=== PATIENT | male | born 1965 | race Two or more races ===

== ENCOUNTER → 2017-09-20 06:50 | Outpatient (CLI) | payer MEDICARE, MEDICAID, SELFPAY ==
--- NOTE | 2017-09-20 06:54 | CA_ITS ---
CA echo doppler complete PROCEDURE: INDICATIONS FOR THE TEST: Chest pain COPD Heart Murmur Tobacco Smoking Palpitations Fatigue Syncope Edema HypertensionXDiabetes MellitusX Rheumatic Fever SOB NOLAN Obesity HyperlipidemiaX Family History HD Additional History CAD,CABG PATIENT INFORMATION HEIGHT: 71 WEIGHT:200 GENDER: Male B/P:164/76 2-D/M-MODE INTERPRETATION: 2-D MEASUREMENTS OBSERVED VALUES IN CMS Right Ventricular Dimension (RVDd) 3.2 Interventricular Septum (Thickness)(IVsd) .9 Left Ventricular Internal Dimensions(LVIDd) 6.0 Left Ventricular Posterior Wall (Thickness)(LVPWd) .9 Aortic Root 3.3 Aortic Cusp Separation 1.5 Left Atrial Dimensions (LAD) 3.9 2D 1. Left atrium is mildly enlarged, left ventricle is normal size, there is mild qualitative concentric left ventricular hypertrophy present, visually estimated ejection fraction 55% with no obvious regional wall motion abnormality. 2. The right atrium and right ventricle are mildly enlarged with normal contractility. 3. The aortic valve is minimally thickened and fibrosed. 4. The mitral and tricuspid valvular grossly normal. 5. The pulmonic valve is poorly visualized. 6. No significant pericardial effusion noted. DOPPLER INTERROGATION: Doppler interrogation of the aortic, mitral and tricuspid valvular presence of mild mitral and tricuspid regurgitation, calculated right ventricular systolic pressure is 43 mmHg consistent with moderate pulmonary hypertension, grade 1 diastolic dysfunction seen with tissue Doppler evidence of raised left atrial pressure. CONCLUSION: 1. Mildly enlarged left atrium, normal left ventricular size, mild qualitative concentric left ventricular hypertrophy, visually estimated ejection fraction 55% with no obvious regional wall motion abnormality, grade 1 diastolic dysfunction seen with tissue Doppler evidence of raised left atrial pressure. 2. Mildly enlarged right ventricle with normal contractility. 3. Mild mitral and tricuspid regurgitation, calculated right ventricular systolic pressure is 43 mmHg consistent with moderate pulmonary hypertension. 4. No significant pericardial effusion noted.
--- NOTE | 2017-09-20 06:54 | NM_ITS ---
History and Indications: Coronary artery disease, bypass surgery, hypertension, diabetes hyperlipidemia family history chest pain. Procedure: Patient received a 0.4 mg of Lexiscan, resting heart rate was 77 beats prominent, resting blood pressure 194/99, with Lexiscan maximum heart rate achieved was 94 bpm which is less than 85% of the maximum predicted heart rate and a blood pressure 177/92. Patient describes of chest pain or shortness of breath with Lexiscan. Electrocardiogram: Resting electrocardiogram showed sinus bradycardia inferolateral ST-T wave changes consider strain pattern or ischemia. With Lexiscan there is less than 1.[address] segment depression noted from the baseline EKG. The EKG portion of the Lexiscan Myoview is nondiagnostic. Cardiac stress and resting SPECT images: Cardiac stress and rest SPECT images were obtained using technetium 99 Myoview 31 mCi at stress and the 10.5 mCi at rest. Gated SPECT further analysis of segmental wall motion and calculation of the ejection fraction also done. Cardiac stress and rest images show a fixed defect involving the inferolateral and posterobasal wall consistent with area of prior myocardial scarring, in addition there is reversible ischemia involving the anterolateral wall. Computer derived ejection fraction is 39% with moderate inferolateral wall hypokinesis, right ventricle is normal size and contractility. Conclusion: 1. The EKG portion of the Lexiscan Myoview is nondiagnostic. 2. Scintigraphic evidence of reversible ischemia involving the anterolateral wall, and 80 of prior myocardial scarring inferolateral and posterobasal wall. Computer derived ejection fraction is 39% segmental wall motion abnormality described above, right ventricle is normal size and contractility. 3. Abnormal Lexiscan Myoview study.
--- NOTE | 2017-09-20 07:29 | HMH.ITSHM ---
ZOLOFT METOPROLOL METFORMIN LISINOPRIL CRESTOR GLIMIPRIDE ASA PLAVIX
--- NOTE | 2017-09-20 09:13 | HMH.ITSHM ---
ZOLOFT METOPROLOL METFORMIN LISINOPRIL CRESTOR GLIMIPRIDE ASA PLAVIX
== END ==
PROVIDERS: Visit Provider Internal Medicine Cardiovascular Disease
DX: R06.00 Dyspnea, unspecified (principal)
CPT/HCPCS: 78452; 93017; 93306; A9502; J2785

== ENCOUNTER → 2018-09-11 07:43 | Outpatient (CLI) | payer MEDICARE, SELFPAY ==
--- NOTE | 2018-09-11 07:48 | NM_ITS ---
CARDIOLITE SPECT MYOCARDIAL PERFUSION LEXISCAN, REST AND STRESS: [facility] REVIEW QGS EF AND WALL MOTION EVALUATION: QPS - PERFUSION EVALUATION HISTORY: sob DOSE: 10.65 mCi technetium 99m mibi intravenously at rest followed by 31.6 mCi technetium 99m mibi following the intravenous ministration of 0.4 mg of Lexiscan. Resting blood pressure is 186/103. Stress blood pressure 167/86. FINDINGS: Ejection fraction is calculated to be 39%. Stress images reveal transient left ventricular dilatation with severely reduced activity throughout the inferior wall apex lateral wall and a portion of the anterior wall. Rest images reveal significant improvement in the lateral wall and apex with improved activity in the inferior wall yet still diminished without normal uptake. Gated images calculated ejection fraction of 39% with inferoapical hypokinesis and lateral hypokinesis. This is a high risk abnormal stress test IMPRESSION:
[2018-09-11 08:49] LABS: Basophils % 0.5 % (0.1-2.0); Eosinophils # 0.1 K/mm3 (0.0-0.4); Eosinophils % 1.9 % (0.1-12.0); Hematocrit 39.4 % (42.0-52.0); Hemoglobin 12.8 g/dL (14.1-18.0); Lymphocytes # 1.2 K/mm3 (0.7-4.5); Lymphocytes % 22.9 % (10-50); Mean Corpuscular HGB Conc 32.6 g/dL (31.8-35.4); Mean Corpuscular Hemoglobin 25.4 pg (27.0-31.2); Mean Platelet Volume 7.4 fl (7.4-10.4); Monocytes # 0.3 K/mm3 (0.1-1.0); Monocytes % 5.5 % (1.7-9.3); Neutrophils # 3.7 K/mm3 (1.8-7.8); Neutrophils % 69.2 % (37.0-80.0); Platelet Count 183 K/mm3 (142-424); Red Blood Count 5.05 M/mm3 (4.60-6.20); Red Cell Distribution Width 13.5 % (11.5-17.5); White Blood Count 5.3 K/mm3 (4.8-10.8)
[2018-09-11 09:24] LABS: Alanine Aminotransferase 35 U/L (12-78); Albumin Level 3.2 gm/dL (3.4-5.0); Alkaline Phosphatase 51 U/L (46-116); Anion Gap 11.2 mEq/L (5-15); Aspartate Amino Transferase 21 U/L (15-37); Bilirubin,Total 0.7 mg/dL (0.2-1.0); Blood Urea Nitrogen 26 mg/dL (7-18); Calcium 8.2 mg/dL (8.5-10.1); Carbon Dioxide 29 mmol/L (21.0-32.0); Chloride 105 mmol/L (98-107); Chol/HDL Ratio 6.9 (1-3.5); Cholesterol 337 mg/dL (140-200); Creatinine,Serum 0.89 mg/dL (0.70-1.30); Estimated Glomerular Filt Rate 89 ml/min (>60); GFR (African American) 108 ML/MIN (>60); Globulin 3.2 gm/dl (1.3-3.2); Glucose 147 mg/dL (74-106); HDL Cholesterol 49 mg/dL (27-67); LDL Cholesterol 257 mg/dL (0-130); Potassium 4.2 mmoL/L (3.5-5.1); Sodium 141 mmol/L (136-145); Thyroid Stimulating Hormone 1.11 uIU/ml (0.358-3.740); Total Protein,Serum 6.4 gm/dL (6.4-8.2); Triglycerides 157 mg/dL (30-200); VLDL Cholesterol 31 mg/dL (0-40)
--- NOTE | 2018-09-11 09:51 | HMH.ITSHM ---
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 [] amlodipine lipitor carvedilol metformin asa lisinopril zoloft
--- NOTE | 2018-09-11 10:48 | XR_ITS ---
XR foot RT min 3V HISTORY: ITS.REASON: WINIFRED FOOT PAIN ORDERING PHYSICIAN: Claudia Adhikari APRN PATIENT AGE: 53 years COMPARISON: None FINDINGS: There are hypertrophic changes dorsally at the talonavicular joint. No fracture or dislocation. No lytic or blastic change. There is normal alignment. There is some mild vascular calcification IMPRESSION: Mild degenerative change at the talonavicular joint
--- NOTE | 2018-09-11 10:48 | XR_ITS ---
XR foot LT min 3V HISTORY: ITS.REASON: WINIFRED FOOT PAIN ORDERING PHYSICIAN: Claudia Adhikari APRN PATIENT AGE: 53 years COMPARISON: None FINDINGS: Degenerative changes are present at the calcaneocuboid joint with some mild hypertrophic change laterally. There are some mild degenerative change is also with a lung navicular joint with mild bony hypertrophic change. No fracture or dislocation. No lytic or blastic change. 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
[2018-09-11 12:22] LABS: Hemoglobin A1C 7.5 % (0.0-7.0)
[2018-09-13 08:57] LABS: Vitamin B12 388 pg/mL (232-1245)
[2018-09-13 15:11] LABS: Ferritin 32 ng/mL (8-388)
[2018-09-15 08:23] LABS: Iron 73 ug/dL (38-169); Iron Saturation 23 % (15-55); UIBC 246 ug/dL (111-343)
[2018-09-15 18:02] LABS: Folate 12.4 ng/mL (>3.0)
== END ==
PROVIDERS: PCP Nurse Practitioner Family; Visit Provider Nurse Practitioner Family
DX: R07.9 Chest pain, unspecified (principal); R06.09 Other forms of dyspnea; E11.49 Type 2 diabetes mellitus with other diabetic neurological complication; I10 Essential (primary) hypertension; M79.672 Pain in left foot; M79.671 Pain in right foot; Z79.84 Long term (current) use of oral hypoglycemic drugs
CPT/HCPCS: 73630; 78452; 80053; 80061; 82607; 82728; 82746; 83036; 83540; 83550; 84443; 85025; 93017; A9502; J2785

== ENCOUNTER → 2019-03-14 16:55 | Outpatient (CLI) | payer MEDICARE, SELFPAY ==
[2019-03-14 17:28] LABS: Basophils % 0.6 % (0.1-2.0); Eosinophils # 0.2 K/mm3 (0.0-0.4); Eosinophils % 2.8 % (0.1-12.0); Hematocrit 36.6 % (42.0-52.0); Hemoglobin 12.4 g/dL (14.1-18.0); Lymphocytes # 1.6 K/mm3 (0.7-4.5); Lymphocytes % 25.9 % (10-50); Mean Corpuscular HGB Conc 33.9 g/dL (31.8-35.4); Mean Corpuscular Hemoglobin 27.4 pg (27.0-31.2); Mean Corpuscular Volume 80.8 fl (80-94); Mean Platelet Volume 8.3 fl (7.4-10.4); Monocytes # 0.3 K/mm3 (0.1-1.0); Monocytes % 4.9 % (1.7-9.3); Neutrophils % 65.7 % (37.0-80.0); Platelet Count 168 K/mm3 (142-424); Red Blood Count 4.53 M/mm3 (4.60-6.20); Red Cell Distribution Width 13.8 % (11.5-17.5); White Blood Count 6.1 K/mm3 (4.8-10.8)
[2019-03-14 18:46] LABS: Hemoglobin A1C 6.9 % (0.0-7.0)
[2019-03-14 21:25] LABS: Alanine Aminotransferase 37 U/L (12-78); Albumin Level 3.3 gm/dL (3.4-5.0); Albumin/Globulin Ratio 1.2 (1.1-1.8); Alkaline Phosphatase 54 U/L (46-116); Anion Gap 13.6 mEq/L (5-15); Aspartate Amino Transferase 32 U/L (15-37); Bilirubin,Total 0.5 mg/dL (0.2-1.0); Blood Urea Nitrogen 21 mg/dL (7-18); Calcium 8.2 mg/dL (8.5-10.1); Carbon Dioxide 27 mmol/L (21.0-32.0); Chloride 104 mmol/L (98-107); Creatinine,Serum 0.95 mg/dL (0.70-1.30); Estimated Glomerular Filt Rate 83 ml/min (>60); GFR (African American) 100 ML/MIN (>60); Globulin 2.8 gm/dl (1.3-3.2); Glucose 97 mg/dL (74-106); Potassium 3.6 mmoL/L (3.5-5.1); Sodium 141 mmol/L (136-145); Total Protein,Serum 6.1 gm/dL (6.4-8.2)
[2019-03-16 09:16] LABS: Creatinine, Urine 59.3 mg/dL (Not Estab.)
== END ==
PROVIDERS: Visit Provider Nurse Practitioner Family
DX: E11.59 Type 2 diabetes mellitus with other circulatory complications (principal); D64.9 Anemia, unspecified; Z79.84 Long term (current) use of oral hypoglycemic drugs
CPT/HCPCS: 36415; 80053; 82043; 82570; 83036; 85025

== ENCOUNTER → 2019-08-08 15:05 | Outpatient (CLI) | payer OTHER, SELFPAY ==
[2019-08-08 15:37] LABS: Basophils % 0.5 % (0.1-2.0); Eosinophils # 0.1 K/mm3 (0.0-0.4); Eosinophils % 2.8 % (0.1-12.0); Hemoglobin 12.6 g/dL (14.1-18.0); Lymphocytes # 1.4 K/mm3 (0.7-4.5); Lymphocytes % 28.8 % (10-50); Mean Corpuscular HGB Conc 33.1 g/dL (31.8-35.4); Mean Corpuscular Hemoglobin 26.6 pg (27.0-31.2); Mean Corpuscular Volume 80.4 fl (80-94); Mean Platelet Volume 7.8 fl (7.4-10.4); Monocytes # 0.3 K/mm3 (0.1-1.0); Platelet Count 170 K/mm3 (142-424); Red Blood Count 4.73 M/mm3 (4.60-6.20); Red Cell Distribution Width 13.6 % (11.5-17.5); White Blood Count 4.8 K/mm3 (4.8-10.8)
[2019-08-08 16:30] LABS: Alanine Aminotransferase 19 U/L (12-78); Albumin Level 4.1 g/dl (3.5-5.0); Albumin/Globulin Ratio 1.8 (1.1-1.8); Alkaline Phosphatase 50 U/L (38-126); Anion Gap 10.4 mEq/L (5-15); Aspartate Amino Transferase 27 U/L (17-59); Bilirubin,Total 0.4 mg/dl (0.2-1.3); Blood Urea Nitrogen 29 mg/dl (9-20); Calcium 9.1 mg/dl (8.4-10.2); Carbon Dioxide 26 mmol/L (22.0-30.0); Chloride 100 mmol/L (98-107); Estimated Glomerular Filt Rate 78 ml/min (>60); GFR (African American) 94 ML/MIN (>60); Globulin 2.3 g/dL (1.3-3.2); Glucose 145 mg/dl (74-100); Potassium 4.4 mmoL/L (3.5-5.1); Sodium 132 mmol/L (136-145); Total Protein,Serum 6.4 g/dl (6.3-8.2)
[2019-08-08 18:13] LABS: Hemoglobin A1C 7.5 % (4.0-6.0)
== END ==
PROVIDERS: Visit Provider Nurse Practitioner Family
DX: I10 Essential (primary) hypertension (principal); E11.49 Type 2 diabetes mellitus with other diabetic neurological complication; Z79.84 Long term (current) use of oral hypoglycemic drugs
CPT/HCPCS: 36415; 80053; 83036; 85025

== ENCOUNTER 2019-08-22 18:15 | Emergency (ER) | payer OTHER, SELFPAY ==
[2019-08-22 18:26] VITALS: BP 154/86; PULSE 83; RESP 16; TEMP 36.9; O2SAT 98; BMI 32.2
--- NOTE | 2019-08-22 18:49 | HMH.EDUTC ---
[facility] Disposition Clinical Impression: Toe infection Disposition: Home, Self-Care Condition on Discharge: Good Instructions: DI for Wound Infection, Clindamycin, Bacitracin Topical Additional Instructions: Keep area clean and dry and clean with antibacterial soap and water and apply Bacitracin to nailbed area as prescribed and loose non-occlusive dressing *Take oral antibiotics as prescribed Follow up with Dr Drew as soon as possible call office for appointment Return if needed Straight to ER if any life threatening symptoms Prescriptions: Bacitracin [Bacitracin Oint 0.9GM UDP] 1 each TP TID 10 Days #30 packet Transmission Status: Pending to [id number] clindamycin HCL [Clindamycin HCl 300mg Cap] 300 mg PO Q6 10 Days #40 cap Transmission Status: Pending to [id number] Referrals: Claudia Adhikari APRN [Primary Care Provider] - As needed Monse Drew DPM [Staff Physician] - As needed (Call office tomorrow for appointment and follow up as soon as appointment) Time of Disposition: 19:03 Medical Decision Making - Jose Manuel Inquiry Pt receiving controlled substance: No Jose Manuel was queried for this patient: No Vital Signs: 08/22/19 18:26 Temperature 98.4 F Temperature Source Oral Pulse Rate [Right Brachial] 83 Respiratory Rate 16 Blood Pressure [Right Arm] 154/86 H Blood Pressure Mean [Right Arm] 108 Blood Pressure Source [Right Arm] Automatic Cuff Blood Pressure Position [Right Arm] Sitting 02 Sat by Pulse Oximetry 98 Oxygen Delivery Method Room Air - Physician Consults Physician Consulted: Dr Drew Time: 18:55 Reason -: Podiatry Eval/Care Comment/Response: Spoke with Dr Drew and informed her of patient and findings on left great toe and will treat with Clindamycin oral, and bacitracin to nailbed area and have him call clinic for appointment for follow up and further treatment and she agreed [facility] HPI - General Stated complaint: AO [id number] injured L Big toe Time Seen by Provider: 08/22/19 18:49 Mode of Arrival: Ambulatory Source of Information: Patient Limitations: No Limitations Description of Symptoms (Recalled from Triage Doc. by RN): Pt advises he was working in his basement when it was flooding and when he took his boot off his left great toenail was in his sock. pt is a diabetic HEENT Symptoms (Recalled from RN notes): No Resp Symptoms (Recalled from RN notes): No Skin Symptoms (Recalled from RN notes): No MS Symptoms (Recalled from RN notes): No Functional Status (Recalled from RN notes): na - History of Present Illness Provider Complaint: Patient states that he stomped his toe a couple of days ago and hurt his toe and nail area States then his basement was flooding and he stood in water in his basement for a little while and his feet was wet States that today he took his sock off and his toe nail fell off and his toe looked red and infected so he came in to get it checked - Related Data Home Medications Medication Instructions Recorded Confirmed Aspirin 81 mg PO DAILY 09/21/17 08/22/19 Clopidogrel Bisulfate [Plavix 75mg 75 mg PO DAILY 09/21/17 08/22/19 Tab] Glimepiride [Amaryl] 2 mg PO DAILY 09/21/17 08/22/19 Metformin HCl [Glucophage 500mg 0 mg PO BID 09/21/17 08/22/19 Tablet] Metoprolol Tartrate 50 mg PO BID 09/21/17 08/22/19 Rosuvastatin Calcium [Crestor] 20 mg PO DAILY 09/21/17 08/22/19 Sertraline HCl [Zoloft] 50 mg PO DAILY 09/21/17 08/22/19 lisinopriL [Lisinopril 20mg Tab] 20 mg PO DAILY 09/21/17 08/22/19 Amlodipine Besylate [Norvasc 5mg 5 mg PO DAILY 09/22/17 08/22/19 tablet] Previous Rx's Medication Instructions Recorded Bacitracin [Bacitracin Oint 0.9GM 1 each TP TID 10 Days #30 packet 08/22/19 UDP] clindamycin HCL [Clindamycin HCl 300 mg PO Q6 10 Days #40 cap 08/22/19 300mg Cap] Allergies Allergy/AdvReac Type Severity Reaction Status Date / Time No Known Allergies Allergy Verified 08/22/19 18:24 - Worker's Comp
[2019-08-22 19:05] VITALS: BP 150/80; PULSE 80; RESP 16; TEMP 36.7; O2SAT 98
== END 2019-08-22 19:05 | disposition home or self-care (01) ==
PROVIDERS: Emergency Provider Nurse Practitioner; PCP Nurse Practitioner Family
DX: L03.032 Cellulitis of left toe (principal); E11.621 Type 2 diabetes mellitus with foot ulcer; Z79.84 Long term (current) use of oral hypoglycemic drugs; E78.5 Hyperlipidemia, unspecified; I10 Essential (primary) hypertension; Z95.1 Presence of aortocoronary bypass graft; Z79.899 Other long term (current) drug therapy
CPT/HCPCS: 99201

== ENCOUNTER 2019-11-15 20:00 | Observation (INO) | payer MEDICARE, OTHER, SELFPAY ==
[2019-11-15] VITALS (8 sets, daily range): BP systolic 141–173; BP diastolic 57–94; PULSE 60–85; RESP 12–18; TEMP 36.6–36.8; O2SAT 95–98; BMI 30.8; BMI 29.9
--- NOTE | 2019-11-15 19:55 | ECG_ITS ---
APPROVED REPORT Exam: Resting ECG HR:80 bpm ECG Measurements Heart Rate 80 AXES AR 152 P 70 QRSd 104 QRS 8 QT 370 T 54 QTc 426 <Conclusion> Normal sinus rhythm Inferior/lateral infarct,old Abnormal ECG Electronically signed by : Manuel Chiang, 11/16/2019 20:57:35
--- NOTE | 2019-11-15 20:04 | XR_ITS ---
PROCEDURE: XR CHEST 2V CLINICAL HISTORY: chest pain Heart disease COMPARISON: CR XR RIBS RT MIN 3V W CXR1V from 05/28/2019 FINDINGS: The cardiomediastinal silhouette and pulmonary vascularity are within normal limits. The lungs are clear without infiltrates, suspicious nodules, or pleural effusions. No acute bony abnormalities. IMPRESSION: No acute findings. Dictated by: Samm Selby MD 11/15/2019 21:26 Samm Selby MD in [place] 11/15/2019 21:26
[2019-11-15 20:16] LABS: Basophils % 0.4 % (0.1-2.0); Eosinophils # 0.2 K/mm3 (0.0-0.4); Eosinophils % 3.5 % (0.1-12.0); Hematocrit 34.1 % (42.0-52.0); Hemoglobin 12.4 g/dL (14.1-18.0); Lymphocytes # 1.7 K/mm3 (0.7-4.5); Lymphocytes % 31.5 % (10-50); Mean Corpuscular HGB Conc 36.4 g/dL (31.8-35.4); Mean Corpuscular Hemoglobin 28.4 pg (27.0-31.2); Mean Corpuscular Volume 78.1 fl (80-94); Mean Platelet Volume 7.9 fl (7.4-10.4); Monocytes # 0.3 K/mm3 (0.1-1.0); Monocytes % 5.6 % (1.7-9.3); Neutrophils # 3.2 K/mm3 (1.8-7.8); Neutrophils % 58.9 % (37.0-80.0); Platelet Count 149 K/mm3 (142-424); Red Blood Count 4.36 M/mm3 (4.60-6.20); Red Cell Distribution Width 13.9 % (11.5-17.5); White Blood Count 5.4 K/mm3 (4.8-10.8)
[2019-11-15 20:30] LABS: Anion Gap 11.9 mEq/L (5-15); Blood Urea Nitrogen 23 mg/dl (9-20); Carbon Dioxide 29 mmol/L (22.0-30.0); Chloride 97 mmol/L (98-107); Creatinine Clearance Estimated 118 mL/min (50-200); Estimated Glomerular Filt Rate 78 ml/min (>60); GFR (African American) 94 ML/MIN (>60); Glucose 271 mg/dl (74-100); Potassium 3.9 mmoL/L (3.5-5.1); Sodium 134 mmol/L (136-145)
[2019-11-15 20:38] LABS: Adenovirus,PCR Not Detected (NotDetected); Bordetella Pertussis Not Detected (NotDetected); Chlamydophila Pneumoniae, PCR Not Detected (NotDetected); Coronavirus 19, PCR Not Detected (NotDetected); Coronavirus 229E Not Detected (NotDetected); Coronavirus NL63 Not Detected (NotDetected); Coronavirus OC43 Not Detected (NotDetected); Coronovirus HKU1,PCR Not Detected (NotDetected); Human Metapneumovirus Not Detected (NotDetected); Influenza A, PCR Not Detected (NotDetected); Influenza AH1, 2009 Not Detected (NotDetected); Influenza AH1, PCR Not Detected (NotDetected); Influenza AH3,PCR Not Detected (NotDetected); Influenza B, PCR Not Detected (NotDetected); Mycoplasma Pneumoniae, PCR Not Detected (NotDetected); Parainfluenza 1, PCR Not Detected (NotDetected); Parainfluenza 2, PCR Not Detected (NotDetected); Parainfluenza 3, PCR Not Detected (NotDetected); Parainfluenza 4, PCR Not Detected (NotDetected); Respiratory Syncytial Virus Not Detected (NotDetected); Rhinovirus/Enterovirus Not Detected (NotDetected)
[2019-11-15 20:46] LABS: Troponin I < 0.01 ng/ml (0.00-0.034)
--- NOTE | 2019-11-15 20:55 | HMH.EDCP ---
ED Disposition Clinical Impression: Obesity (BMI 30.0-34.9), S/P CABG (coronary artery bypass graft) Chest pain Qualifiers: Chest pain type: precordial pain Qualified Code(s): R07.2 - Precordial pain Diabetes mellitus Qualifiers: Diabetes mellitus type: type 2 Diabetes mellitus senior living insulin use: unspecified senior living insulin use status Diabetes mellitus complication status: with other specified complication Qualified Code(s): E11.69 - Type 2 diabetes mellitus with other specified complication Disposition: Admitted as Observation Condition on Discharge: Good Referrals: Claudia Adhikari APRN [Primary Care Provider] - - Critical Care Critical Care Time: No Attestation: On 11/15/19, the high probability of a clinically significant, sudden or life threatening deterioration of the following system(s) required my full and direct attention, intervention and personal management. The time I documented below is in addition to time spent performing reported procedures but includes the following listed in this critical care notation. Medical Decision Making - Medical Records Medical records reviewed: Yes: I reviewed the patient's medical records. - Jose Manuel Inquiry Pt receiving controlled substance: No Vital Signs: 11/15/19 20:03 11/15/19 20:30 11/15/19 21:00 Temperature 98.0 F Temperature Source Oral Pulse Rate [Right Brachial] 85 78 60 Respiratory Rate 18 16 18 Blood Pressure [Right Arm] 168/57 H 173/84 H 145/81 H Blood Pressure Mean [Right Arm] 94 113 102 Blood Pressure Source [Right Arm] Automatic Cuff Automatic Cuff Automatic Cuff Blood Pressure Position [Right Arm] Sitting Supine Supine 02 Sat by Pulse Oximetry 96 98 95 Oxygen Delivery Method Room Air Room Air Room Air - Lab Data Lab results reviewed: Yes: I reviewed the patient's lab results. Lab Results 11/15/19 20:00: Troponin I < 0.01 11/15/19 20:00: WBC 5.4, RBC 4.36 L, Hgb 12.4 L, Hct 34.1 L, MCV 78.1 L, MCH 28.4, MCHC 36.4 H, RDW 13.9, Plt Count 149, MPV 7.9, Neut % (Auto) 58.9, Lymph % (Auto) 31.5, [place] % (Auto) 5.6, Eos % (Auto) 3.5, Baso % (Auto) 0.4, Neut # (Auto) 3.2, Lymph # (Auto) 1.7, [place] # (Auto) 0.3, Eos # (Auto) 0.2, Baso # (Auto) 0.0 11/15/19 20:00: Sodium 134 L, Potassium 3.9, Chloride 97 L, Carbon Dioxide 29, Anion Gap 11.9, BUN 23 H, Creatinine 1.00, Estimated Creat Clear 118, Estimated GFR 78, Est GFR ( Amer) 94, Glucose 271 H, Calcium 9.0 Result diagrams: 11/15/19 20:00 11/15/19 20:00 Orders (Tests/Meds): ED MEDICATIONS Discontinued Medications Generic Name Dose Route Start Last Admin Trade Name Freq PRN Reason Stop Dose Admin Aspirin 243 mg 11/15/19 20:04 11/15/19 20:14 Aspirin 81mg Chewable Tablet PO 11/15/19 20:05 243 mg ONCE ONE Administration Morphine Sulfate 4 mg 11/15/19 20:22 11/15/19 20:23 Morphine 4mg/Ml Syringe IV 11/15/19 20:23 4 mg ONCE ONE Administration Nitroglycerin 1 gm 11/15/19 20:04 11/15/19 20:16 Nitroglycerin 1 Inch Oint Udp TD 11/15/19 20:05 1 gm ONCE ONE Administration Nitroglycerin 0.4 mg 11/15/19 20:04 11/15/19 20:14 Nitrostat 0.4mg Sl Tablet SL 11/15/19 20:05 0.4 mg ONCE ONE Administration Ondansetron HCl 4 mg 11/15/19 20:18 11/15/19 20:20 Zofran 4mg/2ml Vial IV 11/15/19 20:19 4 mg ONCE ONE Administration ORDERS Category Date Time Status XR chest 2V Stat Exams 11/15/19 20:04 Taken Full Resp Panel (COVID)(INPT) Routine Lab 11/15/19 20:29 Received Troponin I Q3H Lab 11/15/19 23:15 Ordered Troponin I Q3H Lab 11/16/19 02:15 Ordered - Radiology Data #1 Image(s): Chest Image Reviewed: Yes I reviewed the patient's radiology image Preliminary Findings: Normal/NAD - ECG Data Tracing #1 Normal Sinus Rhythm: Yes Ischemic changes: non-specific ST-T wave changes - Physician Consults Physician Consulted: amelia Reason -: Admission Chest Pain HPI - General Chief Complaint: Chest Pain St
--- NOTE | 2019-11-15 21:00 | PC.NURSE ---
follow up after morphine pt reports chest pain has been resolved.
--- NOTE | 2019-11-15 22:54 | PC.NURSE ---
Pt arrived to the floor via w/c at this time.
[2019-11-16] VITALS: PULSE 80
[2019-11-16 00:06] LABS: Troponin I < 0.01 ng/ml (0.00-0.034)
[2019-11-16 02:37] LABS: Troponin I < 0.01 ng/ml (0.00-0.034)
--- NOTE | 2019-11-16 03:40 | PC.NURSE ---
pt is A&OX4 lungs CTA. pt denies SOA and CP since being on the floor. pt c/o of [place] medicated per MAR. NSR on tele. pt refused teds. ambulates to BR and tolerates well.
[2019-11-16 04:00] VITALS: BP 119/72; PULSE 80; PULSE 85; RESP 14; TEMP 36.4; O2SAT 94
[2019-11-16 05:00] VITALS: BMI 30.1
[2019-11-16 06:11] LABS: POC Glucose,Bedside 220 (70-110)
[2019-11-16 07:04] LABS: Chloride 104 mmol/L (98-107); Potassium 3.7 mmoL/L (3.5-5.1); Sodium 137 mmol/L (136-145)
[2019-11-16 07:05] LABS: Basophils % 0.4 % (0.1-2.0); Eosinophils # 0.1 K/mm3 (0.0-0.4); Eosinophils % 3.5 % (0.1-12.0); Hematocrit 33.1 % (42.0-52.0); Hemoglobin 11.7 g/dL (14.1-18.0); Lymphocytes # 1.5 K/mm3 (0.7-4.5); Lymphocytes % 39.8 % (10-50); Mean Corpuscular HGB Conc 35.4 g/dL (31.8-35.4); Mean Corpuscular Hemoglobin 28.5 pg (27.0-31.2); Mean Corpuscular Volume 80.4 fl (80-94); Mean Platelet Volume 7.9 fl (7.4-10.4); Monocytes # 0.2 K/mm3 (0.1-1.0); Monocytes % 6.5 % (1.7-9.3); Neutrophils # 1.9 K/mm3 (1.8-7.8); Neutrophils % 49.7 % (37.0-80.0); Platelet Count 141 K/mm3 (142-424); Red Blood Count 4.11 M/mm3 (4.60-6.20); Red Cell Distribution Width 13.8 % (11.5-17.5); White Blood Count 3.7 K/mm3 (4.8-10.8)
[2019-11-16 07:06] LABS: Blood Urea Nitrogen 19 mg/dl (9-20); Creatinine Clearance Estimated 128 mL/min (50-200); Estimated Glomerular Filt Rate 88 ml/min (>60); GFR (African American) 106 ML/MIN (>60)
[2019-11-16 07:07] LABS: Anion Gap 8.7 mEq/L (5-15); Calcium 8.6 mg/dl (8.4-10.2); Carbon Dioxide 28 mmol/L (22.0-30.0); Cholesterol 275 mg/dl (140-200); Glucose 204 mg/dl (74-100); Magnesium 1.7 mg/dl (1.6-2.3); Triglycerides 300 mg/dl (30-150); VLDL Cholesterol 60 mg/dL (0-40)
[2019-11-16 07:08] LABS: Chol/HDL Ratio 7.2 (1-3.5); HDL Cholesterol 38 mg/dl (40-60)
[2019-11-16 07:18] LABS: Direct LDL Cholesterol 137.58 mg/dL (100-129)
[2019-11-16 07:47] VITALS: BP 142/83; PULSE 77; RESP 18; TEMP 36.6; O2SAT 96
[2019-11-16 08:00] VITALS: PULSE 70
--- NOTE | 2019-11-16 09:53 | HMH.HPDC ---
General - General Admission date:: 11/15/19 Discharge date: 11/16/19 *Admission Date: 11/15/19 *Chief complaint: chest pain *History of present illness: 54-year-old gentleman with history of coronary artery bypass surgery in 2017, insulin-dependent diabetes, hypertension, and hyperlipidemia who presented with onset of chest pain yesterday to the ER. Patient states he had some pressure-like pain in his chest while painting a bird house at home. Was not relieved by rest or made worse by exertion. Took a nitroglycerin at home with no benefit so his made him come to the ER for evaluation. Upon arrival he was given more aggressive treatment with improvement in his chest pain. EKG showed nonspecific ST changes, initial troponin was normal. Admitted for observation overnight. Denies any further chest pain this morning. No shortness of breath, nausea, vomiting. Reports he has a mild case of acid reflux at this time but the sensation is different than pain from yesterday. at bedside with him on rounds this morning [facility] History I have reviewed the patient's past medical history: Yes Medical History: Reports:: Atherosclerotic Heart Disease, Coronary Artery Disease, Diabetes Mellitus Type 2, Gastroesophageal Reflux Disease(GERD), Hyperlipidemia, Hypertension, Myocardial Infarction Denies:: Cancer, Internal Pacemaker, Seizures *Have you ever received a pneumonia vaccine?: Yes *Have you received a flu vaccine this season?: Yes Other Medical History: Reports: Cataracts, Other Other Surgeries: Yes: CABG, Cardiac Catheterization, Cardiac Surgery, Coronary Stent. No: Pacemaker Amputation: No Fractures: No - *Social History Last grade of school completed: 4th or less Smoking Status: Former smoker Tobacco Type: cigarettes #Yrs smoked (if former smoker): 44 Alcohol Intake: former Alcohol Intake Frequency:: other *Occupational Status:: retired Household Members: spouse *Travel in the last 8 weeks: None Family Hx:: Diabetes, Coronary Artery Disease, Hypertension Review of Systems - Review of Systems Review of systems:: pertinent systems reviewed and negative unless documented below (14 point review of systems performed, pertinent positives and negatives as per HPI) - *Neurologic Denies localized weakness Exam Vital signs and Labs for Last 24 Hours: Temp Pulse Resp BP Pulse Ox 97.9 F 77 18 142/83 H 96 11/16/19 07:47 11/16/19 07:47 11/16/19 07:47 11/16/19 07:47 11/16/19 07:47 Laboratory Results - last 24 hr 11/15/19 20:00: Troponin I < 0.01 11/15/19 20:00: WBC 5.4, RBC 4.36 L, Hgb 12.4 L, Hct 34.1 L, MCV 78.1 L, MCH 28.4, MCHC 36.4 H, RDW 13.9, Plt Count 149, MPV 7.9, Neut % (Auto) 58.9, Lymph % (Auto) 31.5, [place] % (Auto) 5.6, Eos % (Auto) 3.5, Baso % (Auto) 0.4, Neut # (Auto) 3.2, Lymph # (Auto) 1.7, [place] # (Auto) 0.3, Eos # (Auto) 0.2, Baso # (Auto) 0.0 11/15/19 20:00: Sodium 134 L, Potassium 3.9, Chloride 97 L, Carbon Dioxide 29, Anion Gap 11.9, BUN 23 H, Creatinine 1.00, Estimated Creat Clear 118, Estimated GFR 78, Est GFR ( Amer) 94, Glucose 271 H, Calcium 9.0 11/15/19 20:29: Chlamy pneumoniae PCR Not detected, Adenovirus (PCR) Not detected, B. pertussis DNA (PCR) Not detected, Coronavirus OC43 (PCR) Not detected, Coronavirus HKU1 (PCR) Not detected, Coronavirus 229E (PCR) Not detected, COVID-19 PCR Not detected, Coronavirus NL63 (PCR) Not detected, Human Metapneumovir PCR Not detected, Influenza A (H1) PCR Not detected, Influ A (H1N1/09) PCR Not detected, Influenza A (H3) PCR Not detected, Influenza Type A (PCR) Not detected, Influenza Type B (PCR) Not detected, M. pneumoniae (PCR) Not detected, Parainfluenza 1 (PCR) Not detected, Parainfluenza 2 (PCR) Not detected, Parainfluenza 3 (PCR) Not detected, Parainfluenza 4 (PCR) Not detected, RSV (PCR) Not detected, Entero/Rhino (PCR) Not detected 11/15/19 23:23: Troponin I < 0.01 11/16/19 02:00: Troponin I < 0.01 11/16/19 05:53: POC Glucose 220 H 11/16/19 06:30:
--- NOTE | 2019-11-16 10:04 | HMH.PHAVTE ---
[facility] Pharmacy VTE Monitoring - Patient Demographics Admission date: 11/15/19 Report Date: 11/16/19 Time: 10:04 Allergies/Adverse Reactions: Patient Allergies No Known Allergies Allergy (Verified 09/12/19 14:33) Height: 1.8 m Weight: 97.664 kg Patient Problems: Current Active Problems Chest pain (Acute) S/P CABG (coronary artery bypass graft) (Acute) Obesity (BMI 30.0-34.9) (Acute) Diabetes mellitus (Acute) - VTE Risk Labs: VTE Related Lab Results Hgb 11.7 g/dL (14.1-18.0) L 11/16/19 06:30 Hct 33.1 % (42.0-52.0) L 11/16/19 06:30 Plt Count 141 K/mm3 (142-424) L 11/16/19 06:30 BUN 19 mg/dl (9-20) 11/16/19 06:30 Creatinine 0.90 mg/dl (0.66-1.25) 11/16/19 06:30 Estimated Creat Clear 128 mL/min (50-200) 11/16/19 06:30 VTE Score: 6 VTE Risk Level: Moderate Risk - Prophylaxis VTE Prophylaxis Ordered?: Yes Types of VTE Prophylaxis: TEDS Knee High Location of Applied Device: Bilateral Lower Extremeties
--- NOTE | 2019-11-16 10:08 | HMH.PHAINT ---
HOME MEDICATIONS RECONCILED FROM [facility] FILL LIST.
== END 2019-11-16 10:50 | disposition home or self-care (01) ==
LOC: ER 20:12 → 2ND 21:11
PROVIDERS: Admitting Provider Family Medicine; Emergency Provider Emergency Medicine; PCP Nurse Practitioner Family; Visit Provider Internal Medicine Adolescent Medicine
DX: R07.9 Chest pain, unspecified (principal); I25.10 Atherosclerotic heart disease of native coronary artery without angina pectoris; Z95.1 Presence of aortocoronary bypass graft; I25.2 Old myocardial infarction; Z95.5 Presence of coronary angioplasty implant and graft; I10 Essential (primary) hypertension; E78.5 Hyperlipidemia, unspecified; Z79.4 Long term (current) use of insulin; E11.9 Type 2 diabetes mellitus without complications; Z79.899 Other long term (current) drug therapy
CPT/HCPCS: 36415; 71046; 80048; 80061; 82962; 83735; 84484; 85025; 87581; 87633; 87798; 93005; 96374; 96375; 99284; G0378; J2405

== ENCOUNTER → 2019-12-31 10:58 | Outpatient (CLI) | payer MEDICARE, OTHER, SELFPAY ==
--- NOTE | 2019-12-31 11:04 | XR_ITS ---
PROCEDURE: XR FOOT WT BEARING LT 3V CLINICAL INDICATION: 5th toe pain COMPARISON: No exams were available for comparison FINDINGS: There is a nondisplaced fracture involving the mid shaft of the proximal phalanx of the 5th toe. Osteoarthritic change noted at the talonavicular joint IMPRESSION: Nondisplaced fracture proximal phalanx 5th digit Dictated by: Samm Selby MD 12/31/2019 12:21 Samm Selby MD in [place] 12/31/2019 12:21
== END ==
PROVIDERS: PCP Nurse Practitioner Family; Visit Provider Nurse Practitioner
DX: M79.675 Pain in left toe(s) (principal)
CPT/HCPCS: 73630

== ENCOUNTER 2020-03-28 22:23 | Observation (INO) | payer MEDICARE, OTHER, SELFPAY ==
--- NOTE | 2020-03-28 | ECG_ITS ---
APPROVED REPORT Exam: Resting ECG HR:84 bpm ECG Measurements Heart Rate 84 AXES CO 148 P 72 QRSd 106 QRS 97 QT 382 T -23 QTc 451 Conclusion Normal sinus rhythm Rightward axis Old inferior changes Abnormal ECG Electronically signed by : Brian Mohr, 03/29/2020 07:43:16
[2020-03-28 22:23] VITALS: BP 158/90; PULSE 84; RESP 14; TEMP 36.8; O2SAT 98; BMI 31.5
[2020-03-28 22:24] VITALS: BMI 31.5
--- NOTE | 2020-03-28 22:25 | XR_ITS ---
PROCEDURE: XR CHEST PORTABLE Referring Doctor: Arden Soto Patient Age:54Y CLINICAL HISTORY: CP Left-sided chest pain nonsmoker CABG 2017 cardiac stents COMPARISON: CR XR RIBS RT MIN 3V W CXR1V from 05/28/2019 CR XR CHEST 2V from 11/15/2019 FINDINGS: AP portable upright chest/slight lordotic view performed today. This is compared to 11/15/2019 CXR The lungs appear well expanded and clear with nothing definitely acute. Upper normal markings at the medial left base observed but I believe stable and compatible with previous studies. The right lung appears relatively hyperexpanded but clear. No pleural effusion but no pneumothorax. threat monitoring analyst leads are in place Median sternotomy from CABG, heart appears normal upper normal size with normal pulmonary vascularity. Chest wall unremarkable IMPRESSION: Stable chest with nothing definitely acute. No acute cardiopulmonary findings Dictated by: Venkat Centeno MD 03/29/2020 16:28 Venkat Centeno MD in [place] 03/29/2020 16:28
[2020-03-28 22:32] LABS: Basophils % 0.6 % (0.1-2.0); Eosinophils # 0.2 K/mm3 (0.0-0.4); Hemoglobin 13.8 g/dL (14.1-18.0); Lymphocytes # 1.8 K/mm3 (0.7-4.5); Lymphocytes % 29.6 % (10-50); Mean Corpuscular HGB Conc 34.5 g/dL (31.8-35.4); Mean Corpuscular Hemoglobin 27.2 pg (27.0-31.2); Mean Corpuscular Volume 78.8 fl (80-94); Mean Platelet Volume 7.7 fl (7.4-10.4); Monocytes # 0.4 K/mm3 (0.1-1.0); Monocytes % 6.3 % (1.7-9.3); Neutrophils # 3.7 K/mm3 (1.8-7.8); Neutrophils % 60.6 % (37.0-80.0); Platelet Count 176 K/mm3 (142-424); Red Blood Count 5.07 M/mm3 (4.60-6.20); Red Cell Distribution Width 14.2 % (11.5-17.5); White Blood Count 6.1 K/mm3 (4.8-10.8)
[2020-03-28 22:52] LABS: Alanine Aminotransferase 30 U/L (12-78); Albumin Level 4.4 g/dl (3.5-5.0); Alkaline Phosphatase 64 U/L (38-126); Anion Gap 9.1 mEq/L (5-15); Aspartate Amino Transferase 43 U/L (17-59); Bilirubin,Direct 0.2 mg/dl (0.0-0.4); Bilirubin,Indirect 0.5 mg/dL (0.0-0.9); Bilirubin,Total 0.7 mg/dl (0.2-1.3); Bilirubin,Unconjugated 0.5 mg/dL (0.0-1.1); Blood Urea Nitrogen 20 mg/dl (9-20); Calcium 9.4 mg/dl (8.4-10.2); Carbon Dioxide 32 mmol/L (22.0-30.0); Chloride 100 mmol/L (98-107); Creatinine Clearance Estimated 98 mL/min (50-200); Estimated Glomerular Filt Rate 63 ml/min (>60); GFR (African American) 76 ML/MIN (>60); Glucose 215 mg/dl (74-100); Potassium 4.1 mmoL/L (3.5-5.1); Sodium 137 mmol/L (136-145); Total Protein,Serum 7.4 g/dl (6.3-8.2)
[2020-03-28 23:00] VITALS: BP 175/96; PULSE 79; RESP 15; O2SAT 97
[2020-03-28 23:04] LABS: Coronavirus 19 IgG Antibody Negative (Negative); Coronavirus 19 IgM Antibody Negative (Negative); Troponin I < 0.01 ng/ml (0.00-0.034)
--- NOTE | 2020-03-28 23:25 | HMH.EDCP ---
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 The time I documented below is in addition to time spent performing reported procedures but includes the following listed in this critical care notation. Medical Decision Making - Medical Records Medical records reviewed: Yes: I reviewed the patient's medical records. - Jose Manuel Inquiry Pt receiving controlled substance: No Vital Signs: 03/28/20 22:23 03/28/20 23:00 Temperature 98.3 F Temperature Source Oral Pulse Rate [Apical] 84 79 Respiratory Rate 14 15 Blood Pressure [Right Arm] 158/90 H 175/96 H Blood Pressure Mean [Right Arm] 112 122 Blood Pressure Source [Right Arm] Automatic Cuff Automatic Cuff Blood Pressure Position [Right Arm] Supine Supine 02 Sat by Pulse Oximetry 98 97 Oxygen Delivery Method Room Air Room Air - Lab Data Lab results reviewed: Yes: I reviewed the patient's lab results. Lab Results 03/28/20 22:15: WBC 6.1, RBC 5.07, Hgb 13.8 L, Hct 40.0 L, MCV 78.8 L, MCH 27.2, MCHC 34.5, RDW 14.2, Plt Count 176, MPV 7.7, Neut % (Auto) 60.6, Lymph % (Auto) 29.6, [place] % (Auto) 6.3, Eos % (Auto) 3.0, Baso % (Auto) 0.6, Neut # (Auto) 3.7, Lymph # (Auto) 1.8, [place] # (Auto) 0.4, Eos # (Auto) 0.2, Baso # (Auto) 0.0 03/28/20 22:15: Sodium 137, Potassium 4.1, Chloride 100, Carbon Dioxide 32 H, Anion Gap 9.1, BUN 20, Creatinine 1.20, Estimated Creat Clear 98, Estimated GFR 63, Est GFR ( Amer) 76, Glucose 215 H, Calcium 9.4, Total Bilirubin 0.7, Direct Bilirubin 0.2, Conjugated Bilirubin 0.0, Indirect Bilirubin 0.5, Unconjugated Bilirubin 0.5, AST 43, ALT 30, Alkaline Phosphatase 64, Troponin I < 0.01, Total Protein 7.4, Albumin 4.4 03/28/20 22:15: SARS-CoV-2 IgG Ab (Rapid) Negative, SARS-CoV-2 IgM Ab (Rapid) Negative Result diagrams: 03/28/20 22:15 03/28/20 22:15 Orders (Tests/Meds): ED MEDICATIONS Generic Name Dose Route Start Last Admin Trade Name Freq PRN Reason Stop Dose Admin Sodium Chloride 1,000 mls @ 999 mls/hr 03/28/20 22:45 03/28/20 22:41 Sod Chlor 0.9% 1000ml Bag IV 03/28/20 23:45 999 mls/hr .[id number] DANNIELLE Administration Discontinued Medications Generic Name Dose Route Start Last Admin Trade Name Freq PRN Reason Stop Dose Admin Aspirin 324 mg 03/28/20 22:30 03/28/20 22:31 Aspirin 81mg Chewable Tablet PO 03/28/20 22:31 324 mg ONCE ONE Administration Morphine Sulfate 4 mg 03/28/20 22:39 03/28/20 22:40 Morphine 4mg/Ml Syringe IV 03/28/20 22:40 4 mg ONCE ONE Administration Nitroglycerin 1 gm 03/28/20 22:34 03/28/20 22:38 Nitroglycerin 1 Gm Ointment TD 03/28/20 22:35 1 gm ONCE ONE Administration Ondansetron HCl 4 mg 03/28/20 22:39 03/28/20 22:40 Ondansetron 4mg/2ml Vial IV 03/28/20 22:40 4 mg ONCE ONE Administration ORDERS Category Date Time Status XR chest portable Stat Exams 03/28/20 22:25 Taken Troponin I Q3H Lab 03/29/20 01:30 Ordered Troponin I Q3H Lab 03/29/20 04:30 Ordered - Radiology Data #1 Image(s): Chest Image Reviewed: Yes I reviewed the patient's radiology image Preliminary Findings: Abnormal (cm) - ECG Data Tracing #1 Normal Sinus Rhythm: Yes Ischemic changes: non-specific ST-T
[2020-03-28 23:30] VITALS: BP 157/88; PULSE 75; RESP 12; O2SAT 96
[2020-03-29] VITALS (8 sets, daily range): BP systolic 133–155; BP diastolic 71–82; PULSE 75–81; RESP 13–18; TEMP 36.4–37; O2SAT 94–100; BMI 30.4
[2020-03-29 00:06] LABS: Hemoglobin A1C 7.1 % (4.0-6.0)
--- NOTE | 2020-03-29 01:25 | PC.NURSE ---
pt arrived to floor from ED via wheelchair
[2020-03-29 02:14] LABS: Troponin I < 0.01 ng/ml (0.00-0.034)
[2020-03-29 05:24] LABS: Basophils % 0.6 % (0.1-2.0); Eosinophils # 0.2 K/mm3 (0.0-0.4); Eosinophils % 3.7 % (0.1-12.0); Hematocrit 35.6 % (42.0-52.0); Lymphocytes # 1.8 K/mm3 (0.7-4.5); Lymphocytes % 34.5 % (10-50); Mean Corpuscular HGB Conc 34.6 g/dL (31.8-35.4); Mean Corpuscular Hemoglobin 27.3 pg (27.0-31.2); Mean Platelet Volume 8.2 fl (7.4-10.4); Monocytes # 0.3 K/mm3 (0.1-1.0); Monocytes % 6.2 % (1.7-9.3); Neutrophils # 2.8 K/mm3 (1.8-7.8); Platelet Count 151 K/mm3 (142-424); Red Blood Count 4.51 M/mm3 (4.60-6.20); Red Cell Distribution Width 14.3 % (11.5-17.5); White Blood Count 5.1 K/mm3 (4.8-10.8)
--- NOTE | 2020-03-29 05:25 | PC.NURSE ---
Pt resting in bed. Has denied any pain since arrival to floor. VSS. Lungs clear. Pt remains on RA. Teds to BLE. NS infusing @ 75 ml/hr. Pt has had soup with cheese and crackers. No concerns noted at this time. Will continue to monitor.
[2020-03-29 05:29] LABS: Hemoglobin 12.3 g/dL (14.1-18.0)
[2020-03-29 05:47] LABS: Anion Gap 7.6 mEq/L (5-15); Blood Urea Nitrogen 18 mg/dl (9-20); Calcium 8.8 mg/dl (8.4-10.2); Carbon Dioxide 30 mmol/L (22.0-30.0); Chloride 103 mmol/L (98-107); Chol/HDL Ratio 7.7 (1-3.5); Cholesterol 270 mg/dl (140-200); Creatinine Clearance Estimated 114 mL/min (50-200); Estimated Glomerular Filt Rate 78 ml/min (>60); GFR (African American) 94 ML/MIN (>60); HDL Cholesterol 35 mg/dl (40-60); Magnesium 1.8 mg/dl (1.6-2.3); Potassium 3.6 mmoL/L (3.5-5.1); Sodium 137 mmol/L (136-145); Triglycerides 415 mg/dl (30-150)
[2020-03-29 05:48] LABS: Glucose 162 mg/dl (74-100)
[2020-03-29 05:58] LABS: Direct LDL Cholesterol 141.27 mg/dL (100-129)
[2020-03-29 06:00] LABS: Troponin I < 0.01 ng/ml (0.00-0.034)
[2020-03-29 06:29] LABS: POC Glucose,Bedside 158 (70-110)
--- NOTE | 2020-03-29 08:35 | HMH.HPDC ---
General - General Admission date:: 03/29/20 Discharge date: 03/29/20 *Admission Date: 03/28/20 *Chief complaint: Chest pain *History of present illness: 54-year-old male with history of coronary disease, status post bypass 3 years ago, as well as diabetes and hyperlipidemia who presented to the emergency department with chest pain. He reports that he was at home yesterday and sitting in the kitchen when he began to have a sharp knifelike pain in his left chest. Because of his previous history he became concerned and came to the emergency department. In the emergency department initial troponins and EKGs were negative/unchanged from prior respectively but he was admitted for overnight observation and serial enzymes because of his significant history and risk factors. [facility] History I have reviewed the patient's past medical history: Yes Medical History: Reports:: Atherosclerotic Heart Disease, Congestive Heart Failure, Coronary Artery Disease, Diabetes Mellitus Type 2, Gastroesophageal Reflux Disease(GERD), Hyperlipidemia, Hypertension, Myocardial Infarction Denies:: Cancer, Diabetes Mellitus Type 1, Internal Pacemaker, MRSA, Seizures *Have you ever received a pneumonia vaccine?: No *Have you received a flu vaccine this season?: No Other Medical History: Reports: Cataracts, Other Other Surgeries: Yes: CABG, Cardiac Catheterization, Cardiac Surgery, Coronary Stent. No: Pacemaker Amputation: No Fractures: No - *Social History Last grade of school completed: 4th or less Smoking Status: Former smoker Tobacco Type: cigarettes #Yrs smoked (if former smoker): 44 Alcohol Intake: former Alcohol Intake Frequency:: 3 or more drinks per day *Occupational Status:: retired Household Members: spouse *Travel in the last 8 weeks: None Family Hx:: Diabetes, Heart Attack, Hyperlipidemia, Hypertension Review of Systems - Review of Systems Review of systems:: pertinent systems reviewed and negative unless documented below - *Neurologic Denies headache(s), Denies seizure-like activity Exam Vital signs and Labs for Last 24 Hours: Temp Pulse Resp BP Pulse Ox 98.2 F 80 18 133/71 97 03/29/20 07:28 03/29/20 07:28 03/29/20 07:28 03/29/20 07:28 03/29/20 07:28 Laboratory Results - last 24 hr 03/28/20 22:15: WBC 6.1, RBC 5.07, Hgb 13.8 L, Hct 40.0 L, MCV 78.8 L, MCH 27.2, MCHC 34.5, RDW 14.2, Plt Count 176, MPV 7.7, Neut % (Auto) 60.6, Lymph % (Auto) 29.6, [place] % (Auto) 6.3, Eos % (Auto) 3.0, Baso % (Auto) 0.6, Neut # (Auto) 3.7, Lymph # (Auto) 1.8, [place] # (Auto) 0.4, Eos # (Auto) 0.2, Baso # (Auto) 0.0 03/28/20 22:15: Sodium 137, Potassium 4.1, Chloride 100, Carbon Dioxide 32 H, Anion Gap 9.1, BUN 20, Creatinine 1.20, Estimated Creat Clear 98, Estimated GFR 63, Est GFR ( Amer) 76, Glucose 215 H, Calcium 9.4, Total Bilirubin 0.7, Direct Bilirubin 0.2, Conjugated Bilirubin 0.0, Indirect Bilirubin 0.5, Unconjugated Bilirubin 0.5, AST 43, ALT 30, Alkaline Phosphatase 64, Troponin I < 0.01, Total Protein 7.4, Albumin 4.4 03/28/20 22:15: SARS-CoV-2 IgG Ab (Rapid) Negative, SARS-CoV-2 IgM Ab (Rapid) Negative 03/28/20 22:15: Hemoglobin A1c 7.1 H 03/29/20 01:40: Troponin I < 0.01 03/29/20 05:05: WBC 5.1, RBC 4.51 L, Hgb 12.3 L D, Hct 35.6 L, MCV 79.0 L, MCH 27.3, MCHC 34.6, RDW 14.3, Plt Count 151, MPV 8.2, Neut % (Auto) 55.0, Lymph % (Auto) 34.5, [place] % (Auto) 6.2, Eos % (Auto) 3.7, Baso % (Auto) 0.6, Neut # (Auto) 2.8, Lymph # (Auto) 1.8, [place] # (Auto) 0.3, Eos # (Auto) 0.2, Baso # (Auto) 0.0 03/29/20 05:05: Sodium 137, Potassium 3.6, Chloride 103, Carbon Dioxide 30, Anion Gap 7.6, BUN 18, Creatinine 1.00, Estimated Creat Clear 114, Estimated GFR 78, Est GFR ( Amer) 94 D, Glucose 162 H D, Calcium 8.8, Magnesium 1.8, Troponin I < 0.01, Triglycerides 415 H, Cholesterol 270 H, LDL Cholesterol Direct 141.27 H, HDL Cholesterol 35 L, Cholesterol/HDL Ratio 7.7 H 03/29/20 06:07: POC Glucose 158 H I & O for Last 24 hours: Intake & Output
[2020-05-05 12:55] LABS: POC Glucose,Bedside 196 (70-110)
== END 2020-03-29 09:10 | disposition home or self-care (01) ==
LOC: ER 23:39 → 2ND 03-29 01:31
PROVIDERS: Admitting Provider Emergency Medicine; Emergency Provider Emergency Medicine; PCP Internal Medicine Adolescent Medicine; Visit Provider Internal Medicine Adolescent Medicine
DX: R07.9 Chest pain, unspecified (principal); I25.10 Atherosclerotic heart disease of native coronary artery without angina pectoris; I11.0 Hypertensive heart disease with heart failure; I50.9 Heart failure, unspecified; E78.5 Hyperlipidemia, unspecified; Z95.1 Presence of aortocoronary bypass graft; Z95.5 Presence of coronary angioplasty implant and graft; I25.2 Old myocardial infarction; Z79.4 Long term (current) use of insulin; Z79.82 Long term (current) use of aspirin; Z79.899 Other long term (current) drug therapy
CPT/HCPCS: 36415; 71045; 80048; 80061; 80076; 82962; 83036; 83735; 84484; 85025; 86328; 93005; 96365; 96375; 99284; G0378; J2405

== ENCOUNTER → 2020-04-20 06:23 | Outpatient (CLI) | payer MEDICARE, OTHER, SELFPAY ==
--- NOTE | 2020-04-20 06:26 | CA_ITS ---
APPROVED REPORT EXAM: Comprehensive 2D, Doppler, and color-flow Echocardiogram Yarder Engineer: Emily Field RVT Ht: 5 ft 10 in Wt: 211lbs BSA: 2.14 BP: 161/84 mmHg Indications: CP,FATIGUE,CABG,CAD,HTN,HLD 2D Dimensions LVOT 1.84 cm (M/F) 1.5-2.5 M-Mode Dimensions RVDd 3.30 cm (0.9-2.6) LA Diam 4.50 cm (1.9-4.0) LVDd 5.75 cm (3.5-5.7) Ao Diam 3.25 cm (2.0-3.7) LVDs 4.31 cm (3.5-5.7) IVSd 0.86 cm (0.6-1.1) PWd 0.96 cm (0.6-1.1) EF (Teich) 48.90% FS 25.00% EDV (Teich) 163.30 mL ESV (Teich) 83.50 mL LV Diastology E Decel Time 150.00 (160-240 msec) E/A Ratio 1.0 MED E' 6.00 (< 7 cm/sec) E'/MED E' Ratio 16.12 (>14) LAT E' 7.50 (<10 cm/sec) E/LAT E' Ratio 12.89 (>14) Mitral Valve MV E Max Jesús. 97.00 (40-130 cm/s) MV A Velocity 100.00 (40-130 cm/s) E/A Ratio 0.97 MV Decel. Time 150.00 (160-240 ms) MV PHT 44.00 ms Pulmonary Valve PV Peak Velocity 86.00 (50-150 cm/s) Tricuspid Valve TR P. Velocity 276.00 cm/s RAP Estimate 10.00 mmHg RVSP 40.40 mmHg Left Ventricle Left atrium is mildly enlarged, left ventricle is normal size, mild concentric left ventricular hypertrophy, visually estimated ejection fraction 45 to 50% with no obvious regional wall motion abnormality, endocardial surfaces are poorly visualized. Grade 1 diastolic dysfunction seen with tissue Doppler evidence of raise left atrial pressure. Right Ventricle Right atrium and right ventricle are normal size and contractility. Aortic Valve Aortic valve is thickened and calcified, Doppler is not indicated above aortic stenosis or significant aortic insufficiency. Mitral Valve Mitral valve leaflets are minimally thickened, there is no mitral stenosis, there is mild mitral regurgitation. Tricuspid Valve Tricuspid valve is grossly normal, there is mild tricuspid regurgitation, tricuspid regurgitation jet velocity is inadequate for calculation of the right ventricular systolic pressure. Pulmonic Valve Pulmonic valve is poorly visualized. Great Vessels Aortic root is normal size. Pericardium No significant pericardial effusion noted. Conclusion 1. Mildly enlarged left atrium, normal left ventricular size, mild concentric left ventricular hypertrophy, visually estimated ejection fraction 45 to 50% with no regional wall motion abnormality, grade 1 diastolic dysfunction seen with tissue Doppler evidence of raise left atrial pressure. 2. Thickened and calcified aortic valve without Doppler evidence of aortic stenosis or aortic insufficiency. 3. Mild mitral and tricuspid regurgitation. 4. No significant pericardial effusion noted. Electronically signed by : Adrián Newberry, 04/20/2020 11:01:58
--- NOTE | 2020-04-20 06:26 | CA_ITS ---
APPROVED REPORT Exam: Pharmacologic Technologist: Willa Lundberg Ht: 5 ft 10 in Wt: 211 lbs BSA: 2.14 m2 HR: 81 bpm BP: 175/97 mmHg Indications: Chest pain, CABG Medical History Medications: Amlodipine,,,,, Lisinopril,,,,, Aspirin,,,,, Metformin,,,,, Gabapentin,,,,, Carvedilol,,,,, INSULIN,,,,, NiACIN,,,,, Sertraline,,,,, DulaGLUTIDE,,,,, SeMaglutide,,,,, Pitavastatin,,,,, Stress Test Details Test: LEXISCAN HR Resting HR: 87 bpm Max Heart Rate (APMHR): 165 bpm Max HR Achieved: 104 bpm Target HR (85% APMHR): 140 bpm % of APMHR: 63 Recovery HR: 88 bpm BP Resting BP: 175.0/97.0 mmHg Max BP: 175.0/97.0 mmHg Recovery BP: 163.0/85.0 mmHg ECG Resting ECG: Sinus rhythm, abnormal ekg Clinical Exercise duration: 04:01 min Highest Stage Achieved: Exercise capacity: 1.0 METs Stress ECG Conclusion Lexiscan portion completed. Patient did not have symptoms during peak infusion. Symptoms: No chest pain. No shortness of breath during peak infusion. Arrhythmias/Ectopy: No ectopy. ST-T Changes: Greater than 1.[address] depression. Conclusion: Images to follow. Electronically signed by : Adrián Newberry, 04/21/2020 06:14:16
--- NOTE | 2020-04-20 06:26 | NM_ITS ---
APPROVED REPORT Exam: Nuclear Stress Test Indication: Chest pain, CAD, CABG, HTN, DM, High cholesterol, Family history Patient Location: Outpatient Stress Tech: Willa Lundberg HI Tech:Waleska Sanabria, ARRT, RT (R)(N) Ht: 5 ft 9 in Wt: 212 lbs HR: 81 bpm BP: 175/97 mmHg BSA: 2.12 m2 BMI: 31.3 History: Chest pain, CAD, CABG, HTN, DM, High cholesterol, Family history Procedure: Patient received a 0.4 mg of intravenous Lexiscan, resting heart rate 81 bpm, resting blood pressure 175/97 mmHg, with Lexiscan maximum heart rate achived was 101 bpm which is Less than 85 % of the maximum predicted heart rate and blood pressure was 169/87 mmHg. With Lexiscan, patient denied any complaint of chest pain. Electrocardiogram Resting electrocardiogram showed sinus rhythm, ST-T changes consistent with strain pattern, less than 1.[address] segment depression noted from the baseline EKG. The EKG portion of the Lexiscan is nondiagnostic. Cardiac Stress and Resting SPECT Images: Cardiac Stress and Resting SPECT images were obtained using technetium 99m Myoview 32.7 mCi stress and 9.95 mCi at rest. Gated SPECT for analysis of segmental wall motion and calculation of the ejection fraction also done, prone images were also obtained. Cardiac stress and resting SPECT images show a moderate sized area of fixed defect involving the inferior, posterior basal, and apical wall in a fixed pattern consistent with area of myocardial scarring without significant ulises-infarct ischemia. Computer derived ejection fraction is 37% with marked inferior, posterior basal and apical wall hypokinesis. Right ventricle is normal size and contractility. Conclusion: 1. The EKG portion of the Lexiscan is nondiagnostic. 2. No scintigraphic evidence of reversible ischemia seen, a fixed defect involving the inferior, posterior basal and apical wall is consistent with myocardial scarring. Computer derived ejection fraction 37% with segmental wall motion abnormality described above, right ventricle is normal size and contractility. 3. Abnormal Lexiscan Myoview study. Electronically signed by : Adrián Newberry, 04/21/2020 06:25:23
--- NOTE | 2020-04-20 08:20 | HMH.ITSHM ---
Current Home Medications as stated by this patient Chriss Hernandez or order entry representative. []SERTRALINE NIACIN METFORMIN LISINOPIRL INSULIN GABAPENTIN CARVEDILOL SEMAGLUTIDE PITAVASTATIN DULAGLUTIDE ASA AMLODIPINE
== END ==
PROVIDERS: PCP Nurse Practitioner Family; Visit Provider Urology
DX: E78.5 Hyperlipidemia, unspecified (principal); I10 Essential (primary) hypertension; R53.83 Other fatigue; Z95.1 Presence of aortocoronary bypass graft; I20.8 Other forms of angina pectoris; R94.31 Abnormal electrocardiogram [ECG] [EKG]
CPT/HCPCS: 78452; 93017; 93306; A9502; J2785

== ENCOUNTER → 2020-06-23 10:25 | Outpatient (CLI) | payer MEDICARE, OTHER, SELFPAY ==
--- NOTE | 2020-06-23 10:26 | CA_ITS ---
APPROVED REPORT EXAM: Limited 2D Echocardiogram Data Governance Consultant: Emily Field RVT Ht: 5 ft 10 in Wt: 215lbs BSA: 2.15 BP: 140/90 mmHg Indications: CM,EF CHECK EF 45-50% ON 04/20/20,CAD,CABG,EDEMA,EX SMOKER 2D Dimensions LVOT 1.20 cm (M/F) 1.5-2.5 M-Mode Dimensions RVDd 2.89 cm (0.9-2.6) LA Diam 4.15 cm (1.9-4.0) LVDd 6.16 cm (3.5-5.7) Ao Diam 3.13 cm (2.0-3.7) LVDs 4.72 cm (3.5-5.7) IVSd 1.02 cm (0.6-1.1) PWd 1.19 cm (0.6-1.1) EF (Teich) 45.90% FS 23.40% EDV (Teich) 191.10 mL ESV (Teich) 103.40 mL Conclusion 1. Limited study was performed to evaluate left ventricular systolic function, left ventricle is normal size, mild concentric left ventricular hypertrophy, visually estimated ejection fraction approximately 45%, there appears to be moderate hypokinesis involving the inferolateral and posterolateral wall. 2. No significant pericardial effusion noted. Electronically signed by : Adrián Newberry, 06/23/2020 20:03:11
== END ==
PROVIDERS: PCP Nurse Practitioner Family; Visit Provider Urology
DX: I25.810 Atherosclerosis of coronary artery bypass graft(s) without angina pectoris (principal); I25.5 Ischemic cardiomyopathy; R94.39 Abnormal result of other cardiovascular function study; E78.2 Mixed hyperlipidemia; E11.69 Type 2 diabetes mellitus with other specified complication; Z95.1 Presence of aortocoronary bypass graft; Z79.4 Long term (current) use of insulin
CPT/HCPCS: 93308

== ENCOUNTER → 2020-07-03 09:01 | Outpatient (CLI) | payer MEDICARE, OTHER, SELFPAY ==
[2020-07-03 10:01] LABS: Alanine Aminotransferase 25 U/L (12-78); Albumin Level 3.7 g/dl (3.5-5.0); Albumin/Globulin Ratio 1.5 (1.1-1.8); Alkaline Phosphatase 58 U/L (38-126); Anion Gap 9.1 mEq/L (5-15); Aspartate Amino Transferase 31 U/L (17-59); Bilirubin,Total 0.4 mg/dl (0.2-1.3); Blood Urea Nitrogen 17 mg/dl (9-20); Calcium 8.8 mg/dl (8.4-10.2); Carbon Dioxide 28 mmol/L (22.0-30.0); Chloride 104 mmol/L (98-107); Estimated Glomerular Filt Rate 87 ml/min (>60); GFR (African American) 106 ML/MIN (>60); Globulin 2.5 g/dL (1.3-3.2); Glucose 228 mg/dl (74-100); HDL Cholesterol 47 mg/dl (40-60); Potassium 4.1 mmoL/L (3.5-5.1); Sodium 137 mmol/L (136-145); Total Protein,Serum 6.2 g/dl (6.3-8.2); Triglycerides 370 mg/dl (30-150); VLDL Cholesterol 74 mg/dL (0-40)
[2020-07-03 10:12] LABS: Direct LDL Cholesterol 174.67 mg/dL (100-129)
[2020-07-03 10:17] LABS: Chol/HDL Ratio 7.6 (1-3.5); Cholesterol 359 mg/dl (140-200)
[2020-07-03 11:15] LABS: Hemoglobin A1C 7.6 % (4.0-6.0)
== END ==
PROVIDERS: Visit Provider Nurse Practitioner Family
DX: E11.59 Type 2 diabetes mellitus with other circulatory complications (principal); I25.10 Atherosclerotic heart disease of native coronary artery without angina pectoris; I10 Essential (primary) hypertension
CPT/HCPCS: 36415; 80053; 80061; 83036

== ENCOUNTER 2020-12-12 15:43 | Emergency (ER) | payer MEDICARE, OTHER, SELFPAY ==
[2020-12-12 15:44] VITALS: BP 186/92; PULSE 94; RESP 20; TEMP 39.1; O2SAT 94; BMI 35.5
--- NOTE | 2020-12-12 16:09 | HMH.EDGENADL ---
ED Disposition Clinical Impression: COVID-19 Chest pain Qualifiers: Chest pain type: unspecified Qualified Code(s): R07.9 - Chest pain, unspecified Disposition: Home, Self-Care Condition on Discharge: Good Referrals: Provider,Referral, [Primary Care Provider] - - Critical Care Critical Care Time: No Attestation: On 12/12/20, the high probability of a clinically significant, sudden or life threatening deterioration of the following system(s) required my full and direct attention, intervention and personal management. The time I documented below is in addition to time spent performing reported procedures but includes the following listed in this critical care notation. Medical Decision Making - Medical Records Medical records reviewed: Yes: I reviewed the patient's medical records. - Jose Manuel Inquiry Pt receiving controlled substance: No Vital Signs: 12/12/20 15:44 Temperature 102.3 F H Temperature Source Oral Pulse Rate [Left Radial] 94 H Respiratory Rate 20 Blood Pressure [Right Arm] 186/92 H Blood Pressure Mean [Right Arm] 123 Blood Pressure Source [Right Arm] Automatic Cuff Blood Pressure Position [Right Arm] Sitting 02 Sat by Pulse Oximetry 94 L Oxygen Delivery Method Room Air - Lab Data Lab Results 12/12/20 15:48: WBC 3.9 L, RBC 4.63, Hgb 12.6 L, Hct 38.1 L, MCV 82.3, MCH 27.2, MCHC 33.1, RDW 14.0, Plt Count 111 L, MPV 8.1, Neut % (Auto) 75.6, Lymph % (Auto) 16.7, [place] % (Auto) 6.6, Eos % (Auto) 0.7, Baso % (Auto) 0.4, Neut # (Auto) 2.9, Lymph # (Auto) 0.7, [place] # (Auto) 0.3, Eos # (Auto) 0.0, Baso # (Auto) 0.0 12/12/20 15:48: Sodium 133 L, Potassium 4.0, Chloride 99, Carbon Dioxide 28, Anion Gap 10.0, BUN 15, Creatinine 1.10, Estimated Creat Clear 106, Estimated GFR 69, Est GFR ( Amer) 84, Glucose 188 H, Calcium 8.2 L, Troponin I < 0.01 Result diagrams: 12/12/20 15:48 12/12/20 15:48 Orders (Tests/Meds): ORDERS Category Date Time Status Troponin I Q3H Lab 12/12/20 19:15 Ordered Troponin I Q3H Lab 12/12/20 22:15 Ordered Medical Decision Narrative: Patient is a 55-year-old male presents the ED today for chest pain and COVID-19 infection. Patient is well-appearing on initial evaluation, ambulatory in the emergency department without significant tachypnea or shortness of breath. Differential diagnosis includes pneumonia, pneumothorax, myocarditis, ACS. EKG obtained shortly after arrival, normal sinus rhythm, rate 96, no evidence of ST elevation although patient does have some elevated T waves in V2 V3 no ST change. Patient reassessed, on my entering the room, he is taking his stickers off, states that he wishes to leave. Patient's chest x-ray with atypical viral pattern no focal consolidation, no evidence of bacterial pneumonia. Patient's respirations have been stable, able to ambulate and able to tolerate p.o. Patient initial troponin is less than 0.01, however I wished to obtain a 3-hour troponin given that patient is having chest pain, and is at relatively high risk having had a 5 vessel bypass in the past. Explained to the patient we are unable to tell if he is having cardiac oriented pain without a 2nd troponin test, patient does need his not wish to stay for this test, and that he wants to go home. Expressed to the patient that if we will obtain this test we may miss critical medical diagnosis, patient is okay with this eventuality, understands this risk, and still wishes to go home. Stressed the patient that he should come back to the ED should he continued to have worsening shortness of breath, chest pain, severe nausea or vomiting, dizziness, or feeling as though he is going to pass out, but other symptoms and he has verbalized understanding with this plan. General Adult HPI - General Stated complaint: CP Time Seen by Provider: 12/12/20 15:55 - History of Present Illness HPI narrative: Patient presents the ED today for further evaluation of chest pain. Patient
--- NOTE | 2020-12-12 16:10 | ECG_ITS ---
APPROVED REPORT Exam: Resting ECG HR:96 bpm ECG Measurements Heart Rate 96 AXES MA 142 P 60 QRSd 98 QRS -23 QT 340 T 106 QTc 429 Conclusion Normal sinus rhythm Possible Left atrial enlargement Inferior infarct, age undetermined Abnormal ECG Electronically signed by : Brian Mohr MD 12/13/2020 16:02:46
--- NOTE | 2020-12-12 16:10 | XR_ITS ---
PROCEDURE INFORMATION: Exam: XR Chest Exam date and time: 12/12/2020 4:10 PM Age: 55 years old Clinical indication: Cough and shortness of breath; Prior surgery; Surgery date: 6+ months; Patient HX: Chest pain, cough , fever covid test was positive TECHNIQUE: Imaging protocol: XR of the chest. Views: 1 view. COMPARISON: CR XR CHEST PORTABLE 03/28/2020 10:26 PM FINDINGS: Lungs: Diffuse interstitial prominence. No focal consolidation. Pleural spaces: Unremarkable. No pleural effusion. No pneumothorax. Heart/Mediastinum: Mild cardiac enlargement. Postsurgical changes noted. Bones/joints: Unremarkable. IMPRESSION: Moderate interstitial prominence. Differential includes edema and atypical infection.
[2020-12-12 16:17] LABS: Basophils % 0.4 % (0.1-2.0); Eosinophils % 0.7 % (0.1-12.0); Hematocrit 38.1 % (42.0-52.0); Hemoglobin 12.6 g/dL (14.1-18.0); Lymphocytes # 0.7 K/mm3 (0.7-4.5); Lymphocytes % 16.7 % (10-50); Mean Corpuscular HGB Conc 33.1 g/dL (31.8-35.4); Mean Corpuscular Hemoglobin 27.2 pg (27.0-31.2); Mean Corpuscular Volume 82.3 fl (80-94); Mean Platelet Volume 8.1 fl (7.4-10.4); Monocytes # 0.3 K/mm3 (0.1-1.0); Monocytes % 6.6 % (1.7-9.3); Neutrophils # 2.9 K/mm3 (1.8-7.8); Neutrophils % 75.6 % (37.0-80.0); Platelet Count 111 K/mm3 (142-424); Red Blood Count 4.63 M/mm3 (4.60-6.20); White Blood Count 3.9 K/mm3 (4.8-10.8)
[2020-12-12 16:18] LABS: Chloride 99 mmol/L (98-107); Sodium 133 mmol/L (136-145)
[2020-12-12 16:22] LABS: Blood Urea Nitrogen 15 mg/dl (9-20); Calcium 8.2 mg/dl (8.4-10.2); Carbon Dioxide 28 mmol/L (22.0-30.0); Creatinine Clearance Estimated 106 mL/min (50-200); Estimated Glomerular Filt Rate 69 ml/min (>60); GFR (African American) 84 ML/MIN (>60); Glucose 188 mg/dl (74-100)
[2020-12-12 16:31] VITALS: BP 152/80; PULSE 94; RESP 20
[2020-12-12 16:35] LABS: Troponin I < 0.01 ng/ml (0.00-0.034)
[2020-12-12 17:01] VITALS: BP 159/66; PULSE 89; RESP 16
[2020-12-12 17:31] VITALS: BP 162/84; PULSE 90; RESP 19
[2020-12-12 18:01] VITALS: BP 168/87; PULSE 90; RESP 17; O2SAT 97
[2020-12-12 18:45] VITALS: BP 168/87; PULSE 90; RESP 17; TEMP 37.9; O2SAT 97
--- NOTE | 2020-12-12 18:47 | PC.NURSE ---
Pt states he knows he isnt having heart attack, it is the covid
== END 2020-12-12 18:48 | disposition home or self-care (01) ==
PROVIDERS: Emergency Provider Student in an Organized Health Care Education/Training Program
DX: U07.1 COVID-19 (principal); E11.9 Type 2 diabetes mellitus without complications; I25.10 Atherosclerotic heart disease of native coronary artery without angina pectoris; I50.9 Heart failure, unspecified; E78.5 Hyperlipidemia, unspecified; I10 Essential (primary) hypertension; I25.2 Old myocardial infarction; Z87.891 Personal history of nicotine dependence; Z79.899 Other long term (current) drug therapy
CPT/HCPCS: 71045; 80048; 84484; 85025; 93005; 99282

== ENCOUNTER 2020-12-14 01:31 | Inpatient (IN) | payer MEDICARE, OTHER, SELFPAY ==
[2020-12-14] VITALS (10 sets, daily range): BP systolic 170–200; BP diastolic 86–102; PULSE 80–118; RESP 16–28; TEMP 36.5–37.7; O2SAT 84–100; BMI 34.9; BMI 35.1; BMI 35.2
[2020-12-14 01:51] LABS: Influenza A, PCR Not Detected (NotDetected); Influenza B, PCR Not Detected (NotDetected)
--- NOTE | 2020-12-14 01:58 | CT_ITS ---
PROCEDURE INFORMATION: Exam: CTA Chest With Contrast Exam date and time: 12/14/2020 1:58 AM Age: 55 years old Clinical indication: Cough and fever and shortness of breath; Prior surgery; Surgery date: 6+ months; Surgery type: Open heart surgery; Additional info: Shortness of air fever cough abnormal cxr TECHNIQUE: Imaging protocol: Computed tomographic angiography of the chest with contrast. 3D rendering (Not supervised by radiologist): MIP and/or 3D reconstructed images were created by the technologist. Radiation optimization: All CT scans at this facility use at least one of these dose optimization techniques: automated exposure control; mA and/or kV adjustment per patient size (includes targeted exams where dose is matched to clinical indication); or iterative reconstruction. Contrast material: ISOVUE 370; Contrast volume: 70 ml; Contrast route: INTRAVENOUS (IV); COMPARISON: CR XR CHEST 2V 12/14/2020 3:11 AM FINDINGS: Pulmonary arteries: The pulmonary trunk, main, and branch pulmonary arteries contain no filling defects. Aorta: Minimal atheromatous calcification identified. No aortic aneurysm. No aortic dissection. Lungs: There are extensive amorphous infiltrates identified throughout both lung elizabeth. Many of the infiltrates have a peripheral distribution. There may be mild predilection for mid and lower lung zones. Findings are compatible with viral interstitial pneumonitis such as could be caused by Covid19. Pleural spaces: Moderate bilateral pleural effusions identified. No evidence of pneumothorax. Heart: Heart size is normal. There are changes of median sternotomy and coronary artery bypass surgery. Heart RV/LV ratio: Within normal limits. Coronary arteries: Bilateral coronary artery calcifications identified. Mediastinal space: No evidence of mediastinal or hilar mass. Lymph nodes: Visible unenlarged station 4 lymph nodes identified. Bones/joints: Unremarkable. No acute fracture. Soft tissues: Unremarkable. IMPRESSION: 1. No evidence of main or branch pulmonary embolism. 2. Extensive amorphous infiltrates throughout both lung elizabeth, compatible with viral interstitial pneumonitis including pneumonitis caused by Covid 19. 3. This patient is status post median sternotomy and coronary artery bypass surgery. No evidence of pulmonary volume overload.
--- NOTE | 2020-12-14 01:58 | XR_ITS ---
PROCEDURE INFORMATION: Exam: XR Chest Exam date and time: 12/14/2020 1:58 AM Age: 55 years old Clinical indication: Cough and shortness of breath; Additional info: Shortness of air cough fever TECHNIQUE: Imaging protocol: XR of the chest. Views: 2 views. COMPARISON: CR XR CHEST PORTABLE 12/12/2020 4:28 PM FINDINGS: Lungs: Worsening extensive interstitial infiltrates since prior examination of 12/12/2020. No evidence of pulmonary volume overload. Pleural spaces: There is blunting of posterior costophrenic angles compatible with small to moderate bilateral pleural effusions. No evidence of pneumothorax. Heart/Mediastinum: There is mild and stable cardiomegaly. This patient is status post median sternotomy and coronary artery bypass surgery. Bones/joints: Unremarkable. IMPRESSION: Worsening interstitial infiltrates since 12/12/2020. Progress examination is suggested.
--- NOTE | 2020-12-14 01:58 | ECG_ITS ---
APPROVED REPORT Exam: Resting ECG HR:103 bpm ECG Measurements Heart Rate 103 AXES MS 142 P 63 QRSd 100 QRS 60 QT 336 T 28 QTc 440 Conclusion Sinus tachycardia Old inferior changes Abnormal ECG Electronically signed by : Brian Mohr MD 12/14/2020 18:07:37
[2020-12-14 02:24] LABS: Coronavirus 19, PCR Detected (NotDetected)
[2020-12-14 02:40] LABS: Basophils % 0.2 % (0.1-2.0); Eosinophils % 0.6 % (0.1-12.0); Hematocrit 36.4 % (42.0-52.0); Hemoglobin 12.6 g/dL (14.1-18.0); Lymphocytes # 0.6 K/mm3 (0.7-4.5); Lymphocytes % 12.1 % (10-50); Mean Corpuscular HGB Conc 34.7 g/dL (31.8-35.4); Mean Corpuscular Hemoglobin 28.3 pg (27.0-31.2); Mean Corpuscular Volume 81.7 fl (80-94); Mean Platelet Volume 9.2 fl (7.4-10.4); Monocytes # 0.4 K/mm3 (0.1-1.0); Neutrophils # 3.7 K/mm3 (1.8-7.8); Platelet Count 103 K/mm3 (142-424); Red Blood Count 4.45 M/mm3 (4.60-6.20); Red Cell Distribution Width 13.8 % (11.5-17.5); White Blood Count 4.7 K/mm3 (4.8-10.8)
[2020-12-14 02:47] LABS: Chloride 95 mmol/L (98-107); Potassium 4.6 mmoL/L (3.5-5.1); Sodium 130 mmol/L (136-145)
[2020-12-14 02:49] LABS: Alanine Aminotransferase 31 U/L (12-78); Alkaline Phosphatase 59 U/L (38-126); Aspartate Amino Transferase 60 U/L (17-59); Bilirubin,Total 0.9 mg/dl (0.2-1.3); Blood Urea Nitrogen 20 mg/dl (9-20); Creatinine Clearance Estimated 121 mL/min (50-200); Estimated Glomerular Filt Rate 69 ml/min (>60); GFR (African American) 84 ML/MIN (>60)
[2020-12-14 02:50] LABS: Albumin Level 3.5 g/dl (3.5-5.0); Albumin/Globulin Ratio 1.1 (1.1-1.8); Anion Gap 11.6 mEq/L (5-15); Calcium 8.2 mg/dl (8.4-10.2); Carbon Dioxide 28 mmol/L (22.0-30.0); Globulin 3.3 g/dL (1.3-3.2); Glucose 167 mg/dl (74-100); Total Protein,Serum 6.8 g/dl (6.3-8.2)
[2020-12-14 02:59] LABS: NT Pro Brain Natriuretic Pep. 4420 pg/mL (0-125)
[2020-12-14 03:00] LABS: Lactic Acid 1.4 mmol/L (0.7-2.1)
[2020-12-14 03:03] LABS: Troponin I 0.02 ng/ml (0.00-0.034)
[2020-12-14 03:08] LABS: T4 (Thyroxine) 6.1 ug/dl (5.53-11.0)
[2020-12-14 03:21] LABS: Thyroid Stimulating Hormone 1.12 uIU/mL (0.465-4.68)
[2020-12-14 03:37] LABS: C-Reactive Protein 143.9 mg/L (0-4)
[2020-12-14 03:56] LABS: Erythrocyte Sedimentation Rate 79 mm/hr (0-20)
--- NOTE | 2020-12-14 04:29 | PC.NURSE ---
phone call to respiratory for inhaler
--- NOTE | 2020-12-14 04:52 | HMH.EDSOB ---
ED Disposition Clinical Impression: COVID-19 with pulmonary comorbidity, Acute respiratory failure due to COVID-19, S/P CABG (coronary artery bypass graft), Obesity (BMI 30-39.9) Diabetes mellitus Qualifiers: Diabetes mellitus type: type 2 Diabetes mellitus terminal manager insulin use: unspecified terminal manager insulin use status Diabetes mellitus complication status: with other specified complication Qualified Code(s): E11.69 - Type 2 diabetes mellitus with other specified complication Disposition: Admitted As Inpatient Condition on Discharge: Serious - Critical Care Critical Care Time: No Attestation: On 12/14/20, the high probability of a clinically significant, sudden or life threatening deterioration of the following system(s) required my full and direct attention, intervention and personal management. The time I documented below is in addition to time spent performing reported procedures but includes the following listed in this critical care notation. Medical Decision Making - Medical Records Medical records reviewed: Yes: I reviewed the patient's medical records. - Jose Manuel Inquiry Pt receiving controlled substance: No Vital Signs: 12/14/20 01:52 12/14/20 05:01 Temperature 99.9 F H Temperature Source Oral Pulse Rate 87 Pulse Rate [Right Brachial] 118 H Respiratory Rate 28 H Blood Pressure 172/87 H Blood Pressure [Right Arm] 200/102 H Blood Pressure Mean [Right Arm] 134 Blood Pressure Source [Right Arm] Automatic Cuff Blood Pressure Position [Right Arm] Sitting 02 Sat by Pulse Oximetry 84 L 94 L Oxygen Delivery Method Room Air - Lab Data Lab results reviewed: Yes: I reviewed the patient's lab results. Lab Results 12/14/20 01:45: SARS-CoV-2 (PCR) Detected A, Influenza A Untype (PCR) Not detected, Influenza Type B (PCR) Not detected 12/14/20 02:32: WBC 4.7 L, RBC 4.45 L, Hgb 12.6 L, Hct 36.4 L, MCV 81.7, MCH 28.3, MCHC 34.7, RDW 13.8, Plt Count 103 L, MPV 9.2, Neut % (Auto) 78.0, Lymph % (Auto) 12.1, [place] % (Auto) 9.0, Eos % (Auto) 0.6, Baso % (Auto) 0.2, Neut # (Auto) 3.7, Lymph # (Auto) 0.6 L, [place] # (Auto) 0.4, Eos # (Auto) 0.0, Baso # (Auto) 0.0 12/14/20 02:32: Sodium 130 L, Potassium 4.6, Chloride 95 L, Carbon Dioxide 28, Anion Gap 11.6, BUN 20 D, Creatinine 1.10, Estimated Creat Clear 121, Estimated GFR 69, Est GFR ( Amer) 84, Glucose 167 H, Calcium 8.2 L, Total Bilirubin 0.9, AST 60 H, ALT 31, Alkaline Phosphatase 59, Troponin I 0.02, Total Protein 6.8, Albumin 3.5, Globulin 3.3 H, Albumin/Globulin Ratio 1.1, TSH 1.12, Thyroxine (T4) 6.1 12/14/20 02:32: Lactate 1.4 12/14/20 02:32: NT-Pro-B Natriuret Pep 4420 H 12/14/20 02:32: ESR 79 H 12/14/20 02:32: C-Reactive Protein 143.9 H 12/14/20 02:32: Ferritin 416 Result diagrams: 12/14/20 02:32 12/14/20 02:32 Orders (Tests/Meds): ED MEDICATIONS Generic Name Dose Route Start Last Admin Trade Name Freq PRN Reason Stop Dose Admin Albuterol Sulfate 2 puffs 12/14/20 04:31 12/14/20 04:47 Albuterol-Hfa 90mcg/Puff Inhaler 8gm IH 01/13/21 04:30 2 puffs Q6HP PRN Administration Shortness Of Breath Sodium Chloride 1,000 mls @ 999 mls/hr 12/14/20 02:15 12/14/20 04:31 Sod Chlor 0.9% 1000ml Bag IV 12/14/20 03:15 999 mls/hr .Q1H1M DANNIELLE Administration Discontinued Medications Generic Name Dose Route Start Last Admin Trade Name Freq PRN Reason Stop Dose Admin Dexamethasone Sodium Phosphate 10 mg 12/14/20 02:03 12/14/20 02:21 Dexamethasone 4mg/Ml 5ml Mdv IV 12/14/20 02:04 10 mg ONCE ONE Administration Furosemide 40 mg 12/14/20 04:30 12/14/20 04:30 Furosemide 40mg/4ml Vial IV 12/14/20 04:31 40 mg ONCE ONE Administration Iopamidol 70 ml 12/14/20 04:09 12/14/20 04:11 Iopamidol-370 (76%);100ml Bottle IV 12/14/20 04:10 70 ml ONCE ONE Administration Ketorolac Tromethamine 30 mg 12/14/20 02:03 12/14/20 02:21 Ketorolac 30mg/Ml Vial IV 12/14/20 02:04 30 mg ONCE ONE Administration
--- NOTE | 2020-12-14 05:09 | PC.NURSE ---
pt is an alert & oriented x4 male who presents to ed for complaints of shortness of air,chest tightness cough and fever worsening over the last two days. LUNGS are diminished bilaterally with rhonchi present bilaterally. RR 28. Pt is in obvious distress at time of presentation and placed on oxygen for assist. Initial unsupplemented oxygen saturation is 84%. Pt feels like he has COVID, but hasn't been tested and in fact presented to ed two days ago but was worked up for cp . Pt abd soft, NT/ND. BS + x 4 quads. Last BM was yesterday and normal for him. He states is UOP is normal. Pt with IV SL to left hand and Rt AC. MD states admit to PCP with diagnosis of covid pneumonia and hypoxia . Registration aware. Pt given meds for comfort. Given pillow and blankets and assisted to get comfrtable in bed. SR ^ x2. CB in reach.
[2020-12-14 05:44] LABS: Ferritin 416 ng/ml (17.9-464)
[2020-12-14 06:17] LABS: Troponin I 0.04 ng/ml (0.00-0.034)
--- NOTE | 2020-12-14 08:16 | INFXCTL.NOTE ---
REPORT GIVEN TO ANA MARIA.
--- NOTE | 2020-12-14 08:55 | HMH.PHAINT ---
home medication list verified using list from [facility]
[2020-12-14 10:19] LABS: Troponin I 0.03 ng/ml (0.00-0.034)
--- NOTE | 2020-12-14 11:27 | CA_ITS ---
APPROVED REPORT EXAM: Comprehensive 2D, Doppler, and color-flow Echocardiogram International Relations Teacher: Emily Field RVT Ht: 5 ft 6 in Wt: 224lbs BSA: 2.10 BP: 172/87 mmHg Indications: COVID,CAD,CABG,CHF,GERD,STENT,EF OF 45% ON 06/23/20,SOA,HTN,HLD,EX SMOKER 2D Dimensions LVOT 2.15 cm (M/F) 1.5-2.5 LA Volume 70.00 mL LA Volume Index 33.33 mL/m2 (M/F) 16-34 M-Mode Dimensions RVDd 1.83 cm (0.9-2.6) LA Diam 4.78 cm (1.9-4.0) LVDd 6.08 cm (3.5-5.7) Ao Diam 3.59 cm (2.0-3.7) LVDs 4.52 cm (3.5-5.7) IVSd 1.39 cm (0.6-1.1) PWd 1.21 cm (0.6-1.1) EF (Teich) 49.60% FS 25.70% EDV (Teich) 185.50 mL TAPSE 1.39 (<1.7) ESV (Teich) 93.40 mL LV Diastology E Decel Time 150.00 (160-240 msec) E/A Ratio 1.8 MED E' 6.60 (< 7 cm/sec) E'/MED E' Ratio 21.91 (>14) LAT E' 6.90 (<10 cm/sec) E/LAT E' Ratio 20.96 (>14) Aortic Valve LVOT Max 96.00 (70-110 cm/s) LVOT VTI 21.38 cm AoV Peak Jesús. 179.00 (50-130 cm/s) AO Peak GR. 12.90 mmHg AO Mean GR. 7.10 (<5 mmHg) AO VTI 35.48 (18-25 cm) PAULO (VTI) 2.19 (2.5-4.5 cm2) Mitral Valve MV E Max Jesús. 145.00 (40-130 cm/s) MV A Velocity 82.00 (40-130 cm/s) E/A Ratio 1.75 MV Decel. Time 150.00 (160-240 ms) MV PHT 44.00 ms Pulmonary Valve PV Peak Velocity 91.00 (50-150 cm/s) Tricuspid Valve TR P. Velocity 299.00 cm/s RAP Estimate 10.00 mmHg RVSP 45.90 mmHg Left Ventricle Left atrium is mildly enlarged, left ventricle is mildly dilated, mild concentric left ventricular hypertrophy, visually estimated ejection fraction approximately 45%, there is marked hypokinesis involving the basal septum, inferior and posterior lateral wall, endocardial surfaces are poorly visualized, grade 2 diastolic dysfunction seen with tissue Doppler evidence of raise left atrial pressure. Right Ventricle Right atrium and right ventricle are normal size and contractility. Aortic Valve Aortic valve is thickened and calcified without Doppler evidence of aortic stenosis or aortic insufficiency. Mitral Valve Mitral valve leaflets are minimally thickened, there is no mitral stenosis, there is mild to moderate mitral regurgitation. Tricuspid Valve Tricuspid valve grossly normal, there is mild tricuspid regurgitation, tricuspid regurgitation jet velocity is inadequate for calculation of the right ventricular systolic pressure. Pulmonic Valve Pulmonic valve is minimally thickened there is no pulmonic stenosis or significant pulmonic insufficiency. Great Vessels Aortic root is normal size. Inferior vena cava is not well visualized Pericardium No significant pericardial effusion noted. Conclusion 1. Mildly enlarged left atrium, mildly dilated left ventricle, mild concentric left ventricular hypertrophy, visually estimated ejection fraction 45% with multiple segmental wall motion abnormality described above, grade 2 diastolic dysfunction seen with tissue Doppler evidence of raise left atrial pressure. 2. Mild to moderate mitral and mild tricuspid regurgitation. 3. Thickened and calcified aortic valve without Doppler evidence of aortic stenosis or aortic insufficiency. 4. No significant pericardial effusion noted. Electronically signed by : Adrián Newberry MD 12/15/2020 06:34:31
--- NOTE | 2020-12-14 13:37 | HMH.HP ---
*Admission Date: 12/14/20 *Chief complaint: SOA and chest pain *History of present illness: 55-year-old male who is unvaccinated who over the past 3 to 4 days has had increasing problems with chest pain and shortness of air, came to the emergency department a couple of days ago and apparently was evaluated for cardiac issues and sent home, but became worse, coughing, congestion, lots of issues with dyspnea, came back to the emergency department this morning, found to have COVID-19, infiltrates on chest x-ray and a new oxygen requirement, admitted to hospital for further evaluation. He otherwise feels pretty well, eating well, no diarrhea, no rash. [facility] History I have reviewed the patient's past medical history: Yes Medical History: Reports:: Atherosclerotic Heart Disease, Congestive Heart Failure, Coronary Artery Disease, Diabetes Mellitus Type 2, Gastroesophageal Reflux Disease(GERD), Hyperlipidemia, Hypertension, Myocardial Infarction Denies:: Cancer, Diabetes Mellitus Type 1, Internal Pacemaker, MRSA, Seizures *Have you ever received a pneumonia vaccine?: No *Have you received a flu vaccine this season?: No Other Medical History: Reports: Cataracts, Other Other Surgeries: Yes: CABG, Cardiac Catheterization, Cardiac Surgery, Coronary Stent. No: Pacemaker Amputation: No Fractures: No - *Social History Smoking Status: Former smoker Tobacco Type: cigarettes #Yrs smoked (if former smoker): 44 Alcohol Intake: former Alcohol Intake Frequency:: 3 or more drinks per day Substance Use Type: denies use *Occupational Status:: employed Household Members: spouse *Travel in the last 8 weeks: None Family Hx:: Unable to obtain Review of Systems - Review of Systems Review of systems:: pertinent systems reviewed and negative unless documented below - *Neurologic Denies dizziness, Denies seizure-like activity Meds Home Medications Medication Instructions Recorded Confirmed Type Aspirin 81 mg PO DAILY 09/21/17 12/14/20 History carvedilol 25 mg tablet 25 mg PO BID tab 08/28/19 12/14/20 History insulin glargine 100 unit/mL (3 32 unit SQ HS ml 08/28/19 12/14/20 History mL) subcutaneous pen metformin 500 mg tablet 500 mg PO BID tab 08/28/19 12/14/20 History sertraline 100 mg tablet 200 mg PO DAILY tab 08/28/19 12/14/20 History Dulaglutide [Trulicity] 0.75 mg SQ WEEKLY 03/28/20 12/14/20 History niacin 500 mg tablet 500 mg PO DAILY 04/08/20 12/14/20 History nitroglycerin 0.4 mg sublingual 0.4 mg SUBLINGUAL Q5M PRN #20 tab 06/16/20 12/14/20 Rx tablet Atorvastatin Calcium [Lipitor 80mg 80 mg PO DAILY 12/14/20 12/14/20 History Tablet*] Gabapentin 600 mg PO BID 12/14/20 12/14/20 History lisinopriL [Lisinopril] 40 mg PO BID 12/14/20 12/14/20 History Allergies Allergy/AdvReac Type Severity Reaction Status Date / Time No Known Allergies Allergy Verified 10/06/20 13:39 Exam Vital signs and Labs for Last 24 Hours: Temp Pulse Resp BP Pulse Ox 98.4 F 81 20 186/94 H 99 12/14/20 08:20 12/14/20 09:00 12/14/20 09:00 12/14/20 09:00 12/14/20 09:41 Laboratory Results - last 24 hr 12/14/20 01:45: SARS-CoV-2 (PCR) Detected A, Influenza A Untype (PCR) Not detected, Influenza Type B (PCR) Not detected 12/14/20 02:32: WBC 4.7 L, RBC 4.45 L, Hgb 12.6 L, Hct 36.4 L, MCV 81.7, MCH 28.3, MCHC 34.7, RDW 13.8, Plt Count 103 L, MPV 9.2, Neut % (Auto) 78.0, Lymph % (Auto) 12.1, [place] % (Auto) 9.0, Eos % (Auto) 0.6, Baso % (Auto) 0.2, Neut # (Auto) 3.7, Lymph # (Auto) 0.6 L, [place] # (Auto) 0.4, Eos # (Auto) 0.0, Baso # (Auto) 0.0 12/14/20 02:32: Sodium 130 L, Potassium 4.6, Chloride 95 L, Carbon Dioxide 28, Anion Gap 11.6, BUN 20 D, Creatinine 1.10, Estimated Creat Clear 121, Estimated GFR 69, Est GFR ( Amer) 84, Glucose 167 H, Calcium 8.2 L, Total Bilirubin 0.9, AST 60 H, ALT 31, Alkaline Phosphatase 59, Troponin I 0.02, Total Protein 6.8, Albumin 3.5, Globulin 3.3 H, Albumin/Globulin Ratio 1.1, TSH 1.12, Thyroxine (T4) 6.
[2020-12-14 16:50] LABS: POC Glucose,Bedside 254 (70-110)
[2020-12-14 16:50] LABS: POC Glucose,Bedside 289 (70-110)
--- NOTE | 2020-12-14 18:31 | PC.NURSE ---
Pt has rested off and on this shift. Sats stable on 4LNC. No complaints noted. Will continue to monitor.
[2020-12-14 21:35] LABS: POC Glucose,Bedside 255 (70-110)
[2020-12-15] VITALS (8 sets, daily range): BP systolic 131–193; BP diastolic 71–111; PULSE 75–100; RESP 19–25; TEMP 36.8–38.1; O2SAT 88–99; BMI 31.8
--- NOTE | 2020-12-15 04:39 | PC.NURSE ---
Pt has slept at intervals. He remains on 4L O2 NC. Pt becomes soa on exertion. Lungs diminished t/o. Scattered rhonchi noted. BP has been elevated at times. VSS at this time. Urine output 1350. No BM. Medications administered per mar. Will continue to monitor.
[2020-12-15 06:30] LABS: POC Glucose,Bedside 199 (70-110)
[2020-12-15 06:46] LABS: Basophils % 0.1 % (0.1-2.0); Eosinophils % 0.1 % (0.1-12.0); Hematocrit 36.7 % (42.0-52.0); Lymphocytes # 0.4 K/mm3 (0.7-4.5); Lymphocytes % 7.1 % (10-50); Mean Corpuscular HGB Conc 32.8 g/dL (31.8-35.4); Mean Corpuscular Volume 82.4 fl (80-94); Mean Platelet Volume 8.2 fl (7.4-10.4); Monocytes # 0.2 K/mm3 (0.1-1.0); Neutrophils # 4.7 K/mm3 (1.8-7.8); Neutrophils % 89.8 % (37.0-80.0); Platelet Count 124 K/mm3 (142-424); Red Blood Count 4.45 M/mm3 (4.60-6.20); Red Cell Distribution Width 13.6 % (11.5-17.5); White Blood Count 5.2 K/mm3 (4.8-10.8)
[2020-12-15 06:48] LABS: Alanine Aminotransferase 27 U/L (12-78); Albumin Level 2.7 g/dl (3.5-5.0); Albumin/Globulin Ratio 0.9 (1.1-1.8); Alkaline Phosphatase 53 U/L (38-126); Anion Gap 8.3 mEq/L (5-15); Aspartate Amino Transferase 55 U/L (17-59); Bilirubin,Total 0.5 mg/dl (0.2-1.3); Blood Urea Nitrogen 23 mg/dl (9-20); Calcium 7.6 mg/dl (8.4-10.2); Carbon Dioxide 29 mmol/L (22.0-30.0); Chloride 100 mmol/L (98-107); Creatinine Clearance Estimated 120 mL/min (50-200); Estimated Glomerular Filt Rate 77 ml/min (>60); GFR (African American) 94 ML/MIN (>60); Globulin 2.9 g/dL (1.3-3.2); Glucose 197 mg/dl (74-100); Magnesium 1.9 mg/dl (1.6-2.3); Potassium 4.3 mmoL/L (3.5-5.1); Sodium 133 mmol/L (136-145); Total Protein,Serum 5.6 g/dl (6.3-8.2)
[2020-12-15 07:29] LABS: MANUAL DIFFERENTIAL MANUAL DIFFERENTIAL (MANUAL DIFF)
--- NOTE | 2020-12-15 07:42 | ECG_ITS ---
APPROVED REPORT Exam: Resting ECG HR:99 bpm ECG Measurements Heart Rate 99 AXES HI 142 P 68 QRSd 94 QRS 127 QT 338 T 24 QTc 433 Conclusion Normal sinus rhythm Left posterior fascicular block Abnormal ECG Electronically signed by : Brian Mohr MD 12/16/2020 20:49:38
--- NOTE | 2020-12-15 08:10 | PC.NURSE ---
has been made aware of PT's high pressure
--- NOTE | 2020-12-15 08:24 | HMH.ACPN2 ---
Internal Medicine - PN: Subj *Date: 12/15/20 *Time: 08:34 Interval history: Mr. Hernandez was stable overnight however this morning developed worsening chest discomfort and hypertension. [place] more anxious and chest pain due to coughing. On morning rounds, EKG obtained showing no ST abnormalities, old fascicular block. Oxygen was increased to 6 L. Blood pressure meds given early in pain treatment given. Over the course of morning rounds his blood pressure decreased from systolic of 220 to 180, improvement in his chest discomfort. Reviewed his echocardiogram from yesterday, mildly reduced left ventricular ejection fraction of 45%. Of note, reviewed patient's cardiac history this morning with him. Had a CABG performed in 2017. Patient otherwise tolerating fair p.o. intake. Denies any confusion or fever. Exam Vital signs and Labs for Last 24 Hours: Temp Pulse Resp BP Pulse Ox 98.9 F 100 H 24 193/111 H 88 L 12/15/20 08:00 12/15/20 08:00 12/15/20 08:00 12/15/20 08:00 12/15/20 08:00 Laboratory Results - last 24 hr 12/14/20 09:15: Troponin I 0.03 12/14/20 11:56: POC Glucose 289 H 12/14/20 16:41: POC Glucose 254 H 12/14/20 20:42: POC Glucose 255 H 12/15/20 05:45: WBC 5.2, RBC 4.45 L, Hgb 12.0 L, Hct 36.7 L, MCV 82.4, MCH 27.0, MCHC 32.8, RDW 13.6, Plt Count 124 L, MPV 8.2, Neut % (Auto) 89.8 H, Lymph % (Auto) 7.1 L, [place] % (Auto) 3.0, Eos % (Auto) 0.1, Baso % (Auto) 0.1, Neut # (Auto) 4.7, Lymph # (Auto) 0.4 L, [place] # (Auto) 0.2, Eos # (Auto) 0.0, Baso # (Auto) 0.0 12/15/20 05:45: Sodium 133 L, Potassium 4.3, Chloride 100, Carbon Dioxide 29, Anion Gap 8.3, BUN 23 H, Creatinine 1.00, Estimated Creat Clear 120, Estimated GFR 77, Est GFR ( Amer) 94, Glucose 197 H, Calcium 7.6 L, Magnesium 1.9, Total Bilirubin 0.5, AST 55, ALT 27, Alkaline Phosphatase 53, Total Protein 5.6 L, Albumin 2.7 L D, Globulin 2.9, Albumin/Globulin Ratio 0.9 L 12/15/20 06:24: POC Glucose 199 H I & O for Last 24 hours: Intake & Output 12/12/20 12/13/20 12/14/20 12/15/20 23:59 23:59 23:59 23:59 Intake Total 1400 / 1400 Output Total 2130 / 2580 1350 / 1350 Balance -730 / -1180 -1350 / -1350 Weight 102 kg 103.051 kg Microbiology Reports for the Last 24 Hours: Microbiology 12/14/20 19:50 Sputum - Expectorated Sputum Gram Stain - Final - Constitutional mild distress, obese - *Routine HEENT Exam Head: Present: normocephalic Eye: Present: EOMI, PERRL ENT: Present: mucous membranes moist - *Routine Neck Exam Present: supple. Absent: lymphadenopathy - Routine Chest/Breast/Axilla Exam Comments: Well-healed sternotomy scar from previous CABG - *Routine Respiratory Exam Present: accessory muscle use, rhonchi, diminished air movement. Absent: wheezes, crackles - *Routine Cardiovascular Exam Present: Normal S1, Normal S2, tachycardia. Absent: murmur - *Routine Abdominal Exam Present: soft, normoactive bowel sounds. Absent: tenderness - *Routine Extremities Exam Present: edema (trace). Absent: cyanosis, clubbing - *Routine Skin Exam Present: warm. Absent: rash - *Routine Neurological Exam Present: alert, oriented X3 Assessment and Plan (1) Acute respiratory failure due to COVID-19 Status: Acute Category: Medical Code(s): U07.1 - COVID-19; J96.00 - Acute respiratory failure, unspecified whether with hypoxia or hypercapnia (2) COVID-19 with pulmonary comorbidity Status: Acute Category: Medical Code(s): U07.1 - COVID-19; J98.4 - Other disorders of lung (3) Diabetes mellitus Status: Chronic Qualifiers: Diabetes mellitus type: type 2 Diabetes mellitus manager terminal insulin use: unspecified manager terminal insulin use status Diabetes mellitus complication status: with other specified complication Qualified Code(s): E11.69 - Type 2 diabetes mellitus with other specified complication Category: Medical Code(s): E11.9 - Type 2 diabetes mellitus without complications (4) Ischemic cardi
[2020-12-15 10:15] LABS: Troponin I 0.02 ng/ml (0.00-0.034)
[2020-12-15 10:37] LABS: Lymphocytes % 7 % (10-50); Monocytes % 4 % (2-9); Neutrophils % 89 % (42-76); Platelet Estimate Normal; Total Cells Counted 100
[2020-12-15 12:10] LABS: POC Glucose,Bedside 199 (70-110)
[2020-12-15 17:16] LABS: POC Glucose,Bedside 221 (70-110)
--- NOTE | 2020-12-15 17:53 | PC.NURSE ---
After morning episode of some chest discomfort and anxiety pt has rested well and is having a much better afternoon. VSS. pt has had no further complaints today. pt voiding per urinal. 6LNC in place. will continue to monitor
--- NOTE | 2020-12-15 23:57 | PC.NURSE ---
Pt desat to mid 80s and remained. Pt was repositioned. Pt O2 declined to 79%. NRB placed on pt. Pt was placed in prone position where he is currently with encouragement. Current O2 sat is 95%. Will continue to monitor.
[2020-12-16] VITALS (13 sets, daily range): BP systolic 159–176; BP diastolic 83–94; PULSE 70–100; RESP 18–42; TEMP 36.8–37.6; O2SAT 94–98; BMI 31.8
--- NOTE | 2020-12-16 02:13 | PC.NURSE ---
Notified Dr Soto of patients increasing confusion, increased work of breathing with abdominal muscle use, and increased restlessness/agitation. Pt also requiring increased oxygen demand since beginning of shift. V/O for STAT ABG obtained.
[2020-12-16 02:26] LABS: ABG Base Excess -2.5 mmol/L (-2.4-2.3); ABG HCO3 23.3 mmhg (22.0-26.0); ABG Oxygen Saturation 98 % (90-100); ABG PCO2 44.7 mmhg (35.0-45.0); ABG PH 7.34 mmol/L (7.35-7.45); ABG PO2 105.5 mmhg (80-100); ABG TCO2 24.7 mmhg (23-27)
--- NOTE | 2020-12-16 02:32 | XR_ITS ---
PROCEDURE INFORMATION: Exam: XR Chest Exam date and time: 12/16/2020 2:32 AM Age: 55 years old Clinical indication: Shortness of breath; Patient HX: Covid; Additional info: Increased wob, confusion, desaturation TECHNIQUE: Imaging protocol: XR of the chest. Views: 1 view. COMPARISON: CR XR CHEST 2V 12/14/2020 3:11 AM FINDINGS: Lungs: Extensive bilateral airspace opacities, progressive/more confluent compared to prior study. Pleural spaces: No pleural effusion. No pneumothorax. Heart/Mediastinum: Unchanged cardiomegaly. Bones/joints: Median sternotomy wires and mediastinal surgical clips are noted. Scattered degenerative changes. IMPRESSION: Severe bilateral multifocal pneumonia, with imaging progression since 12/14/2020.
--- NOTE | 2020-12-16 02:32 | PC.NURSE ---
ABG results obtained and relayed to Dr. Soto. pH 7.335 pCO2 44.7 pO2 105.5 HCO3 23.3 V/O for STAT chest xray obtained at this time from Dr. Soto. Notified radiology of new order.
--- NOTE | 2020-12-16 03:32 | PC.NURSE ---
Pt's work of breathing has increased. 40R per min. Pt is currently on 40L 100% Vapotherm. New orders received. Lasix [address] F/C.
[2020-12-16 07:34] LABS: Basophils % 0.1 % (0.1-2.0); Eosinophils % 0.3 % (0.1-12.0); Hematocrit 32.8 % (42.0-52.0); Hemoglobin 11.2 g/dL (14.1-18.0); Lymphocytes # 0.4 K/mm3 (0.7-4.5); Lymphocytes % 9.3 % (10-50); Mean Corpuscular HGB Conc 34.1 g/dL (31.8-35.4); Mean Corpuscular Hemoglobin 27.9 pg (27.0-31.2); Mean Corpuscular Volume 81.8 fl (80-94); Mean Platelet Volume 9.6 fl (7.4-10.4); Monocytes # 0.1 K/mm3 (0.1-1.0); Monocytes % 3.4 % (1.7-9.3); Neutrophils # 3.3 K/mm3 (1.8-7.8); Neutrophils % 86.8 % (37.0-80.0); Platelet Count 129 K/mm3 (142-424); Red Blood Count 4.01 M/mm3 (4.60-6.20); Red Cell Distribution Width 13.8 % (11.5-17.5); White Blood Count 3.8 K/mm3 (4.8-10.8)
[2020-12-16 07:44] LABS: MANUAL DIFFERENTIAL MANUAL DIFFERENTIAL (MANUAL DIFF)
[2020-12-16 08:02] LABS: Alanine Aminotransferase 25 U/L (12-78); Albumin Level 2.6 g/dl (3.5-5.0); Alkaline Phosphatase 46 U/L (38-126); Aspartate Amino Transferase 66 U/L (17-59); Bilirubin,Total 0.6 mg/dl (0.2-1.3); Blood Urea Nitrogen 29 mg/dl (9-20); Calcium 7.5 mg/dl (8.4-10.2); Carbon Dioxide 29 mmol/L (22.0-30.0); Chloride 99 mmol/L (98-107); Creatinine Clearance Estimated 100 mL/min (50-200); Estimated Glomerular Filt Rate 63 ml/min (>60); GFR (African American) 76 ML/MIN (>60); Globulin 2.7 g/dL (1.3-3.2); Glucose 116 mg/dl (74-100); Sodium 132 mmol/L (136-145); Total Protein,Serum 5.3 g/dl (6.3-8.2)
--- NOTE | 2020-12-16 08:10 | HMH.ACPN2 ---
Internal Medicine - PN: Subj *Date: 12/16/20 *Time: 08:10 Interval history: Worsening respiratory status overnight. Requiring Vapotherm. Blood gas reviewed however showing PaO2 greater than 100. PCO2 in the low 40s. pH 7.33. Blood pressure better controlled overnight. Has had some waxing and waning delirium pulling off oxygen delivery devices resting on exam this morning. Remains afebrile. Tolerating small amounts of p.o. intake. Exam Vital signs and Labs for Last 24 Hours: Temp Pulse Resp BP Pulse Ox 98.9 F 86 35 H 159/87 H 94 L 12/16/20 04:00 12/16/20 04:00 12/16/20 04:00 12/16/20 04:00 12/16/20 04:00 Laboratory Results - last 24 hr 12/15/20 05:45: Total Counted 100, Neutrophils % (Manual) 89 H, Lymphocytes % (Manual) 7 L, Monocytes % (Manual) 4, Platelet Estimate Normal 12/15/20 08:30: Troponin I 0.02 12/15/20 12:02: POC Glucose 199 H 12/15/20 17:06: POC Glucose 221 H 12/16/20 06:05: Sodium 132 L, Potassium 4.0, Chloride 99, Carbon Dioxide 29, Anion Gap 8.0, BUN 29 H D, Creatinine 1.20, Estimated Creat Clear 100, Estimated GFR 63, Est GFR ( Amer) 76, Glucose 116 H, Calcium 7.5 L, Total Bilirubin 0.6, AST 66 H, ALT 25, Alkaline Phosphatase 46, Total Protein 5.3 L, Albumin 2.6 L, Globulin 2.7, Albumin/Globulin Ratio 1.0 L 12/16/20 06:05: WBC 3.8 L D, RBC 4.01 L, Hgb 11.2 L, Hct 32.8 L, MCV 81.8, MCH 27.9, MCHC 34.1, RDW 13.8, Plt Count 129 L, MPV 9.6, Neut % (Auto) 86.8 H, Lymph % (Auto) 9.3 L, [place] % (Auto) 3.4, Eos % (Auto) 0.3, Baso % (Auto) 0.1, Neut # (Auto) 3.3, Lymph # (Auto) 0.4 L, [place] # (Auto) 0.1, Eos # (Auto) 0.0, Baso # (Auto) 0.0 I & O for Last 24 hours: Intake & Output 12/13/20 12/14/20 12/15/20 12/16/20 23:59 23:59 23:59 23:59 Intake Total 1400 / 1400 300 / 540 240 / 240 Output Total 2130 / 2580 1800 / 2050 850 / 850 Balance -730 / -1180 -1500 / -1510 -610 / -610 Weight 102 kg 103.051 kg 103.136 kg Microbiology Reports for the Last 24 Hours: Microbiology 12/14/20 02:32 Blood Blood Culture - Preliminary NO GROWTH AFTER 48 HOURS 12/14/20 02:32 Blood Blood Culture - Preliminary NO GROWTH AFTER 48 HOURS Narrative: - Constitutional moderate distress, obese - *Routine HEENT Exam Head: Present: normocephalic Eye: Present: EOMI, PERRL ENT: Present: mucous membranes moist - *Routine Neck Exam Present: supple. Absent: lymphadenopathy - Routine Chest/Breast/Axilla Exam Well-healed sternotomy scar from previous CABG - *Routine Respiratory Exam Accessory muscle use, rhonchi, diminished air movement. intermittent wheezes, crackles - *Routine Cardiovascular Exam Present: Normal S1, Normal S2, tachycardia. Absent: murmur - *Routine Abdominal Exam Present: soft, normoactive bowel sounds. Absent: tenderness - *Routine Extremities Exam Present: edema (trace). Absent: cyanosis, clubbing - *Routine Skin Exam warm. 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
[2020-12-16 08:50] LABS: Lymphocytes % 3 % (10-50); Monocytes % 5 % (2-9); Neutrophils % 92 % (42-76); Nucleated Red Blood Cells 1; Total Cells Counted 100
[2020-12-16 08:51] LABS: Hypochromasia 1+; Microcytosis 1+; Platelet Estimate Normal
[2020-12-16 08:56] LABS: Oxygen 100 %; Source R RADIAL
[2020-12-16 08:57] LABS: Magnesium 1.9 mg/dl (1.6-2.3)
--- NOTE | 2020-12-16 14:09 | HMH.PULMCON ---
*Admission Date: 12/14/20 *Reason for consult:: Acute hypoxic respiratory failure, COVID-19 pneumonia *History of present illness: Mr. Hernandez is a a 55-year-old male no significant prior respiratory complaints presented hospital with worsening respiratory symptoms found to be COVID-19 positive with increasing oxygen requirement since admission eventually needing high flow nasal cannula abdomen supplementation and pulmonary was called for further management [facility] History Medical History: Reports:: Atherosclerotic Heart Disease, Congestive Heart Failure, Coronary Artery Disease, Diabetes Mellitus Type 2, Gastroesophageal Reflux Disease(GERD), Hyperlipidemia, Hypertension, Myocardial Infarction Denies:: Cancer, Diabetes Mellitus Type 1, Internal Pacemaker, MRSA, Seizures *Have you ever received a pneumonia vaccine?: No *Have you received a flu vaccine this season?: No Other Medical History: Reports: Cataracts, Other Other Surgeries: Yes: CABG, Cardiac Catheterization, Cardiac Surgery, Coronary Stent. No: Pacemaker Amputation: No Fractures: No - *Social History Smoking Status: Former smoker Tobacco Type: cigarettes #Yrs smoked (if former smoker): 44 Alcohol Intake: former Alcohol Intake Frequency:: 3 or more drinks per day Substance Use Type: denies use *Occupational Status:: employed Household Members: spouse *Travel in the last 8 weeks: None Family Hx:: Unable to obtain ROS - Cons Reports anorexia, Reports body ache(s) - ENT Denies difficulty swallowing - Card Reports shortness of breath, Reports shortness of breath with activity, Denies chest pain at rest - Resp Respiratory: Reports chest congestion, Reports cough, Reports dyspnea, Reports dyspnea on exertion - GI Gastrointestingal: Denies: abdominal pain - [place] Musculoskeletal: Denies decreased muscle mass - Psych Reports abnormal sleep pattern Meds Home Medications Medication Instructions Recorded Confirmed Type Aspirin 81 mg PO DAILY 09/21/17 12/14/20 History carvedilol 25 mg tablet 25 mg PO BID tab 08/28/19 12/14/20 History insulin glargine 100 unit/mL (3 32 unit SQ HS ml 08/28/19 12/14/20 History mL) subcutaneous pen metformin 500 mg tablet 500 mg PO BID tab 08/28/19 12/14/20 History sertraline 100 mg tablet 200 mg PO DAILY tab 08/28/19 12/14/20 History Dulaglutide [Trulicity] 0.75 mg SQ WEEKLY 03/28/20 12/14/20 History niacin 500 mg tablet 500 mg PO DAILY 04/08/20 12/14/20 History nitroglycerin 0.4 mg sublingual 0.4 mg SUBLINGUAL Q5M PRN #20 tab 06/16/20 12/14/20 Rx tablet Atorvastatin Calcium [Lipitor 80mg 80 mg PO DAILY 12/14/20 12/14/20 History Tablet*] Gabapentin 600 mg PO BID 12/14/20 12/14/20 History lisinopriL [Lisinopril] 40 mg PO BID 12/14/20 12/14/20 History Allergies Allergy/AdvReac Type Severity Reaction Status Date / Time No Known Allergies Allergy Verified 10/06/20 13:39 Exam - Constitutional Constitutional:: Present: no acute distress, comfortable - HENMT Exam HENMT: Present: normocephalic, atraumatic - Eye Exam Eyes:: Present: normal appearance both eyes and related structures - Neck Exam Neck:: Present: normal visual inspection - Respiratory Exam Respiratory:: Present: able to speak in complete sentences, no respiratory distress, crackles - Cardiovascular Exam Cardiac:: Present: S1, S2 - GI Exam GI:: Present: soft - Skin Exam Skin: Present: warm, no rash - Neurological Exam Neurological: Present: alert, awake, normal cognition - Extremities Exam Extremities: Present: no cyanosis, no clubbing, no edema Internal Medicine - CN: Reslt - Labs CBC & Chem 7: 12/16/20 06:05 12/16/20 06:05 Labs: Short CBC 12/16/20 Range/Units 06:05 WBC 3.8 L D (4.8-10.8) K/mm3 Hgb 11.2 L (14.1-18.0) g/dL Hct 32.8 L (42.0-52.0) % Plt Count 129 L (142-424) K/mm3 BMP 12/16/20 06:05 Sodium 132 L Potassium 4.0 Chloride 99 Carbon Dioxide 29 BUN 29 H D Creatinine
--- NOTE | 2020-12-16 17:38 | DIET.NUTRFU ---
Addendum entered by Astrid Fitch 12/18/20 16:44: Pt given ADA diet, recommend PO intake as tolerated and offering glucerna if unable to tolerate solids. Weight stable, BG moderate- avg. 230. Original Note: Pt in critical condition, made NPO per Dr. Shaw and not currently receiving IVF. Weight stable, BG moderate- avg. 200. Continuing to monitor.
[2020-12-16 20:07] LABS: POC Glucose,Bedside 201 (70-110)
[2020-12-16 20:07] LABS: POC Glucose,Bedside 85 (70-110)
[2020-12-16 20:07] LABS: POC Glucose,Bedside 184 (70-110)
[2020-12-16 20:07] LABS: POC Glucose,Bedside 206 (70-110)
[2020-12-17] VITALS (19 sets, daily range): BP systolic 140–187; BP diastolic 72–94; PULSE 67–80; RESP 4–35; TEMP 36.6–37.1; O2SAT 93–98; BMI 31.8
--- NOTE | 2020-12-17 05:29 | PC.NURSE ---
Patient had an uneventful night this shift. Has rested with eyes closed and laid on his left and right side. No s/s of acute distress noted this shift, call light within reach, bed at lowest level for safety; will continue to monitor.
[2020-12-17 05:43] LABS: POC Glucose,Bedside 219 (70-110)
--- NOTE | 2020-12-17 07:02 | HMH.ACPN2 ---
Internal Medicine - PN: Subj *Date: 12/17/20 *Time: 08:25 Interval history: Patient transitioned to BiPAP overnight. Is actually able to decrease his FiO2 requirement a little to 80%. Tolerating that level of oxygen with saturations in the mid to high 90s. Slept well. Patient alert this morning on interview, states he feels little bit better. Afebrile. Blood pressure still elevated. Responded well to diuresis yesterday. Labs reviewed this morning. Exam Vital signs and Labs for Last 24 Hours: Temp Pulse Resp BP Pulse Ox 98.7 F 73 23 167/87 H 96 12/17/20 04:00 12/17/20 05:47 12/17/20 04:00 12/17/20 04:00 12/17/20 04:00 Laboratory Results - last 24 hr 12/15/20 19:58: POC Glucose 184 H 12/16/20 02:13: Specimen Source R radial, O2 % 100, ABG pH 7.34 L, ABG pCO2 44.7, ABG pO2 105.5 H, ABG HCO3 23.3, ABG Total CO2 24.7, ABG O2 Saturation 98, ABG Base Excess -2.5 L 12/16/20 06:03: POC Glucose 85 12/16/20 06:05: Sodium 132 L, Potassium 4.0, Chloride 99, Carbon Dioxide 29, Anion Gap 8.0, BUN 29 H D, Creatinine 1.20, Estimated Creat Clear 100, Estimated GFR 63, Est GFR ( Amer) 76, Glucose 116 H, Calcium 7.5 L, Total Bilirubin 0.6, AST 66 H, ALT 25, Alkaline Phosphatase 46, Total Protein 5.3 L, Albumin 2.6 L, Globulin 2.7, Albumin/Globulin Ratio 1.0 L 12/16/20 06:05: WBC 3.8 L D, RBC 4.01 L, Hgb 11.2 L, Hct 32.8 L, MCV 81.8, MCH 27.9, MCHC 34.1, RDW 13.8, Plt Count 129 L, MPV 9.6, Neut % (Auto) 86.8 H, Lymph % (Auto) 9.3 L, [place] % (Auto) 3.4, Eos % (Auto) 0.3, Baso % (Auto) 0.1, Neut # (Auto) 3.3, Lymph # (Auto) 0.4 L, [place] # (Auto) 0.1, Eos # (Auto) 0.0, Baso # (Auto) 0.0, Total Counted 100, Neutrophils % (Manual) 92 H, Lymphocytes % (Manual) 3 L, Monocytes % (Manual) 5, Nucleated RBCs 1, Platelet Estimate Normal, Hypochromasia 1+, Microcytosis 1+ 12/16/20 06:05: Magnesium 1.9 12/16/20 12:17: POC Glucose 201 H 12/16/20 17:03: POC Glucose 206 H 12/17/20 05:35: POC Glucose 219 H I & O for Last 24 hours: Intake & Output 12/14/20 12/15/20 12/16/20 12/17/20 23:59 23:59 23:59 23:59 Intake Total 1400 / 1400 300 / 540 240 / 240 360 / 360 Output Total 2130 / 2580 1800 / 2050 3350 / 4250 900 / 900 Balance -730 / -1180 -1500 / -1510 -3110 / -4010 -540 / -540 Weight 102 kg 103.051 kg 103.136 kg 103.238 kg Microbiology Reports for the Last 24 Hours: Microbiology 12/14/20 19:50 Sputum - Expectorated Sputum Gram Stain - Final 12/14/20 19:50 Sputum - Expectorated Sputum Sputum Culture - Preliminary Narrative: - Constitutional mild distress, obese - *Routine HEENT Exam Head: Present: normocephalic Eye: Present: EOMI, PERRL ENT: Present: mucous membranes moist - *Routine Neck Exam Present: supple. Absent: lymphadenopathy - Routine Chest/Breast/Axilla Exam Well-healed sternotomy scar from previous CABG - *Routine Respiratory Exam Accessory muscle use, rhonchi, diminished air movement. intermittent wheezes, crackles - *Routine Cardiovascular Exam Present: Normal S1, Normal S2, tachycardia. Absent: murmur - *Routine Abdominal Exam Present: soft, normoactive bowel sounds. Absent: tenderness - *Routine Extremities Exam Present: edema (trace). Absent: cyanosis, clubbing - *Routine Skin Exam warm. Absent: rash - *Routine Neurological Exam alert, oriented X2, worsening confusion Assessment and Plan (1) Acute respiratory failure due to COVID-19 Status: Acute Category: Medical Code(s): U07.1 - COVID-19; J96.00 - Acute respiratory failure, unspecified whether with hypoxia or hypercapnia (2) COVID-19 with pulmonary comorbidity Status: Acute Category: Medical Code(s): U07.1 - COVID-19; J98.4 - Other disorders of lung (3) Diabetes mellitus Status: Chronic Qualifiers: Diabetes mellitus type: type 2 Diabetes mellitus prison insulin use: unspecified superintendent container terminal insulin use status Diabetes mellitus complication status: with other specified complication Qualified
[2020-12-17 07:40] LABS: Alanine Aminotransferase 24 U/L (12-78); Albumin Level 2.5 g/dl (3.5-5.0); Albumin/Globulin Ratio 0.9 (1.1-1.8); Alkaline Phosphatase 48 U/L (38-126); Aspartate Amino Transferase 65 U/L (17-59); Bilirubin,Total 0.7 mg/dl (0.2-1.3); Blood Urea Nitrogen 35 mg/dl (9-20); Calcium 7.7 mg/dl (8.4-10.2); Carbon Dioxide 30 mmol/L (22.0-30.0); Chloride 97 mmol/L (98-107); Creatinine Clearance Estimated 120 mL/min (50-200); Estimated Glomerular Filt Rate 77 ml/min (>60); GFR (African American) 94 ML/MIN (>60); Globulin 2.7 g/dL (1.3-3.2); Glucose 229 mg/dl (74-100); Sodium 132 mmol/L (136-145); Total Protein,Serum 5.2 g/dl (6.3-8.2)
[2020-12-17 07:42] LABS: ABG Base Excess 5.1 mmol/L (-2.4-2.3); ABG Oxygen Saturation 97 % (90-100); ABG PCO2 42.5 mmhg (35.0-45.0); ABG PH 7.45 mmol/L (7.35-7.45); ABG PO2 90.2 mmhg (80-100); ABG TCO2 30.3 mmhg (23-27); Allen's Test Patient Unable; Oxygen 80 %
[2020-12-17 07:43] LABS: Source Left Radial
--- NOTE | 2020-12-17 09:51 | HMH.PULMPN ---
Internal Medicine - PN: Subj *Date: 12/17/20 *Time: 14:19 Interval history: No acute respiratory events overnight. Exam - Constitutional Constitutional:: Present: no acute distress, comfortable - HENMT Exam HENMT: Present: normocephalic, atraumatic - Eye Exam Eyes:: Present: normal appearance both eyes and related structures - Respiratory Exam Respiratory:: Present: respiratory distress, crackles - Cardiovascular Exam Cardiac:: Present: S1, S2 - GI Exam GI:: Present: soft - Skin Exam Skin: Present: warm, no rash - Neurological Exam Neurological: Present: alert, awake, normal cognition - Extremities Exam Extremities: Present: no cyanosis, no clubbing Assessment and Plan (1) Acute respiratory failure due to COVID-19 Status: Acute Category: Medical Code(s): U07.1 - COVID-19; J96.00 - Acute respiratory failure, unspecified whether with hypoxia or hypercapnia (2) COVID-19 with pulmonary comorbidity Status: Acute Category: Medical Code(s): U07.1 - COVID-19; J98.4 - Other disorders of lung (3) Diabetes mellitus Status: Chronic Qualifiers: Diabetes mellitus type: type 2 Diabetes mellitus long term acute care registered nurse insulin use: unspecified detention insulin use status Diabetes mellitus complication status: with other specified complication Qualified Code(s): E11.69 - Type 2 diabetes mellitus with other specified complication Category: Medical Code(s): E11.9 - Type 2 diabetes mellitus without complications (4) Ischemic cardiomyopathy Status: Acute Category: Medical Code(s): I25.5 - Ischemic cardiomyopathy (5) Hypertensive urgency Status: Acute Category: Medical Code(s): I16.0 - Hypertensive urgency (6) Obesity (BMI 30-39.9) Status: Chronic Category: Medical Code(s): E66.9 - Obesity, unspecified (7) Anxiety Status: Chronic Category: Medical Code(s): F41.9 - Anxiety disorder, unspecified - Assessment and plan all Dx Assessment and Plan for all problems:: #Acute hypoxic respiratory failure: #COVID-19 pneumonia: Mr. Hernandez is a 55-year-old male no prior respiratory complaint presented to the hospital worsening respiratory symptoms found to be COVID-19 positive. Patient significant and gradually worsened to this hospital admit eventually needing high flow nasal oxygen supplementation and pulmonary was called for further management. Patient currently receiving ceftriaxone and azithromycin along with remdesivir and dexamethasone. He was initiated on Barcitinib today. Blood cultures no growth 48 hours. Sputum from admission showing gram-negative rods along with gram-positive cocci in pairs and chains. CT on admission did not areas of pulmonary embolism however showed bilateral pulmonary flex right greater than left with evidence of volume overload. Chest x-ray most recently showed worsening bilateral airspace disease with evidence of volume overload. BNP on admission elevated at 44,200. Only Trace edema noted on bilateral lower extremity examination CRP elevated at 143.9 Patient respiratory worsened since admission needing high flow and eventually changed to BiPAP given evidence of volume overload. His oxygen recommend significant improvement since yesterday with diuresis. His FiO2 was decreased 100% to 70% today. We will continue to diurese and will wean his O2 as tolerated. Renal function stable. Plan: -Continue recommend to continue aggressive diuresis with IV Lasix with a net negative 1 to 2 L goal in the next 24 hours -Continue BiPAP -wean FiO2 as tolerated -Continue remdesivir, dexamethasone and Barcitinib for his COVID-19 pneumonia. -Continue IV levofloxacin 750 mg daily -DuoNebs every 6 hours scheduled -Repeat sputum cultures #Thank you for involving pulmonary in this patient care. We will continue to follow. please call with any further questions or concerns
[2020-12-17 11:19] LABS: POC Glucose,Bedside 225 (70-110)
--- NOTE | 2020-12-17 15:55 | PC.NURSE ---
received report from ERNESTO Brooks assumed care of pt at this time
--- NOTE | 2020-12-17 15:55 | PC.NURSE ---
Pt arrived to [facility] at this time.
[2020-12-17 22:04] LABS: POC Glucose,Bedside 226 (70-110)
[2020-12-17 22:04] LABS: POC Glucose,Bedside 232 (70-110)
[2020-12-18] VITALS (18 sets, daily range): BP systolic 162–191; BP diastolic 76–97; PULSE 63–83; RESP 7–26; TEMP 35.9–37.1; O2SAT 83–97; BMI 31.8
--- NOTE | 2020-12-18 03:36 | PC.NURSE ---
No acute changes t/o shift. Pt has rested well all night, continues to wear Bipap and has tolerated well. Pt's O2 will destat to 88% then quickly recover to 90%. Pt denies any pain. Moore is draining clear, yellow urine. Will continue to monitor.
[2020-12-18 06:22] LABS: Basophils % 0.1 % (0.1-2.0); Eosinophils % 0.2 % (0.1-12.0); Hematocrit 39.2 % (42.0-52.0); Hemoglobin 12.9 g/dL (14.1-18.0); Lymphocytes # 0.3 K/mm3 (0.7-4.5); Lymphocytes % 8.5 % (10-50); Mean Corpuscular Hemoglobin 26.9 pg (27.0-31.2); Mean Corpuscular Volume 81.6 fl (80-94); Mean Platelet Volume 7.3 fl (7.4-10.4); Monocytes # 0.2 K/mm3 (0.1-1.0); Monocytes % 5.6 % (1.7-9.3); Neutrophils # 2.7 K/mm3 (1.8-7.8); Neutrophils % 85.7 % (37.0-80.0); Platelet Count 175 K/mm3 (142-424); Red Blood Count 4.81 M/mm3 (4.60-6.20); Red Cell Distribution Width 13.4 % (11.5-17.5); White Blood Count 3.2 K/mm3 (4.8-10.8)
[2020-12-18 06:44] LABS: Magnesium 2.1 mg/dl (1.6-2.3)
[2020-12-18 06:46] LABS: MANUAL DIFFERENTIAL MANUAL DIFFERENTIAL (MANUAL DIFF)
[2020-12-18 06:54] LABS: Alanine Aminotransferase 23 U/L (12-78); Albumin Level 2.4 g/dl (3.5-5.0); Albumin/Globulin Ratio 0.9 (1.1-1.8); Alkaline Phosphatase 52 U/L (38-126); Anion Gap 8.2 mEq/L (5-15); Aspartate Amino Transferase 55 U/L (17-59); Bilirubin,Total 0.7 mg/dl (0.2-1.3); Blood Urea Nitrogen 39 mg/dl (9-20); Carbon Dioxide 30 mmol/L (22.0-30.0); Chloride 100 mmol/L (98-107); Creatinine Clearance Estimated 120 mL/min (50-200); Estimated Glomerular Filt Rate 77 ml/min (>60); GFR (African American) 94 ML/MIN (>60); Globulin 2.8 g/dL (1.3-3.2); Glucose 224 mg/dl (74-100); Potassium 4.2 mmoL/L (3.5-5.1); Sodium 134 mmol/L (136-145); Total Protein,Serum 5.2 g/dl (6.3-8.2)
[2020-12-18 07:08] LABS: POC Glucose,Bedside 250 (70-110)
[2020-12-18 07:09] LABS: Lymphocytes % 17 % (10-50); Monocytes % 2 % (2-9); Neutrophils % 81 % (42-76); Platelet Estimate Normal; RBC Morphology Normal; Total Cells Counted 100
--- NOTE | 2020-12-18 07:51 | HMH.ACPN2 ---
Internal Medicine - PN: Subj *Date: 12/18/20 *Time: 08:26 Interval history: Continues to show slight improvement. Down to 60% FiO2 on BiPAP this morning. Blood pressure continues to remain high. Diuresed well yesterday with -1.7 L. Patient hungry this morning. Denies any nausea or vomiting. No diarrhea. Still coughing but is nonproductive. Pleasant on interview this morning. Exam Vital signs and Labs for Last 24 Hours: Temp Pulse Resp BP Pulse Ox 97.6 F 70 24 174/91 H 93 L 12/18/20 07:37 12/18/20 07:37 12/18/20 07:37 12/18/20 07:37 12/18/20 07:37 Laboratory Results - last 24 hr 12/17/20 11:11: POC Glucose 225 H 12/17/20 17:16: POC Glucose 226 H 12/17/20 20:40: POC Glucose 232 H 12/18/20 05:34: POC Glucose 250 H 12/18/20 05:42: WBC 3.2 L, RBC 4.81, Hgb 12.9 L, Hct 39.2 L, MCV 81.6, MCH 26.9 L, MCHC 33.0, RDW 13.4, Plt Count 175 D, MPV 7.3 L, Neut % (Auto) 85.7 H, Lymph % (Auto) 8.5 L, [place] % (Auto) 5.6, Eos % (Auto) 0.2, Baso % (Auto) 0.1, Neut # (Auto) 2.7, Lymph # (Auto) 0.3 L, [place] # (Auto) 0.2, Eos # (Auto) 0.0, Baso # (Auto) 0.0, Total Counted 100, Neutrophils % (Manual) 81 H, Lymphocytes % (Manual) 17, Monocytes % (Manual) 2, Platelet Estimate Normal, RBC Morphology Normal 12/18/20 05:42: Magnesium 2.1 D 12/18/20 05:42: Sodium 134 L, Potassium 4.2, Chloride 100, Carbon Dioxide 30, Anion Gap 8.2, BUN 39 H, Creatinine 1.00, Estimated Creat Clear 120, Estimated GFR 77, Est GFR ( Amer) 94, Glucose 224 H, Calcium 8.0 L, Total Bilirubin 0.7, AST 55, ALT 23, Alkaline Phosphatase 52, Total Protein 5.2 L, Albumin 2.4 L, Globulin 2.8, Albumin/Globulin Ratio 0.9 L I & O for Last 24 hours: Intake & Output 12/15/20 12/16/20 12/17/20 12/18/20 23:59 23:59 23:59 23:59 Intake Total 300 / 540 240 / 240 634 / 634 Output Total 1800 / 2050 3350 / 4250 2400 / 2400 850 / 850 Balance -1500 / -1510 -3110 / -4010 -1766 / -1766 -850 / -850 Weight 103.051 kg 103.136 kg 103.238 kg 103.238 kg Microbiology Reports for the Last 24 Hours: Microbiology 12/14/20 19:50 Sputum - Expectorated Sputum Gram Stain - Final 12/14/20 19:50 Sputum - Expectorated Sputum Sputum Culture - Preliminary Narrative: - Constitutional mild distress, obese - *Routine HEENT Exam Head: Present: normocephalic Eye: Present: EOMI, PERRL ENT: Present: mucous membranes moist - *Routine Neck Exam Present: supple. Absent: lymphadenopathy - Routine Chest/Breast/Axilla Exam Well-healed sternotomy scar from previous CABG - *Routine Respiratory Exam Interval improvement in respiratory status/exam. Fair air movement bilaterally. No appreciable rhonchi. Crackles right posterior lung base. No significant wheeze - *Routine Cardiovascular Exam Present: Normal S1, Normal S2, tachycardia. Absent: murmur - *Routine Abdominal Exam Present: soft, normoactive bowel sounds. Absent: tenderness - *Routine Extremities Exam Present: edema (trace). Absent: cyanosis, clubbing - *Routine Skin Exam warm. Absent: rash - *Routine Neurological Exam alert, oriented X3 Assessment and Plan (1) Acute respiratory failure due to COVID-19 Status: Acute Category: Medical Code(s): U07.1 - COVID-19; J96.00 - Acute respiratory failure, unspecified whether with hypoxia or hypercapnia (2) COVID-19 with pulmonary comorbidity Status: Acute Category: Medical Code(s): U07.1 - COVID-19; J98.4 - Other disorders of lung (3) Diabetes mellitus Status: Chronic Qualifiers: Diabetes mellitus type: type 2 Diabetes mellitus nursing home insulin use: unspecified nursing home insulin use status Diabetes mellitus complication status: with other specified complication Qualified Code(s): E11.69 - Type 2 diabetes mellitus with other specified complication Category: Medical Code(s): E11.9 - Type 2 diabetes mellitus without complications (4) Ischemic cardiomyopathy Status: Acute Category: Medical Code(s): I25.5 - Ischemic
--- NOTE | 2020-12-18 08:57 | HMH.PULMPN ---
Internal Medicine - PN: Subj *Date: 12/18/20 *Time: 11:44 Interval history: No acute respiratory events overnight. Patient continues remain on BiPAP with improving symptoms. Exam - Constitutional Constitutional:: Present: no acute distress, comfortable - HENMT Exam HENMT: Present: normocephalic, atraumatic - Eye Exam Eyes:: Present: normal appearance both eyes and related structures - Neck Exam Neck:: Present: normal visual inspection - Respiratory Exam Respiratory:: Present: able to speak in complete sentences, respiratory distress, crackles - Cardiovascular Exam Cardiac:: Present: S1, S2 - GI Exam GI:: Present: soft - Skin Exam Skin: Present: warm - Neurological Exam Neurological: Present: alert, awake, normal cognition - Extremities Exam Extremities: Present: no cyanosis, no clubbing, no edema Assessment and Plan (1) Acute respiratory failure due to COVID-19 Status: Acute Category: Medical Code(s): U07.1 - COVID-19; J96.00 - Acute respiratory failure, unspecified whether with hypoxia or hypercapnia (2) COVID-19 with pulmonary comorbidity Status: Acute Category: Medical Code(s): U07.1 - COVID-19; J98.4 - Other disorders of lung (3) Diabetes mellitus Status: Chronic Qualifiers: Diabetes mellitus type: type 2 Diabetes mellitus terminal clerk insulin use: unspecified terminal clerk insulin use status Diabetes mellitus complication status: with other specified complication Qualified Code(s): E11.69 - Type 2 diabetes mellitus with other specified complication Category: Medical Code(s): E11.9 - Type 2 diabetes mellitus without complications (4) Ischemic cardiomyopathy Status: Acute Category: Medical Code(s): I25.5 - Ischemic cardiomyopathy (5) Hypertensive urgency Status: Acute Category: Medical Code(s): I16.0 - Hypertensive urgency (6) Obesity (BMI 30-39.9) Status: Chronic Category: Medical Code(s): E66.9 - Obesity, unspecified (7) Anxiety Status: Chronic Category: Medical Code(s): F41.9 - Anxiety disorder, unspecified - Assessment and plan all Dx Assessment and Plan for all problems:: #Acute hypoxic respiratory failure: #COVID-19 pneumonia: Mr. Hernandez is a 55-year-old male no prior respiratory complaint presented to the hospital worsening respiratory symptoms found to be COVID-19 positive. Patient significant and gradually worsened to this hospital admit eventually needing high flow nasal oxygen supplementation and pulmonary was called for further management. Patient currently receiving ceftriaxone and azithromycin along with remdesivir and dexamethasone. He was initiated on Barcitinib today. Blood cultures no growth 48 hours. Sputum from admission showing gram-negative rods along with gram-positive cocci in pairs and chains. CT on admission did not areas of pulmonary embolism however showed bilateral pulmonary flex right greater than left with evidence of volume overload. Chest x-ray most recently from 12/16 showed worsening bilateral airspace disease with evidence of volume overload. BNP on admission elevated at 44,200. Only Trace edema noted on bilateral lower extremity examination CRP elevated at 143.9 Interval update: His oxygen requirements have been improving with diuresis, we have weaned his FiO2. Renal function stable so far. Recommend to continue continue aggressively receive diuresis with close monitoring of his renal function and will wean his oxygen as tolerated Plan: -Continue recommend to continue aggressive diuresis with IV Lasix with a net negative 1 to 2 L goal in the next 24 hours. -Continue BiPAP -wean FiO2 as tolerated -Continue remdesivir, dexamethasone and Barcitinib for his COVID-19 pneumonia. -Continue IV levofloxacin 750 mg daily x 5 days . (Sputum from 12/14 showing rare gram-positive rods, gram-positive bacilli cocci in chains and clusters. Blood cultures no growth 48 hours. Nasal MRSA pending.) -DuoNebs every 6 hours sc
[2020-12-18 17:33] LABS: POC Glucose,Bedside 406 (70-110)
[2020-12-18 17:33] LABS: POC Glucose,Bedside 226 (70-110)
[2020-12-18 21:51] LABS: POC Glucose,Bedside 345 (70-110)
[2020-12-19] VITALS (17 sets, daily range): BP systolic 137–199; BP diastolic 80–92; PULSE 60–79; RESP 18–28; TEMP 36.5–37.1; O2SAT 89–96; BMI 31.8
--- NOTE | 2020-12-19 04:43 | PC.NURSE ---
pt is AxOx4, no complaints of SOA or pain, has remained on bipap t/o most of shift, O2 sats 92-97%
[2020-12-19 05:48] LABS: POC Glucose,Bedside 254 (70-110)
[2020-12-19 07:44] LABS: Eosinophils % 0.1 % (0.1-12.0); Hematocrit 38.1 % (42.0-52.0); Hemoglobin 12.7 g/dL (14.1-18.0); Lymphocytes # 0.3 K/mm3 (0.7-4.5); Lymphocytes % 5.8 % (10-50); Mean Corpuscular HGB Conc 33.4 g/dL (31.8-35.4); Mean Corpuscular Hemoglobin 27.3 pg (27.0-31.2); Mean Corpuscular Volume 81.7 fl (80-94); Mean Platelet Volume 7.2 fl (7.4-10.4); Monocytes # 0.2 K/mm3 (0.1-1.0); Monocytes % 5.1 % (1.7-9.3); Neutrophils # 3.9 K/mm3 (1.8-7.8); Neutrophils % 89.1 % (37.0-80.0); Platelet Count 210 K/mm3 (142-424); Red Blood Count 4.67 M/mm3 (4.60-6.20); Red Cell Distribution Width 13.4 % (11.5-17.5); White Blood Count 4.3 K/mm3 (4.8-10.8)
[2020-12-19 07:46] LABS: MANUAL DIFFERENTIAL MANUAL DIFFERENTIAL (MANUAL DIFF)
[2020-12-19 08:15] LABS: Alanine Aminotransferase 22 U/L (12-78); Albumin Level 2.4 g/dl (3.5-5.0); Albumin/Globulin Ratio 0.9 (1.1-1.8); Alkaline Phosphatase 56 U/L (38-126); Aspartate Amino Transferase 42 U/L (17-59); Bilirubin,Total 0.6 mg/dl (0.2-1.3); Blood Urea Nitrogen 36 mg/dl (9-20); Calcium 7.9 mg/dl (8.4-10.2); Carbon Dioxide 30 mmol/L (22.0-30.0); Chloride 100 mmol/L (98-107); Creatinine Clearance Estimated 134 mL/min (50-200); Estimated Glomerular Filt Rate 87 ml/min (>60); GFR (African American) 106 ML/MIN (>60); Globulin 2.6 g/dL (1.3-3.2); Glucose 254 mg/dl (74-100); Sodium 134 mmol/L (136-145)
--- NOTE | 2020-12-19 08:39 | HMH.ACPN2 ---
Internal Medicine - PN: Subj *Date: 12/19/20 *Time: 08:39 Interval history: Patient tolerated BiPAP well overnight, on nasal cannula currently, ate breakfast well. Feels good, actually wishes to go home today. Exam Vital signs and Labs for Last 24 Hours: Temp Pulse Resp BP Pulse Ox 98.5 F 71 24 199/87 H 94 L 12/19/20 08:00 12/19/20 08:00 12/19/20 08:00 12/19/20 08:00 12/19/20 08:00 Laboratory Results - last 24 hr 12/18/20 11:32: POC Glucose 226 H 12/18/20 17:17: POC Glucose 406 H* 12/18/20 21:43: POC Glucose 345 H* 12/19/20 05:40: POC Glucose 254 H 12/19/20 07:03: WBC 4.3 L D, RBC 4.67, Hgb 12.7 L, Hct 38.1 L, MCV 81.7, MCH 27.3, MCHC 33.4, RDW 13.4, Plt Count 210, MPV 7.2 L, Neut % (Auto) 89.1 H, Lymph % (Auto) 5.8 L, [facility] % (Auto) 5.1, Eos % (Auto) 0.1, Baso % (Auto) 0.0 L, Neut # (Auto) 3.9, Lymph # (Auto) 0.3 L, [facility] # (Auto) 0.2, Eos # (Auto) 0.0, Baso # (Auto) 0.0 12/19/20 07:03: Sodium 134 L, Potassium 4.0, Chloride 100, Carbon Dioxide 30, Anion Gap 8.0, BUN 36 H, Creatinine 0.90, Estimated Creat Clear 134, Estimated GFR 87, Est GFR ( Amer) 106, Glucose 254 H, Calcium 7.9 L, Magnesium 2.0, Total Bilirubin 0.6, AST 42, ALT 22, Alkaline Phosphatase 56, Total Protein 5.0 L, Albumin 2.4 L, Globulin 2.6, Albumin/Globulin Ratio 0.9 L I & O for Last 24 hours: Intake & Output 12/16/20 12/17/20 12/18/20 12/19/20 11:59 11:59 11:59 11:59 Intake Total 540 / 540 360 / 360 274 / 274 840 / 840 Output Total 3800 / 3800 900 / 900 4350 / 4350 2100 / 2100 Balance -3260 / -3260 -540 / -540 -4076 / -4076 -1260 / -1260 Weight 227 lb 6 oz 227 lb 9.6 oz 227 lb 9.613 oz 227 lb 9.613 oz Microbiology Reports for the Last 24 Hours: Microbiology 12/14/20 19:50 Sputum - Expectorated Sputum Gram Stain - Final 12/14/20 19:50 Sputum - Expectorated Sputum Sputum Culture - Preliminary 12/14/20 02:32 Blood Blood Culture - Final NO GROWTH AFTER 5 DAYS 12/14/20 02:32 Blood Blood Culture - Final NO GROWTH AFTER 5 DAYS Narrative: Blood pressure elevation noted. Lungs have anterior rhonchi but otherwise good air movement. Heart rate regular. Abdomen soft. No edema, alert, pleasant, oriented. ENT exam Clear. 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 insulin use status Diabetes mellitus complication status: with other specified complication Qualified Code(s): E11.69 - Type 2 diabetes mellitus with other specified complication Category: Medical Code(s): E11.9 - Type 2 diabetes mellitus without complications (4) Ischemic cardiomyopathy Status: Acute Category: Medical Code(s): I25.5 - Ischemic cardiomyopathy (5) Hypertensive urgency Status: Acute Category: Medical Code(s): I16.0 - Hypertensive urgency (6) Obesity (BMI 30-39.9) Status: Chronic Category: Medical Code(s): E66.9 - Obesity, unspecified (7) Anxiety Status: Chronic Category: Medical Code(s): F41.9 - Anxiety disorder, unspecified - Assessment and plan all Dx Assessment and Plan for all problems:: Good improvement with treatment of cardiomyopathy symptoms. If patient can tolerate nasal cannula through the night and into the day tomorrow we will consider discharge. Low-dose amlodipine for his high blood pressure. Continue ADÁN inhibitor and beta-seb for cardiomyopathy issues/blood pressure issues.
[2020-12-19 09:20] LABS: Lymphocytes % 4 % (10-50); Monocytes % 7 % (2-9); Neutrophils % 89 % (42-76); Nucleated Red Blood Cells 1; Platelet Estimate Normal; Total Cells Counted 100
[2020-12-19 16:53] LABS: POC Glucose,Bedside 280 (70-110)
[2020-12-19 18:00] LABS: POC Glucose,Bedside 349 (70-110)
[2020-12-19 21:01] LABS: POC Glucose,Bedside 354 (70-110)
[2020-12-20] VITALS (8 sets, daily range): BP systolic 167–178; BP diastolic 83–97; PULSE 69–148; RESP 19–25; TEMP 36.4–36.9; O2SAT 74–95; BMI 30.8
--- NOTE | 2020-12-20 03:51 | PC.NURSE ---
pt is AxOx4, has remained on 8L NC t/o shift with O2 sats 89-91%, has had no complaints of SOA or pain, has rested better this shift
[2020-12-20 05:59] LABS: POC Glucose,Bedside 266 (70-110)
[2020-12-20 07:14] LABS: Basophils % 0.3 % (0.1-2.0); Eosinophils % 0.3 % (0.1-12.0); Hematocrit 40.5 % (42.0-52.0); Hemoglobin 13.5 g/dL (14.1-18.0); Lymphocytes # 0.3 K/mm3 (0.7-4.5); Mean Corpuscular HGB Conc 33.3 g/dL (31.8-35.4); Mean Corpuscular Hemoglobin 27.3 pg (27.0-31.2); Mean Corpuscular Volume 81.9 fl (80-94); Mean Platelet Volume 7.4 fl (7.4-10.4); Monocytes # 0.4 K/mm3 (0.1-1.0); Monocytes % 6.3 % (1.7-9.3); Neutrophils # 5.4 K/mm3 (1.8-7.8); Neutrophils % 88.1 % (37.0-80.0); Platelet Count 198 K/mm3 (142-424); Red Blood Count 4.94 M/mm3 (4.60-6.20); Red Cell Distribution Width 13.4 % (11.5-17.5); White Blood Count 6.1 K/mm3 (4.8-10.8)
[2020-12-20 07:21] LABS: MANUAL DIFFERENTIAL MANUAL DIFFERENTIAL (MANUAL DIFF)
[2020-12-20 07:37] LABS: Blood Urea Nitrogen 38 mg/dl (9-20); Calcium 7.8 mg/dl (8.4-10.2); Carbon Dioxide 29 mmol/L (22.0-30.0); Chloride 100 mmol/L (98-107); Creatinine Clearance Estimated 130 mL/min (50-200); Estimated Glomerular Filt Rate 87 ml/min (>60); GFR (African American) 106 ML/MIN (>60); Glucose 298 mg/dl (74-100); Sodium 133 mmol/L (136-145)
--- NOTE | 2020-12-20 08:39 | HMH.DCSUM ---
General - General Admission date:: 12/14/20 Discharge date: 12/20/20 HPI HPI: 55-year-old male who is unvaccinated who over the past 3 to 4 days has had increasing problems with chest pain and shortness of air, came to the emergency department a couple of days ago and apparently was evaluated for cardiac issues and sent home, but became worse, coughing, congestion, lots of issues with dyspnea, came back to the emergency department this morning, found to have COVID-19, infiltrates on chest x-ray and a new oxygen requirement, admitted to hospital for further evaluation. He otherwise feels pretty well, eating well, no diarrhea, no rash. Hospital Course Hospital Course: Patient was admitted, placed in Covid isolation unit and oxygen therapy, fluids and vitamins and steroids were administered. Unfortunately patient worsened over the next couple of days and progressed to needing Vapotherm at significant flow rates. He also worsened in regards to his cardiomyopathy and treatment decisions were made to begin remdesivir and antibody therapy per pulmonary consultation. He was also started on antibiotics given his patchy infiltrate on chest x-ray. Blood cultures remain negative throughout his hospital course. Sputum cultures at the time of discharge showed gram-positive cocci in pairs and clusters. Of note nasal swab for MRSA screen this morning returned as positive. Patient has been on levofloxacin therapy through his hospitalization. Given patient's history of cardiomyopathy and worsening saturations CHF was treated with fluid restriction and diuresis with Lasix, he did very nicely with this and improved his oxygenation status and was able to come off Vapotherm. He was treated with BiPAP therapy for a couple of days which seemed to help his pulmonary and cardiac mechanics. His appetite improved, and he was able to be weaned off to a nasal cannula over the past 48 hours. Over the past 36 hours he is done well with 8 L flow rate oxygen by nasal cannula. He is eating well. Moore catheter was taken out this morning with good results and good urine flow. Exam has essentially gone back to his baseline. Plan will be to discharge home today. We will continue 1 more week of dexamethasone. He will finish up 5 days of levofloxacin. I will add Bactrim therapy for this MRSA swab in his nose although I am not sure how clinically significant it is given his nice improvement. He will have short-term follow-up in our office, obviously instructed to call back if oxygenation or functional status worsens. His blood pressure been markedly elevated throughout the hospital stay. I started amlodipine yesterday, I will continue this at home and we will monitor his blood pressure carefully at his appointment this week. Objective Vital signs: Temp Pulse Resp BP Pulse Ox 98.4 F 69 22 167/83 H 86 L 12/20/20 05:39 12/20/20 05:39 12/20/20 05:39 12/20/20 05:39 12/20/20 05:39 no acute distress, obese - *Routine HEENT Exam Head: Present: normocephalic Eye: Present: EOMI, PERRL ENT: Present: mucous membranes moist - *Routine Neck Exam Present: supple - *Routine Respiratory Exam Present: rhonchi - *Routine Cardiovascular Exam Present: RRR - *Routine Abdominal Exam Present: soft, normoactive bowel sounds. Absent: tenderness - *Routine Extremities Exam Absent: cyanosis, clubbing, edema - *Routine Skin Exam Present: warm. Absent: rash - Detailed Eye Exam Eyelids: Bilateral normal inspection Results Labs on day of discharge: Labs from last 24 hours 12/20/20 12/20/20 12/20/20 06:46 06:46 05:53 WBC 6.1 D RBC 4.94 Hgb 13.5 L Hct 40.5 L MCV 81.9 MCH 27.3 MCHC 33.3 RDW 13.4 Plt Count 198 MPV 7.4 Neut % (Auto) 88.1 H Lymph % (Auto) 5.0 L Reagan % (Auto) 6.3 Eos % (Auto) 0.3 Baso % (Auto) 0.3 Neut # (Auto) 5.4 Lymph # (Auto) 0.3 L Reagan # (Auto)
[2020-12-20 09:03] LABS: Lymphocytes % 7 % (10-50); Monocytes % 11 % (2-9); Neutrophils % 82 % (42-76); Total Cells Counted 100
[2020-12-20 09:04] LABS: Platelet Estimate Normal
== END 2020-12-20 12:55 | disposition home or self-care (01) | DRG 177 ==
LOC: ER 01:52 → 2ND 05:34 → ICU 06:21 → 2ND 12-17 14:14
PROVIDERS: Internal Medicine Adolescent Medicine; Internal Medicine Pulmonary Disease; Admitting Provider Emergency Medicine; Emergency Provider Emergency Medicine; PCP Nurse Practitioner Family; Visit Provider Internal Medicine Adolescent Medicine
DX: U07.1 COVID-19 (principal); J12.82 Pneumonia due to coronavirus disease 2019; J96.01 Acute respiratory failure with hypoxia; I25.10 Atherosclerotic heart disease of native coronary artery without angina pectoris; E11.9 Type 2 diabetes mellitus without complications; K21.9 Gastro-esophageal reflux disease without esophagitis; E78.5 Hyperlipidemia, unspecified; Z95.5 Presence of coronary angioplasty implant and graft; Z87.891 Personal history of nicotine dependence; I11.0 Hypertensive heart disease with heart failure; I50.9 Heart failure, unspecified; I25.2 Old myocardial infarction; I25.5 Ischemic cardiomyopathy; I16.0 Hypertensive urgency; F41.9 Anxiety disorder, unspecified; E66.9 Obesity, unspecified; Z95.1 Presence of aortocoronary bypass graft; Z68.30 Body mass index [BMI] 30.0-30.9, adult
CPT/HCPCS: 36415; 71045; 71046; 71275; 80048; 80053; 82728; 82803; 82962; 83605; 83735; 83880; 84436; 84443; 84484; 85007; 85025; 85651; 86140; 87040; 87070; 87081; 87205; 93005; 93306; 94640; 94660; 94760; 94761; 96365; 96375; 99282; 99284; C9803; J1956; J2405; Q9967; U0003; U0005

== ENCOUNTER 2020-12-31 11:31 | Emergency (ER) | payer MEDICARE, OTHER, SELFPAY ==
[2020-12-31] VITALS (7 sets, daily range): BP systolic 150–196; BP diastolic 76–100; PULSE 76–88; RESP 22–39; TEMP 37; O2SAT 91–95; BMI 32.4
--- NOTE | 2020-12-31 11:53 | ECG_ITS ---
APPROVED REPORT Exam: Resting ECG HR:83 bpm ECG Measurements Heart Rate 83 AXES DE 136 P 53 QRSd 94 QRS -41 QT 366 T 115 QTc 430 Conclusion Normal sinus rhythm Left axis deviation Inferior infarct, age undetermined ST & T wave abnormality, consider lateral ischemia Abnormal ECG Electronically signed by : Brian Mohr MD 01/01/2021 19:57:18
--- NOTE | 2020-12-31 11:59 | XR_ITS ---
PROCEDURE: XR CHEST PORTABLE CLINICAL HISTORY: SOA, recent covid COMPARISON: CR XR CHEST PORTABLE from 12/12/[address] ANGIO CHEST PE PROTOCOL from 12/14/2020 CR XR CHEST 2V from 12/14/2020 CR XR CHEST PORTABLE from 12/16/2020 FINDINGS: Prior CABG. Normal heart size. Multifocal bilateral pneumonia once again noted in both upper and lower lobes which has slightly improved. No evidence of pneumothorax. No acute bony abnormalities. IMPRESSION: Persistent but slightly improved multifocal bilateral pneumonia Dictated by: Samm Selby MD 12/31/2020 12:21 Samm Selby MD in [place] 12/31/2020 12:21
--- NOTE | 2020-12-31 12:11 | HMH.EDGENADL ---
ED Disposition Clinical Impression: Hypoxia, Pneumonia due to COVID-19 virus, Hyperglycemia Disposition: Home, Self-Care Condition on Discharge: Fair Instructions: DI for Hyperglycemia -- Adult, DI for COVID-19 (Suspected or Confirmed ) Additional Instructions: Continue to measure pulse ox at home. Oxygen may need to be increased back up to 6 to 8 L/min to keep pulse ox level at 90%. Decadron 4 mg twice a day for [address] Mohr in his office, call for appointment. Return to the emergency department if worsening shortness of breath or if blood sugar continues to run greater than 500. Prescriptions: dexAMETHasone [Decadron] 4 mg PO BID #6 tab [facility]: [id number] Azithromycin [Zithromax 250mg tab] 250 mg PO DIRECTED #6 tab Transmission Status: P[facility] to [id number] Referrals: Brian Mohr MD [Primary Care Provider] - - Critical Care Critical Care Time: No Attestation: On , the high probability of a clinically significant, sudden or life threatening deterioration of the following system(s) required my full and direct attention, intervention and personal management. The time I documented below is in addition to time spent performing reported procedures but includes the following listed in this critical care notation. Medical Decision Making - Jose Manuel Inquiry Pt receiving controlled substance: No Vital Signs: 12/31/20 11:32 12/31/20 12:30 12/31/20 13:15 Temperature 98.6 F Temperature Source Oral Pulse Rate 87 85 Pulse Rate [Right Radial] 85 Respiratory Rate 28 H 23 39 H Blood Pressure 158/86 H Blood Pressure [Right Arm] 150/83 H Blood Pressure Mean 111 Blood Pressure Mean [Right Arm] 105 Blood Pressure Source [Right Arm] Automatic Cuff Blood Pressure Position [Right Arm] Sitting 02 Sat by Pulse Oximetry 95 95 92 L Oxygen Delivery Method Nasal Cannula Oxygen Flow Rate (LPM) 8 12/31/20 13:30 12/31/20 14:01 12/31/20 14:30 Temperature Temperature Source Pulse Rate 81 76 83 Pulse Rate [Right Radial] Respiratory Rate 28 H 24 24 Blood Pressure 196/97 H 153/76 H 171/100 H Blood Pressure [Right Arm] Blood Pressure Mean 124 128 123 Blood Pressure Mean [Right Arm] Blood Pressure Source [Right Arm] Blood Pressure Position [Right Arm] 02 Sat by Pulse Oximetry 92 L 91 L 91 L Oxygen Delivery Method Nasal Cannula Nasal Cannula Oxygen Flow Rate (LPM) 6 6 - Lab Data Lab Results 12/31/20 11:50: WBC 7.9, RBC 4.52 L, Hgb 12.6 L, Hct 37.6 L, MCV 83.1, MCH 27.8, MCHC 33.5, RDW 14.6, Plt Count 271, MPV 7.6, Neut % (Auto) 86.5 H, Lymph % (Auto) 7.9 L, [place] % (Auto) 3.7, Eos % (Auto) 1.3, Baso % (Auto) 0.7, Neut # (Auto) 6.8, Lymph # (Auto) 0.6 L, [place] # (Auto) 0.3, Eos # (Auto) 0.1, Baso # (Auto) 0.1, Total Counted 100, Neutrophils % (Manual) 85 H, Lymphocytes % (Manual) 11, Monocytes % (Manual) 4, Platelet Estimate Normal, RBC Morphology Normal 12/31/20 11:50: Sodium 130 L, Potassium 4.7, Chloride 94 L, Carbon Dioxide 31 H, Anion Gap 9.7, BUN 27 H, Creatinine 0.80, Estimated Creat Clear 133, Estimated GFR 100, Est GFR ( Amer) 121, Glucose 536 H*, Calcium 8.5, Total Bilirubin 0.4, AST 31, ALT 26, Alkaline Phosphatase 99, Total Protein 6.1 L, Albumin 2.8 L, Globulin 3.3 H, Albumin/Globulin Ratio 0.8 L 12/31/20 11:50: Lactate 1.0 12/31/20 11:50: Troponin I < 0.01 12/31/20 11:50: NT-Pro-B Natriuret Pep 2690 H 12/31/20 12:17: Specimen Source Right radial, O2 % Room air, ABG pH 7.45, ABG pCO2 39.8, ABG pO2 60.8 L, ABG HCO3 27.0 H, ABG Total CO2 28.3 H, ABG O2 Saturation 90, ABG Base Excess 3.1 H, Samm Test Acceptable 12/31/20 14:18: POC Glucose 480 H* Result diagrams: 12/31/20 11:50 12/31/20 11:50 Orders (Tests/Meds): ED MEDICATIONS Discontinued Medications Generic Name Dose Route Start Last Admin Trade Name Freq PRN Reason Stop Dose Admin Insulin Human Lispro 20 unit 12/31/20 12:26 0
[2020-12-31 12:12] LABS: Basophils # 0.1 K/mm3 (0-0.2); Basophils % 0.7 % (0.1-2.0); Eosinophils # 0.1 K/mm3 (0.0-0.4); Eosinophils % 1.3 % (0.1-12.0); Hematocrit 37.6 % (42.0-52.0); Hemoglobin 12.6 g/dL (14.1-18.0); Lymphocytes # 0.6 K/mm3 (0.7-4.5); Lymphocytes % 7.9 % (10-50); Mean Corpuscular HGB Conc 33.5 g/dL (31.8-35.4); Mean Corpuscular Hemoglobin 27.8 pg (27.0-31.2); Mean Corpuscular Volume 83.1 fl (80-94); Mean Platelet Volume 7.6 fl (7.4-10.4); Monocytes # 0.3 K/mm3 (0.1-1.0); Monocytes % 3.7 % (1.7-9.3); Neutrophils # 6.8 K/mm3 (1.8-7.8); Neutrophils % 86.5 % (37.0-80.0); Platelet Count 271 K/mm3 (142-424); Red Blood Count 4.52 M/mm3 (4.60-6.20); Red Cell Distribution Width 14.6 % (11.5-17.5); White Blood Count 7.9 K/mm3 (4.8-10.8)
--- NOTE | 2020-12-31 12:13 | PC.NURSE ---
rad at BS for portable xray
[2020-12-31 12:14] LABS: Chloride 94 mmol/L (98-107); Potassium 4.7 mmoL/L (3.5-5.1); Sodium 130 mmol/L (136-145)
[2020-12-31 12:15] LABS: MANUAL DIFFERENTIAL MANUAL DIFFERENTIAL (MANUAL DIFF)
[2020-12-31 12:17] LABS: Alanine Aminotransferase 26 U/L (12-78); Albumin Level 2.8 g/dl (3.5-5.0); Albumin/Globulin Ratio 0.8 (1.1-1.8); Alkaline Phosphatase 99 U/L (38-126); Anion Gap 9.7 mEq/L (5-15); Aspartate Amino Transferase 31 U/L (17-59); Bilirubin,Total 0.4 mg/dl (0.2-1.3); Blood Urea Nitrogen 27 mg/dl (9-20); Carbon Dioxide 31 mmol/L (22.0-30.0); Creatinine Clearance Estimated 133 mL/min (50-200); Estimated Glomerular Filt Rate 100 ml/min (>60); GFR (African American) 121 ML/MIN (>60); Globulin 3.3 g/dL (1.3-3.2); Total Protein,Serum 6.1 g/dl (6.3-8.2)
--- NOTE | 2020-12-31 12:17 | CT_ITS ---
PROCEDURE: CT ANGIO CHEST PE PROTOCOL CLINCIAL INDICATION: SOA, recent covid 19 COMPARISON: CT CT ANGIO CHEST PE PROTOCOL from 12/14/2020 TECHNIQUE: IV Contrast: 70ML Isovue 370 Axial images obtained with sagittal and coronal reformats. All CT scans at the facility use one or more dose reduction, viz: automated exposure control, ma/kV adjustment per patient size (including targeted exams where dose is matched to indication, i.e. head), or iterative reconstruction technique. FINDINGS: HEART AND MEDIASTINAL STRUCTURES: No evidence of pulmonary embolus, aortic aneurysm, or aortic dissection.. There is cardiomegaly. Scattered small mediastinal lymph nodes are present and appears slightly less prominent. The stranding of the anterior mediastinal fat has shown some improvement. Coronary artery calcifications and/or stents are noted. No pericardial effusion. Prior CABG LUNGS AND PLEURAL SPACES: There has been interval progression of diffuse bilateral ground-glass infiltrates. There remains bilateral areas of consolidation which has shown some improvement in the posterior aspect of the left upper lobe and superior segment left lower lobe.. The bilateral pleural effusions have improved. No evidence of pneumothorax. BONY STRUCTURES: No acute bony abnormalities apparent. UPPER ABDOMEN: Suspected cholelithiasis. Ill-defined 3.4 cm hypodense lesion in the posterior aspect of the spleen ADDITIONAL FINDINGS: No other significant abnormalities. IMPRESSION: 1. No evidence of pulmonary embolus. 2. Cardiomegaly. Prior CABG. 3. There is diffuse bilateral ground-glass attenuation which has progressed since the previous exam. Consolidation has progressed in the right middle lobe and right lower lobe and lingula but has shown improvement in the superior segment of the left lower lobe and the posterior aspect of the left upper lobe. Covid19 pneumonia is considered. Ground-glass attenuation could also be related to pulmonary edema. 4. Hypodensity of the spleen posteriorly not readily apparent on the previous study possibly due to an area of splenic infarct. Dictated by: Samm Selby MD 12/31/2020 13:31 Samm Selby MD in [place] 12/31/2020 13:31
--- NOTE | 2020-12-31 12:17 | PC.NURSE ---
MARIEL SAMUEL at
[2020-12-31 12:18] LABS: Calcium 8.5 mg/dl (8.4-10.2)
--- NOTE | 2020-12-31 12:18 | PC.NURSE ---
notified RT of abg order
[2020-12-31 12:22] LABS: Glucose 536 mg/dl (74-100)
--- NOTE | 2020-12-31 12:22 | PC.NURSE ---
pt o2 increased to 7L per NC at this time r/t sats dropped to 85% on 6L will continue to monitor
--- NOTE | 2020-12-31 12:23 | PC.NURSE ---
notified ER of critical glucose, called by lab, pt name and verified
[2020-12-31 12:33] LABS: Lymphocytes % 11 % (10-50); Monocytes % 4 % (2-9); Neutrophils % 85 % (42-76); Platelet Estimate Normal; RBC Morphology Normal; Total Cells Counted 100
[2020-12-31 12:48] LABS: ABG Base Excess 3.1 mmol/L (-2.4-2.3); ABG Oxygen Saturation 90 % (90-100); ABG PCO2 39.8 mmhg (35.0-45.0); ABG PH 7.45 mmol/L (7.35-7.45); ABG PO2 60.8 mmhg (80-100); ABG TCO2 28.3 mmhg (23-27); Allen's Test Acceptable; Oxygen ROOM AIR %; Source Right Radial
--- NOTE | 2020-12-31 12:53 | PC.NURSE ---
pt to Ct
[2020-12-31 13:58] LABS: NT Pro Brain Natriuretic Pep. 2690 pg/mL (0-125)
[2020-12-31 14:02] LABS: Troponin I < 0.01 ng/ml (0.00-0.034)
--- NOTE | 2020-12-31 14:11 | PC.NURSE ---
MARIEL SAMUEL speaking with Dr. carias
--- NOTE | 2020-12-31 14:20 | PC.NURSE ---
Glucose check was 480, pt sitting up in bed, states he looks and sounds better
[2020-12-31 14:27] LABS: POC Glucose,Bedside 480 (70-110)
--- NOTE | 2020-12-31 14:40 | PC.NURSE ---
Dr Ulrich speaking with Dr Mohr again after speaking with pts .
== END 2020-12-31 15:33 | disposition home or self-care (01) ==
PROVIDERS: Emergency Provider Emergency Medicine; PCP Internal Medicine Adolescent Medicine
DX: U07.1 COVID-19 (principal); J12.82 Pneumonia due to coronavirus disease 2019; R09.02 Hypoxemia; E11.65 Type 2 diabetes mellitus with hyperglycemia; I25.10 Atherosclerotic heart disease of native coronary artery without angina pectoris; K21.9 Gastro-esophageal reflux disease without esophagitis; E78.5 Hyperlipidemia, unspecified; I10 Essential (primary) hypertension; I25.2 Old myocardial infarction; Z87.891 Personal history of nicotine dependence; Z79.899 Other long term (current) drug therapy; Z79.84 Long term (current) use of oral hypoglycemic drugs
CPT/HCPCS: 71045; 71275; 80053; 82803; 82962; 83605; 83880; 84484; 85007; 85025; 87040; 93005; 96372; 96374; 99284; Q9967

== ENCOUNTER 2021-01-07 09:32 | Inpatient (IN) | payer MEDICARE, OTHER, SELFPAY ==
[2021-01-07] VITALS (16 sets, daily range): BP systolic 147–191; BP diastolic 85–114; PULSE 97–110; RESP 19–50; TEMP 36.9–37.7; O2SAT 70–98; BMI 28.7; BMI 286937.2
--- NOTE | 2021-01-07 09:33 | XR_ITS ---
PROCEDURE: XR CHEST PORTABLE CLINICAL HISTORY: sob COMPARISON: CR XR CHEST 2V from 12/14/2020 CR XR CHEST PORTABLE from 12/16/[address] ANGIO CHEST PE PROTOCOL from 12/31/2020 CR XR CHEST PORTABLE from 12/31/2020 FINDINGS: Significant bilateral ill-defined opacities are again seen consistent with acute pneumonia. This is a slightly poor inspiration tending to accentuate the findings lung elizabeth. This could possibly explain more pronounced opacity left lateral chest although there could be interval progression of from yesterday's study stable borderline cardiomegaly is again noted with sternal wire sutures seen. There is no pneumothorax. IMPRESSION: Prominent diffuse bilateral ill-defined pneumonic infiltrates possibly slightly worse left lateral chest this could be affected by the degree of inspiration as noted above Dictated by: Dr. Juan Miguel Joseph MD 01/07/2021 11:03 Dr. Juan Miguel Joseph MD in [place] 01/07/2021 11:03
[2021-01-07 09:37] LABS: ABG Base Excess 1.5 mmol/L (-2.4-2.3); ABG HCO3 25.7 mmhg (22.0-26.0); ABG Oxygen Saturation 87 % (90-100); ABG PCO2 39.5 mmhg (35.0-45.0); ABG PH 7.43 mmol/L (7.35-7.45); ABG PO2 52.2 mmhg (80-100)
--- NOTE | 2021-01-07 09:48 | ECG_ITS ---
APPROVED REPORT Exam: Resting ECG HR:108 bpm ECG Measurements Heart Rate 108 AXES ME 134 P 38 QRSd 94 QRS -37 QT 338 T 93 QTc 452 Conclusion Sinus tachycardia with occasional premature ventricular complexes Possible Left atrial enlargement Left axis deviation Inferior infarct, age undetermined Possible Anterior infarct, age undetermined ST & T wave abnormality, consider lateral ischemia Abnormal ECG Electronically signed by : Brian Mohr MD 01/07/2021 17:48:17
[2021-01-07 09:59] LABS: Basophils # 0.1 K/mm3 (0-0.2); Basophils % 0.6 % (0.1-2.0); Eosinophils # 0.3 K/mm3 (0.0-0.4); Eosinophils % 2.9 % (0.1-12.0); Hematocrit 40.7 % (42.0-52.0); Hemoglobin 13.6 g/dL (14.1-18.0); Lymphocytes # 0.9 K/mm3 (0.7-4.5); Lymphocytes % 9.4 % (10-50); Mean Corpuscular HGB Conc 33.4 g/dL (31.8-35.4); Mean Corpuscular Hemoglobin 27.6 pg (27.0-31.2); Mean Corpuscular Volume 82.6 fl (80-94); Mean Platelet Volume 8.6 fl (7.4-10.4); Monocytes # 0.5 K/mm3 (0.1-1.0); Monocytes % 4.6 % (1.7-9.3); Neutrophils # 8.1 K/mm3 (1.8-7.8); Neutrophils % 82.5 % (37.0-80.0); Platelet Count 225 K/mm3 (142-424); Red Blood Count 4.93 M/mm3 (4.60-6.20); Red Cell Distribution Width 15.2 % (11.5-17.5); White Blood Count 9.9 K/mm3 (4.8-10.8)
[2021-01-07 10:08] LABS: Chloride 94 mmol/L (98-107); Potassium 4.1 mmoL/L (3.5-5.1); Sodium 129 mmol/L (136-145)
[2021-01-07 10:11] LABS: Alanine Aminotransferase 16 U/L (12-78); Albumin Level 2.9 g/dl (3.5-5.0); Albumin/Globulin Ratio 0.7 (1.1-1.8); Alkaline Phosphatase 101 U/L (38-126); Anion Gap 8.1 mEq/L (5-15); Aspartate Amino Transferase 32 U/L (17-59); Bilirubin,Total 0.7 mg/dl (0.2-1.3); Blood Urea Nitrogen 17 mg/dl (9-20); Carbon Dioxide 31 mmol/L (22.0-30.0); Estimated Glomerular Filt Rate 100 ml/min (>60); GFR (African American) 121 ML/MIN (>60); Globulin 3.9 g/dL (1.3-3.2); Total Protein,Serum 6.8 g/dl (6.3-8.2)
[2021-01-07 10:12] LABS: Calcium 8.2 mg/dl (8.4-10.2); Glucose 200 mg/dl (74-100); Lactic Acid 1.5 mmol/L (0.7-2.1)
--- NOTE | 2021-01-07 10:20 | CT_ITS ---
PROCEDURE: CT ANGIO CHEST PE PROTOCOL CLINCIAL INDICATION: Concern for PE, Covid19 positive, recent per [place] distress COMPARISON: No exams were available for comparison TECHNIQUE: IV Contrast: 70ML Isovue 370 Axial images obtained with sagittal and coronal reformats. All CT scans at the facility use one or more dose reduction, viz: automated exposure control, ma/kV adjustment per patient size (including targeted exams where dose is matched to indication, i.e. head), or iterative reconstruction technique. FINDINGS: HEART AND MEDIASTINAL STRUCTURES: Moderate generalized cardiomegaly with left ventricular prominence. There is fairly good vascular opacification and I see no definite CT evidence of pulmonary emboli though detail is somewhat degraded by the diffuse ill-defined bilateral pneumonic infiltrates LUNGS AND PLEURAL SPACES: Prominent diffuse bilateral ill-defined pneumonic infiltrates more prominent right perihilar region and right lower lobe than left. Diffuse bilateral air bronchograms are noted. There is no significant pleural fluid on either side. BONY STRUCTURES: No acute bony abnormalities apparent. There are sternal wire sutures noted. UPPER ABDOMEN: Somewhat hydropic appearing gallbladder without definite gallstones seen ADDITIONAL FINDINGS: No other significant abnormalities. IMPRESSION: No definite evidence of pulmonary emboli, vascular detail somewhat degraded by the prominent diffuse bilateral pneumonic infiltrates Dictated by: Dr. Juan Miguel Joseph MD 01/07/2021 11:13 Dr. Juan Miguel Joseph MD in [place] 01/07/2021 11:13
[2021-01-07 10:25] LABS: Allen's Test Acceptable; Oxygen NRB %; Source Right Radial
[2021-01-07 10:25] LABS: Troponin I < 0.01 ng/ml (0.00-0.034)
--- NOTE | 2021-01-07 10:27 | HMH.EDGENADL ---
ED Disposition Clinical Impression: Acute respiratory failure due to COVID-19 Disposition: Home, Self-Care Condition on Discharge: Critical - Critical Care Critical Care Time: Yes Attestation: On 01/07/21, the high probability of a clinically significant, sudden or life threatening deterioration of the following system(s) required my full and direct attention, intervention and personal management. The time I documented below is in addition to time spent performing reported procedures but includes the following listed in this critical care notation. Total Critical Care Time: 45 Vital system(s) involved:: Respiratory Failure My critical care processes included: Assessment & monitoring of V/S, Data Review/Interpretation, Coordinating Care, Medication Orders and management, Documentation Medical Decision Making - Medical Records Medical records reviewed: Yes: I reviewed the patient's medical records. - Jose Manuel Inquiry Pt receiving controlled substance: No Vital Signs: 01/07/21 09:33 01/07/21 09:50 01/07/21 10:01 Temperature 98.4 F Temperature Source Oral Pulse Rate 105 H 110 H Pulse Rate [Right] 106 H Respiratory Rate 50 H 50 H 42 H Blood Pressure 172/93 H 169/86 H Blood Pressure [Right Arm] 191/100 H Blood Pressure Mean 119 125 Blood Pressure Mean [Right Arm] 130 Blood Pressure Source [Right Arm] Automatic Cuff Blood Pressure Position [Right Arm] Sitting 02 Sat by Pulse Oximetry 70 L 92 L 95 Oxygen Delivery Method Non-Rebreather 01/07/21 10:31 01/07/21 10:45 01/07/21 11:08 Temperature Temperature Source Pulse Rate 104 H 99 H 106 H Pulse Rate [Right] Respiratory Rate 44 H 41 H 38 H Blood Pressure 166/87 H 161/91 H 169/85 H Blood Pressure [Right Arm] Blood Pressure Mean 113 Blood Pressure Mean [Right Arm] Blood Pressure Source [Right Arm] Blood Pressure Position [Right Arm] 02 Sat by Pulse Oximetry 95 92 L 92 L Oxygen Delivery Method Vapotherm Vapotherm 01/07/21 11:30 01/07/21 12:00 01/07/21 12:31 Temperature Temperature Source Pulse Rate 102 H 101 H 110 H Pulse Rate [Right] Respiratory Rate 25 H 48 H 32 H Blood Pressure 166/89 H 176/85 H 181/114 H Blood Pressure [Right Arm] Blood Pressure Mean 114 136 Blood Pressure Mean [Right Arm] Blood Pressure Source [Right Arm] Blood Pressure Position [Right Arm] 02 Sat by Pulse Oximetry 94 L 90 L 94 L Oxygen Delivery Method - Lab Data Lab Results 01/07/21 09:35: Specimen Source Right radial, O2 % Nrb, ABG pH 7.43, ABG pCO2 39.5, ABG pO2 52.2 L, ABG HCO3 25.7, ABG Total CO2 27.0, ABG O2 Saturation 87 L*, ABG Base Excess 1.5, Samm Test Acceptable 01/07/21 09:42: WBC 9.9, RBC 4.93, Hgb 13.6 L, Hct 40.7 L, MCV 82.6, MCH 27.6, MCHC 33.4, RDW 15.2, Plt Count 225, MPV 8.6, Neut % (Auto) 82.5 H, Lymph % (Auto) 9.4 L, [place] % (Auto) 4.6, Eos % (Auto) 2.9, Baso % (Auto) 0.6, Neut # (Auto) 8.1 H, Lymph # (Auto) 0.9, [place] # (Auto) 0.5, Eos # (Auto) 0.3, Baso # (Auto) 0.1 01/07/21 09:42: Sodium 129 L, Potassium 4.1, Chloride 94 L, Carbon Dioxide 31 H, Anion Gap 8.1, BUN 17, Creatinine 0.80, Estimated GFR 100, Est GFR ( Amer) 121, Glucose 200 H, Calcium 8.2 L, Total Bilirubin 0.7, AST 32, ALT 16, Alkaline Phosphatase 101, Troponin I < 0.01, Total Protein 6.8, Albumin 2.9 L, Globulin 3.9 H, Albumin/Globulin Ratio 0.7 L 01/07/21 09:42: Lactate 1.5 01/07/21 09:47: SARS-CoV-2 (PCR) Detected A, Influenza A Untype (PCR) Not detected, Influenza Type B (PCR) Not detected Result diagrams: 01/07/21 09:42 01/07/21 09:42 Orders (Tests/Meds): ED MEDICATIONS Generic Name Dose Route Start Last Admin Trade Name Freq PRN Reason Stop Dose Admin Enoxaparin Sodium 90 mg 01/07/21 11:45 Enoxaparin 100mg/Ml Syringe SQ 02/06/21 11:44 BID DANNIELLE Cefepime HCl 2 gm/ Sodium 100 mls @ 200 mls/hr 01/07/21 10:30 01/07/21 11:00 Chloride IV 01/21/21 10:29 200 mls/hr Q8H DANNIELLE Administration [employer]
[2021-01-07 10:31] LABS: Influenza A, PCR Not Detected (NotDetected); Influenza B, PCR Not Detected (NotDetected)
--- NOTE | 2021-01-07 10:34 | PC.NURSE ---
Pt arrives per EMS with SOA and sats in the 70's on NRB 15 lpm. IV access immediately obtained and labs drawn. PT breathing approx. 56 times a min. Advises he is getting tired. MD at bedside upon pt arrival. ABG obtained and pt put on vapotherm. Sats increased to 90's. PT advising it feels a little easier to breath at this time.
--- NOTE | 2021-01-07 10:47 | PC.NURSE ---
PT placed on NRB 15lpm and taken to CT
--- NOTE | 2021-01-07 10:47 | PC.NURSE ---
Notified pharmacy needed antibiotics
[2021-01-07 10:56] LABS: Coronavirus 19, PCR Detected (NotDetected)
--- NOTE | 2021-01-07 10:57 | HMH.PHACONS ---
- Pharmacy Consult Date: 01/07/21 Time: 10:57 Referring provider: DR. MAN Reason for Consult:: VANCOMYCIN DOSING CONSULT Allergies and ADEs:: Allergies Allergy/AdvReac Type Severity Reaction Status Date / Time No Known Allergies Allergy Verified 10/06/20 13:39 Home Medications:: Home Medications Medication Instructions Recorded Confirmed Type Aspirin 81 mg PO DAILY 09/21/17 12/14/20 History carvedilol 25 mg tablet 25 mg PO BID tab 08/28/19 12/14/20 History insulin glargine 100 unit/mL (3 32 unit SQ HS ml 08/28/19 12/14/20 History mL) subcutaneous pen metformin 500 mg tablet 500 mg PO BID tab 08/28/19 12/14/20 History sertraline 100 mg tablet 200 mg PO DAILY tab 08/28/19 12/14/20 History Dulaglutide [Trulicity] 0.75 mg SQ WEEKLY 03/28/20 12/14/20 History niacin 500 mg tablet 500 mg PO DAILY 04/08/20 12/14/20 History nitroglycerin 0.4 mg sublingual 0.4 mg SUBLINGUAL Q5M PRN #20 tab 06/16/20 12/14/20 Rx tablet Atorvastatin Calcium [Lipitor 80mg 80 mg PO DAILY 12/14/20 12/14/20 History Tablet*] Gabapentin 600 mg PO BID 12/14/20 12/14/20 History lisinopriL [Lisinopril] 40 mg PO BID 12/14/20 12/14/20 History Amlodipine Besylate [Norvasc 5mg 5 mg PO DAILY #30 tab 12/20/20 Rx tablet] Ascorbic Acid [Vitamin C 500mg 500 mg PO QID #120 tab 12/20/20 Rx tablet] Aspirin [Aspirin 81mg chewable 81 mg PO DAILY 12/20/20 Rx tab] Sulfamethoxazole/Trimethoprim 1 each PO BID #14 tab 12/20/20 Rx [Bactrim DS tablet] dexAMETHasone [Decadron 4mg tablet] 4 mg PO BID #14 tab 12/20/20 Rx levoFLOXacin [Levaquin 500mg 500 mg PO DAILY #5 tab 12/20/20 Rx tab] Azithromycin [Zithromax 250mg 250 mg PO DIRECTED #6 tab 12/31/20 Rx tab] dexAMETHasone [Decadron] 4 mg PO BID #6 tab 12/31/20 Rx Height: 1.78 m Weight: 90.718 kg Laboratory Results:: Laboratory Results - last 24 hr 01/07/21 09:35: Specimen Source Right radial, O2 % Nrb, ABG pH 7.43, ABG pCO2 39.5, ABG pO2 52.2 L, ABG HCO3 25.7, ABG Total CO2 27.0, ABG O2 Saturation 87 L*, ABG Base Excess 1.5, Samm Test Acceptable 01/07/21 09:42: WBC 9.9, RBC 4.93, Hgb 13.6 L, Hct 40.7 L, MCV 82.6, MCH 27.6, MCHC 33.4, RDW 15.2, Plt Count 225, MPV 8.6, Neut % (Auto) 82.5 H, Lymph % (Auto) 9.4 L, Bacon % (Auto) 4.6, Eos % (Auto) 2.9, Baso % (Auto) 0.6, Neut # (Auto) 8.1 H, Lymph # (Auto) 0.9, Bacon # (Auto) 0.5, Eos # (Auto) 0.3, Baso # (Auto) 0.1 01/07/21 09:42: Sodium 129 L, Potassium 4.1, Chloride 94 L, Carbon Dioxide 31 H, Anion Gap 8.1, BUN 17, Creatinine 0.80, Estimated GFR 100, Est GFR ( Amer) 121, Glucose 200 H, Calcium 8.2 L, Total Bilirubin 0.7, AST 32, ALT 16, Alkaline Phosphatase 101, Troponin I < 0.01, Total Protein 6.8, Albumin 2.9 L, Globulin 3.9 H, Albumin/Globulin Ratio 0.7 L 01/07/21 09:42: Lactate 1.5 01/07/21 09:47: SARS-CoV-2 (PCR) Detected A, Influenza A Untype (PCR) Not detected, Influenza Type B (PCR) Not detected Medical History: Reports:: Atherosclerotic Heart Disease, Congestive Heart Failure, Coronary Artery Disease, Diabetes Mellitus Type 2, Gastroesophageal Reflux Disease(GERD), Hyperlipidemia, Hypertension, Myocardial Infarction Denies:: Cancer, Diabetes Mellitus Type 1, Internal Pacemaker, MRSA, Seizures Assessment and Plan - Assessment and plan all Dx Assessment and Plan for all problems:: Subjective and Objective Data: This is a 55 year old male patient with PRIOR COVID PNA. Measured serum creatinine (SCr) is 0.8 mg/dL. Given a height of 178 cm and a weight of 90.718 kg, estimated creatinine clearance is 132.3 mL/min (using the CrCl TBW body weight). The following targets were selected for dosing: - Desired AUC = 500 mcg*h/mL - Desired Cmax = 35 mcg/mL - Desired Cmin = 12.5 mcg/mL - Vd coefficient = 0.65 L/kg - Ke equation = CrCl*0.43186+0.0044 Calculations: Based on above, the following are calculated parameters for AUC-based vancomycin dosing in this patient: - Calculated Vd = 5
--- NOTE | 2021-01-07 11:41 | PC.NURSE ---
speaking with Dr. Mohr
--- NOTE | 2021-01-07 11:44 | PC.NURSE ---
Notified care management of admission
--- NOTE | 2021-01-07 11:46 | CA_ITS ---
APPROVED REPORT Bilateral Lower Extremity Venous Study for DVT. Esl Instructor: CT Indications Shortness of breath Concern for DVT, unable to see if PE on CT, covid + 12/14/20 Vein Imaging CFV (R): compressive, spontaneous, phasic, augmentation SFJ (R): compressive, spontaneous, phasic, augmentation FEM (R): compressive, spontaneous, phasic, augmentation POP (R): compressive, spontaneous, phasic, augmentation DFV (R): compressive, spontaneous, phasic, augmentation PTV (R): compressive, spontaneous, phasic, augmentation GSV (R): Not Visualized SSV (R): Not Visualized Peroneals (R):Partially Compressible GAS (R): compressive, spontaneous, phasic, augmentation CFV (L): compressive, spontaneous, phasic, augmentation SFJ (L): compressive, spontaneous, phasic, augmentation FEM (L): compressive, spontaneous, phasic, augmentation POP (L): compressive, spontaneous, phasic, augmentation DFV (L): compressive, spontaneous, phasic, augmentation PTV (L): compressive, spontaneous, phasic, augmentation GSV (L): compressive, spontaneous, phasic, augmentation SSV (L): Not Visualized Peroneals (L):compressive, spontaneous, phasic, augmentation GAS (L): compressive, spontaneous, phasic, augmentation Findings RLE + for DVT in peroneal vein, other vessels appear normal, R GSV harvested for CABG. LLE - for DVT/SVT. Conclusion RLE + for DVT in peroneal vein, other vessels appear normal, R GSV harvested for CABG. LLE - for DVT/SVT. Critical Notification Critical Value: Yes Date: 01/07/2021 Time: 13:12 Other Discipline: Fortunato OROZCO Report Read Back Electronically signed by : Samm Selby MD 01/12/2021 08:48:11
--- NOTE | 2021-01-07 11:59 | PC.NURSE ---
Spoke with and updated her on POC
--- NOTE | 2021-01-07 12:24 | PC.NURSE ---
CV at bedside doing LE dopplers
--- NOTE | 2021-01-07 12:33 | PC.NURSE ---
Pt voided 750ml at this time
--- NOTE | 2021-01-07 13:33 | PC.NURSE ---
Called report to Ceci
--- NOTE | 2021-01-07 13:35 | PC.NURSE ---
Notified resp pt was ready to go to unit.
--- NOTE | 2021-01-07 13:37 | HMH.PHAINT ---
MEDICATION RECONCILIATION COMPLETE USING SURESCRIPTS AND PREVIOUS DISCHARGE PAPERWORK
--- NOTE | 2021-01-07 14:01 | P.CONPHA_ITS ---
[facility] Pharmacy VTE Monitoring - Patient Demographics Admission date: 01/07/21 Report Date: 01/07/21 Time: 14:01 Allergies/Adverse Reactions: Patient Allergies No Known Allergies Allergy (Verified 10/06/20 13:39) Height: 1.78 m Weight: 90.718 kg Patient Problems: Current Active Problems Acute respiratory failure due to COVID-19 (Acute) - VTE Risk Labs: VTE Related Lab Results Hgb 13.6 g/dL (14.1-18.0) L 01/07/21 09:42 Hct 40.7 % (42.0-52.0) L 01/07/21 09:42 Plt Count 225 K/mm3 (142-424) 01/07/21 09:42 BUN 17 mg/dl (9-20) 01/07/21 09:42 Creatinine 0.80 mg/dl (0.66-1.25) 01/07/21 09:42 Clinical Trial Participant: No - Prophylaxis VTE Prophylaxis Ordered?: Yes Types of VTE Prophylaxis: TEDS Knee High, Pharmacological Pharmacologic Type: Enoxaparin
[2021-01-07 15:03] LABS: Troponin I 0.01 ng/ml (0.00-0.034)
[2021-01-07 15:58] LABS: Microscopic, Urine URINE MICROSCOPIC (MICROSCOPIC)
[2021-01-07 16:37] LABS: Appearance,Urine SL CLOUDY (Clear); Bilirubin,Urine Negative (Negative); Blood, Urine 1+ (Negative); Color,Urine YELLOW (Yellow); Glucose,Urine (UA) 1+ (Negative); Ketones,Urine Negative (Negative); Leukocyte Esterase,Urine Negative (Negative); Nitrate,Urine Negative (Negative); PH,Urine 6.5 (5.0-8.5); Protein,Urine 2+ (Negative); Urobilinogen,Urine 0.2 EU/dl (0.2)
--- NOTE | 2021-01-07 16:44 | PC.NURSE ---
Vancomycin brought up from ER with patient given as per discontinued order.
[2021-01-07 17:30] LABS: Bacteria,Urine Trace /lpf; RBC,Urine Occasional #/hpf (0-3); Squamous Epithelial Cell,Urine Occasional #/hpf (0-5)
--- NOTE | 2021-01-07 17:40 | HMH.HP ---
*Admission Date: 01/07/21 *Chief complaint: Dyspne, and chest pain *History of present illness: Patient is a 55-year-old male presents the ED today with hypoxia at home. Patient is unwell appearing on initial evaluation, brought in by EMS for severe hypoxia with oxygen saturation in the mid 60s. Placed on a high flow nasal cannula with FiO2 of 100% and 40 L/min, has been able to have consistent oxygen saturation above 92%. Not needed to progress to further noninvasive positive pressure ventilation at this time, chest x-ray is obtained with diffuse lower zone bilateral groundglass opacity, this is mildly worse than his prior x-ray when reviewed, this could be consistent with an overlying pneumonia given recent hospitalization patient was started on broad-spectrum antibiotics blood cultures were obtained. All the patient's syndrome could be consistent with a diagnosis of sepsis I do not believe that additional fluid in this patient will be of help and could possibly be of harm, reversible administer for the milligrams of IV Lasix for diuresis to attempt proved lung function. CT pulmonary embolism study obtained, an independent evaluation did not visualize any pneumothorax, there is pneumomediastinum, no saddle pulmonary embolus, and will await radiology interpretation for further evaluation. Patient has bilateral diffuse groundglass opacities with posterior consolidation. Discussed with patient's family his current situation, and have discussed intubation status with the patient, patient wants to wait for his to arrive. CT pulmonary embolism does not show any evidence of pulmonary embolism, however it is unable to visualize the pulmonary arteries in the posterior lobes of the lung secondary to severe consolidation. Has been stable on his high flow nasal cannula requirement thus far, will be admitted to our intensive care unit. Above note per ER physician: Backstory is that patient was diagnosed with Covid in December. He spent approximately 1 week in the hospital, on significant oxygen support over was not intubated. We aggressively diurese the patient and treated cardiomyopathy which seemed to improve him and he was able to be transitioned to home on nasal cannula oxygen. He initially did well but according to family members has not been doing his respiratory exercises, and has not been as aggressive with moving around and spirometry as it could have been and he has been basically lying flat on his back at home. Became suddenly short of air last night into this morning and was brought to the emergency department where issues were diagnosed as above. Briefly, work-up in the ER was as above. I requested a Doppler of his legs which is positive for DVT. [facility] History I have reviewed the patient's past medical history: Yes Medical History: Reports:: Atherosclerotic Heart Disease, Congestive Heart Failure, Coronary Artery Disease, Diabetes Mellitus Type 2, Gastroesophageal Reflux Disease(GERD), Hyperlipidemia, Hypertension, Myocardial Infarction Denies:: Cancer, Diabetes Mellitus Type 1, Internal Pacemaker, MRSA, Seizures *Have you ever received a pneumonia vaccine?: No *Have you received a flu vaccine this season?: No Other Medical History: Reports: Cataracts, Other Other Surgeries: Yes: CABG, Cardiac Catheterization, Cardiac Surgery, Coronary Stent. No: Pacemaker Amputation: No Fractures: No - *Social History Smoking Status: Former smoker Tobacco Type: cigarettes # Packs/Day (cigarettes): 1 #Yrs smoked (if former smoker): 44 Alcohol Intake: never Alcohol Intake Frequency:: 3 or more drinks per day Substance Use Type: denies use *Occupational Status:: unemployed Household Members: spouse *Travel in the last 8 weeks: None Family Hx:: Unable to obtain Review of Systems - Review of Systems Review of systems:: pertinent systems reviewed and negative unless documented below Meds Home Medications Medication Instructions Recorded Confi
[2021-01-08] VITALS (10 sets, daily range): BP systolic 127–186; BP diastolic 67–98; PULSE 80–106; RESP 20–28; TEMP 36.9–37.8; O2SAT 89–93; BMI 286221.4; BMI 28.4
--- NOTE | 2021-01-08 00:11 | PC.NURSE ---
He is alert to person and place but was unsure of the time. At the beginning of the shift he was on vapotherm @ 40LPM 100% FiO2. His vapotherm tubing became disconnected and his sats dropped into the 70s. He was having a difficult time rebounding; therefore, respiratory placed a non-rebreather over his vapotherm. If his sats allow, plans are to wean off non-rebreather. Voids per f/c. His urine is yellow with sediment. He denies pain. Intermittent cough present. He denies sputum production. He reports nasal drainage.
[2021-01-08 05:32] LABS: Basophils % 0.3 % (0.1-2.0); Eosinophils # 0.2 K/mm3 (0.0-0.4); Eosinophils % 2.2 % (0.1-12.0); Hematocrit 34.1 % (42.0-52.0); Lymphocytes # 0.8 K/mm3 (0.7-4.5); Lymphocytes % 9.8 % (10-50); Mean Corpuscular HGB Conc 32.9 g/dL (31.8-35.4); Mean Corpuscular Hemoglobin 26.8 pg (27.0-31.2); Mean Corpuscular Volume 81.4 fl (80-94); Mean Platelet Volume 8.2 fl (7.4-10.4); Monocytes # 0.4 K/mm3 (0.1-1.0); Monocytes % 5.5 % (1.7-9.3); Neutrophils # 6.3 K/mm3 (1.8-7.8); Neutrophils % 82.1 % (37.0-80.0); Platelet Count 215 K/mm3 (142-424); Red Blood Count 4.19 M/mm3 (4.60-6.20); Red Cell Distribution Width 15.4 % (11.5-17.5); White Blood Count 7.7 K/mm3 (4.8-10.8)
[2021-01-08 05:33] LABS: Hemoglobin 11.2 g/dL (14.1-18.0)
[2021-01-08 05:45] LABS: Anion Gap 7.9 mEq/L (5-15); Blood Urea Nitrogen 15 mg/dl (9-20); Calcium 7.8 mg/dl (8.4-10.2); Carbon Dioxide 28 mmol/L (22.0-30.0); Chloride 99 mmol/L (98-107); Creatinine Clearance Estimated 176 mL/min (50-200); Estimated Glomerular Filt Rate 139 ml/min (>60); GFR (African American) 169 ML/MIN (>60); Glucose 156 mg/dl (74-100); Potassium 3.9 mmoL/L (3.5-5.1); Sodium 131 mmol/L (136-145)
--- NOTE | 2021-01-08 07:54 | HMH.ACPN2 ---
Internal Medicine - PN: Subj *Date: 01/08/21 *Time: 09:21 Interval history: Patient tolerated Vapotherm overnight. Remains slightly hypertensive this morning. Denies chest pain, nausea, vomiting. Afebrile. Exam Vital signs and Labs for Last 24 Hours: Temp Pulse Resp BP Pulse Ox 99.3 F 95 H 22 178/95 H 89 L 01/08/21 05:14 01/08/21 05:14 01/08/21 05:14 01/08/21 05:14 01/08/21 05:18 Laboratory Results - last 24 hr 01/07/21 09:35: Specimen Source Right radial, O2 % Nrb, ABG pH 7.43, ABG pCO2 39.5, ABG pO2 52.2 L, ABG HCO3 25.7, ABG Total CO2 27.0, ABG O2 Saturation 87 L*, ABG Base Excess 1.5, Samm Test Acceptable 01/07/21 09:42: WBC 9.9, RBC 4.93, Hgb 13.6 L, Hct 40.7 L, MCV 82.6, MCH 27.6, MCHC 33.4, RDW 15.2, Plt Count 225, MPV 8.6, Neut % (Auto) 82.5 H, Lymph % (Auto) 9.4 L, Isabela % (Auto) 4.6, Eos % (Auto) 2.9, Baso % (Auto) 0.6, Neut # (Auto) 8.1 H, Lymph # (Auto) 0.9, Isabela # (Auto) 0.5, Eos # (Auto) 0.3, Baso # (Auto) 0.1 01/07/21 09:42: Sodium 129 L, Potassium 4.1, Chloride 94 L, Carbon Dioxide 31 H, Anion Gap 8.1, BUN 17, Creatinine 0.80, Estimated GFR 100, Est GFR ( Amer) 121, Glucose 200 H, Calcium 8.2 L, Total Bilirubin 0.7, AST 32, ALT 16, Alkaline Phosphatase 101, Troponin I < 0.01, Total Protein 6.8, Albumin 2.9 L, Globulin 3.9 H, Albumin/Globulin Ratio 0.7 L 01/07/21 09:42: Lactate 1.5 01/07/21 09:47: SARS-CoV-2 (PCR) Detected A, Influenza A Untype (PCR) Not detected, Influenza Type B (PCR) Not detected 01/07/21 13:14: Troponin I 0.01 01/07/21 15:35: Urine Color Yellow, Urine Appearance Sl cloudy, Urine pH 6.5, Ur Specific Harbert 1.020, Urine Protein 2+, Urine Glucose (UA) 1+, Urine Ketones Negative, Urine Blood 1+, Urine Nitrate Negative, Urine Bilirubin Negative, Urine Urobilinogen 0.2, Ur Leukocyte Esterase Negative, Urine RBC Occasional, Urine WBC 3-5, Ur Squamous Epith Cells Occasional, Urine Bacteria Trace 01/08/21 05:10: WBC 7.7, RBC 4.19 L, Hgb 11.2 L D, Hct 34.1 L, MCV 81.4, MCH 26.8 L, MCHC 32.9, RDW 15.4, Plt Count 215, MPV 8.2, Neut % (Auto) 82.1 H, Lymph % (Auto) 9.8 L, Isabela % (Auto) 5.5, Eos % (Auto) 2.2, Baso % (Auto) 0.3, Neut # (Auto) 6.3, Lymph # (Auto) 0.8, Isabela # (Auto) 0.4, Eos # (Auto) 0.2, Baso # (Auto) 0.0 01/08/21 05:10: Sodium 131 L, Potassium 3.9, Chloride 99, Carbon Dioxide 28, Anion Gap 7.9, BUN 15, Creatinine 0.60 L D, Estimated Creat Clear 176, Estimated GFR 139, Est GFR ( Amer) 169 D, Glucose 156 H D, Calcium 7.8 L I & O for Last 24 hours: Intake & Output 01/05/21 01/06/21 01/07/21 01/08/21 23:59 23:59 23:59 23:59 Intake Total 480 / 480 390 / 390 Output Total 250 / 250 1000 / 1000 Balance 230 / 230 -610 / -610 Weight 90.718 kg 90.492 kg - Constitutional mild distress, cooperative - *Routine HEENT Exam Head: Present: normocephalic Eye: Present: EOMI, PERRL ENT: Present: mucous membranes moist - *Routine Neck Exam Present: supple. Absent: lymphadenopathy - *Routine Respiratory Exam Present: crackles (RLL). Absent: wheezes - *Routine Cardiovascular Exam Present: RRR - *Routine Abdominal Exam Present: soft, normoactive bowel sounds. Absent: tenderness - *Routine Extremities Exam Absent: cyanosis, clubbing, edema - *Routine Skin Exam Present: warm. Absent: rash - *Routine Neurological Exam Present: alert, oriented X3 Assessment and Plan (1) Lobar pneumonia Status: Acute Category: Medical Code(s): J18.1 - Lobar pneumonia, unspecified organism (2) Viral pneumonitis Status: Acute Category: Medical Code(s): J12.9 - Viral pneumonia, unspecified (3) COVID-19 virus infection Status: Acute Category: Medical Code(s): U07.1 - COVID-19 (4) Pulmonary embolism Status: Acute Category: Medical Code(s): I26.99 - Other pulmonary embolism without acute cor pulmonale (5) HTN (hypertension) Status: Chronic Qualifiers: Hypertension type: essential hypertension Category: Medical Code(s): I10 - Essenti
[2021-01-08 11:33] LABS: POC Glucose,Bedside 161 (70-110)
--- NOTE | 2021-01-08 19:51 | PC.NURSE ---
Pt to floor this afternoon from covit unit. Pt has rested well. VSS. Vapotherm continues to be in use with sats 88-90% on 40 L and 80%. CB in reach.
[2021-01-08 21:14] LABS: POC Glucose,Bedside 239 (70-110)
[2021-01-08 23:08] LABS: Vancomycin,Trough 16.3 ug/mL (5.0-10.0)
[2021-01-09] VITALS: BP 149/71; PULSE 102; PULSE 90; RESP 24; TEMP 36.7; O2SAT 83
[2021-01-09 01:24] LABS: POC Glucose,Bedside 148 (70-110)
[2021-01-09 01:34] VITALS: O2SAT 92
[2021-01-09 03:12] LABS: Basophils # 0.1 K/mm3 (0-0.2); Basophils % 0.4 % (0.1-2.0); Eosinophils # 0.3 K/mm3 (0.0-0.4); Eosinophils % 2.6 % (0.1-12.0); Hematocrit 32.9 % (42.0-52.0); Lymphocytes # 0.7 K/mm3 (0.7-4.5); Lymphocytes % 5.9 % (10-50); Mean Corpuscular HGB Conc 33.6 g/dL (31.8-35.4); Mean Corpuscular Hemoglobin 26.8 pg (27.0-31.2); Mean Corpuscular Volume 79.7 fl (80-94); Mean Platelet Volume 7.4 fl (7.4-10.4); Monocytes # 0.5 K/mm3 (0.1-1.0); Neutrophils # 10.5 K/mm3 (1.8-7.8); Neutrophils % 87.2 % (37.0-80.0); Platelet Count 281 K/mm3 (142-424); Red Blood Count 4.12 M/mm3 (4.60-6.20); Red Cell Distribution Width 14.4 % (11.5-17.5); White Blood Count 12.1 K/mm3 (4.8-10.8)
[2021-01-09 03:16] LABS: MANUAL DIFFERENTIAL MANUAL DIFFERENTIAL (MANUAL DIFF)
--- NOTE | 2021-01-09 03:22 | PC.NURSE ---
At beginning of shift pt's O2 was 79%-80% and pt reports having difficulty breathing, called RT to turn Vapotherm up. RT turned vapotherm to 40L and 100% and placed non rebreather on pt. RT told this RN could remove non rebreather whenever stats increase. 02:30 removed non rebreather, pt's O2 stats have remained >90%. Moved O2 sensor to pt's [place]. Pt remains on Vapotherm 40L, 100% with stats >90%, pt denies any SOA, or pain t/o remaining of shift. Moore is draining clear, yellow urine. Pt did not eat any of his dinner, reported he was not feeling well at the time. 03:00 pt requested water and ice cream. Pt ate all of the ice cream. VSS, call light within reach, will continue to monitor.
[2021-01-09 04:00] VITALS: BP 143/84; PULSE 100; RESP 18; TEMP 36.6; O2SAT 92
[2021-01-09 04:00] LABS: Vancomycin,Peak 15.9 ug/ml (11-39)
[2021-01-09 04:13] LABS: Alanine Aminotransferase 14 U/L (12-78); Albumin Level 2.3 g/dl (3.5-5.0); Albumin/Globulin Ratio 0.7 (1.1-1.8); Alkaline Phosphatase 81 U/L (38-126); Anion Gap 10.3 mEq/L (5-15); Aspartate Amino Transferase 41 U/L (17-59); Bilirubin,Total 0.7 mg/dl (0.2-1.3); Blood Urea Nitrogen 18 mg/dl (9-20); Calcium 7.7 mg/dl (8.4-10.2); Carbon Dioxide 24 mmol/L (22.0-30.0); Chloride 99 mmol/L (98-107); Creatinine Clearance Estimated 175 mL/min (50-200); Estimated Glomerular Filt Rate 139 ml/min (>60); GFR (African American) 169 ML/MIN (>60); Globulin 3.2 g/dL (1.3-3.2); Glucose 125 mg/dl (74-100); Magnesium 1.7 mg/dl (1.6-2.3); Potassium 4.3 mmoL/L (3.5-5.1); Sodium 129 mmol/L (136-145); Total Protein,Serum 5.5 g/dl (6.3-8.2)
[2021-01-09 04:27] LABS: Eosinophils % 5 % (0-3); Lymphocytes % 5 % (10-50); Microcytosis 1+; Neutrophils % 80 % (42-76); Platelet Estimate Normal; Total Cells Counted 100
[2021-01-09 04:47] VITALS: BMI 28.5
--- NOTE | 2021-01-09 06:00 | ECG_ITS ---
APPROVED REPORT Exam: Resting ECG HR:135 bpm ECG Measurements Heart Rate 135 AXES ME 130 P 44 QRSd 110 QRS -40 QT 314 T 54 QTc 471 Conclusion Sinus tachycardia Possible Left atrial enlargement Left axis deviation Inferior infarct, age undetermined Abnormal ECG Electronically signed by : Brian Mohr MD 01/11/2021 21:25:30
--- NOTE | 2021-01-09 06:02 | XR_ITS ---
PROCEDURE INFORMATION: Exam: XR Chest Exam date and time: 01/09/2021 6:02 AM Age: 55 years old Clinical indication: Device placement; Ett placement (vent status); Additional info: Intubation TECHNIQUE: Imaging protocol: XR of the chest. Views: 1 view. COMPARISON: CR XR CHEST PORTABLE 01/07/2021 9:39 AM FINDINGS: Tubes, catheters and devices: An endotracheal tube is present with its tip 3.4 cm above the cornell. There are sternal wires consistent with previous sternotomy incision. Lungs: There is worsening of the airspace disease in both lungs. The right hemithorax is now nearly completely opacified. Pleural spaces: Unremarkable. No pleural effusion. No pneumothorax. Heart/Mediastinum: Unremarkable. No cardiomegaly. Bones/joints: Unremarkable. IMPRESSION: 1. An endotracheal tube is present with its tip 3.4 cm above the cornell. 2. There is worsening of the airspace disease in both lungs. The right hemithorax is now nearly completely opacified.
[2021-01-09 06:18] LABS: Basophils # 0.1 K/mm3 (0-0.2); Basophils % 0.5 % (0.1-2.0); Eosinophils # 0.2 K/mm3 (0.0-0.4); Eosinophils % 1.4 % (0.1-12.0); Hematocrit 35.9 % (42.0-52.0); Hemoglobin 11.6 g/dL (14.1-18.0); Lymphocytes # 3.2 K/mm3 (0.7-4.5); Lymphocytes % 17.7 % (10-50); Mean Corpuscular HGB Conc 32.2 g/dL (31.8-35.4); Mean Corpuscular Hemoglobin 27.3 pg (27.0-31.2); Mean Corpuscular Volume 84.6 fl (80-94); Mean Platelet Volume 8.5 fl (7.4-10.4); Monocytes # 0.8 K/mm3 (0.1-1.0); Monocytes % 4.3 % (1.7-9.3); Neutrophils # 13.5 K/mm3 (1.8-7.8); Platelet Count 399 K/mm3 (142-424); Red Blood Count 4.24 M/mm3 (4.60-6.20); Red Cell Distribution Width 14.5 % (11.5-17.5); White Blood Count 17.8 K/mm3 (4.8-10.8)
--- NOTE | 2021-01-09 06:24 | PC.NURSE ---
PT WAS TRANSFERRED VIA BED TO ICU W/STAFF AT 0625
[2021-01-09 06:25] LABS: Chloride 98 mmol/L (98-107); Sodium 130 mmol/L (136-145)
[2021-01-09 06:28] LABS: Anion Gap 17.2 mEq/L (5-15); Blood Urea Nitrogen 20 mg/dl (9-20); Calcium 8.3 mg/dl (8.4-10.2); Carbon Dioxide 21 mmol/L (22.0-30.0); Creatinine Clearance Estimated 96 mL/min (50-200); Estimated Glomerular Filt Rate 69 ml/min (>60); GFR (African American) 84 ML/MIN (>60)
[2021-01-09 06:30] VITALS: O2SAT 89
--- NOTE | 2021-01-09 06:32 | HMH.RR ---
Acute Rapid Response Note - Subjective Date Responded: 01/09/21 Time Responded: 06:00 Provider Note: pt had dev dec hr and bp and dec loc and resp effort - pt with pea and acls protocol started - Objective Findings: Vital Signs - Last 4 Hours Temperature 97.8 F 01/09/21 04:00 Temperature Source Oral 01/09/21 04:00 Pulse Rate 100 H 01/09/21 04:00 Respiratory Rate 18 01/09/21 04:00 Blood Pressure 143/84 H 01/09/21 04:00 Blood Pressure Mean 103 01/09/21 04:00 Blood Pressure Source Automatic Cuff 01/09/21 04:00 Blood Pressure Position Left Lateral 01/09/21 00:00 02 Sat by Pulse Oximetry 92 L 01/09/21 04:00 Oxygen Delivery Method 01/09/21 04:50 Oxygen Flow Rate (LPM) 40 01/09/21 04:50 Lab Results for Past 12 Hours 01/09/21 06:07: WBC 17.8 H D, RBC 4.24 L, Hgb 11.6 L, Hct 35.9 L, MCV 84.6, MCH 27.3, MCHC 32.2, RDW 14.5, Plt Count 399 D, MPV 8.5, Neut % (Auto) 76.0, Lymph % (Auto) 17.7, [place] % (Auto) 4.3, Eos % (Auto) 1.4, Baso % (Auto) 0.5, Neut # (Auto) 13.5 H, Lymph # (Auto) 3.2, [place] # (Auto) 0.8, Eos # (Auto) 0.2, Baso # (Auto) 0.1 01/09/21 03:00: Sodium 129 L, Potassium 4.3, Chloride 99, Carbon Dioxide 24, Anion Gap 10.3, BUN 18, Creatinine 0.60 L, Estimated Creat Clear 175, Estimated GFR 139, Est GFR ( Amer) 169, Glucose 125 H, Calcium 7.7 L, Magnesium 1.7, Total Bilirubin 0.7, AST 41 D, ALT 14, Alkaline Phosphatase 81, Total Protein 5.5 L, Albumin 2.3 L, Globulin 3.2, Albumin/Globulin Ratio 0.7 L 01/09/21 03:00: WBC 12.1 H D, RBC 4.12 L, Hgb 11.0 L, Hct 32.9 L, MCV 79.7 L, MCH 26.8 L, MCHC 33.6, RDW 14.4, Plt Count 281 D, MPV 7.4, Neut % (Auto) 87.2 H, Lymph % (Auto) 5.9 L, [place] % (Auto) 4.0, Eos % (Auto) 2.6, Baso % (Auto) 0.4, Neut # (Auto) 10.5 H, Lymph # (Auto) 0.7, [place] # (Auto) 0.5, Eos # (Auto) 0.3, Baso # (Auto) 0.1, Total Counted 100, Neutrophils % (Manual) 80 H, Band Neutrophils % 10.0 H, Lymphocytes % (Manual) 5 L, Eosinophils % (Manual) 5 H, Platelet Estimate Normal, Microcytosis 1+ 01/09/21 03:00: Vancomycin Peak 15.9 01/08/21 22:26: Vancomycin Trough 16.3 H 01/08/21 20:38: POC Glucose 148 H 01/08/21 16:40: POC Glucose 239 H My Orders Category Date Time Status XR chest portable Stat Exams 01/09/21 06:02 Taken Basic Metabolic Panel Stat Lab 01/09/21 06:07 Received Complete Blood Count Auto Diff Stat Lab 01/09/21 06:07 Completed Troponin I Stat Lab 01/09/21 06:07 Received Arterial Blood Gas Stat RT 01/09/21 06:11 Ordered 12-lead EKG Request [ECG Request by /Ingrid] Stat Y 01/09/21 06:11 Ordered - Radiology Findings #1 Xray Reviewed: Chest Image Reviewed: Yes I reviewed the patient's radiology image ED XR Results: Abnormal (et tube ok and increased inflitrates ) - ECG Data Tracing #1 Arrhythmias present: sinus tach Ischemic changes: non-specific ST-T wave changes Rapid Response Exam - General General appearance: obtunded - Head Head exam: atraumatic - Eye Eye exam: Present: PERRL, EOMI - ENT ENT exam: Present: mucous membranes dry - Neck Neck exam: Present: trachea midline - Chest Chest inspection: Present: other (dec bs bilat ) - Respiratory Respiratory exam: Present: respiratory distress - Cardiovascular Cardiovascular exam: Present: other (puse with palpation ) - Abdominal Exam Abdominal exam: Present: soft - Extremities Exam Extremities exam: Present: pedal edema - Neurological Exam Neurological exam: Present: other (no posturing ) - Skin Skin exam: Absent: rash RR Procedures/Assess/Plan - Bedside Intubation Time Out Performed: No Sedative: none Laryngoscope: Anderson Tube size: 7.5 Tube uncuffed: No Secured Depth: 25 Secured location: lips Placement confirmation: visualized tube passing through cords, confirmation by capnometry Patient tolerated procedure intubation: no complications Intubation Complications: none - Additional Bedside Procedures Arterial blood draw: Yes (lt groin) - Reevaluatio
[2021-01-09 06:33] LABS: Glucose 178 mg/dl (74-100); Potassium 6.2 mmoL/L (3.5-5.1)
[2021-01-09 06:34] VITALS: BP 138/68; BP 138/72
--- NOTE | 2021-01-09 06:37 | PC.NURSE ---
This RN entered the room at 05:48 and found pt was very diaphoretic, lips were blue, and non responsive. 05:49- Rapid Red Response was called 05:50 Took B/P-75/40, FSBS- 180 05:52 No pulse, CPR started 05:54 Rhythm Check- PEA 05:55 Epi pushed in L A/C IV 05:56 Rhythm check- Sinus rickie 05:56 Atropine given, Brittany to room at this time 05:58 Epi pushed and flushed 05:58 Rhythm check- Pulse detected, Sinus rickie 06:00 Intubated 7.5 ET tube 22@ lip 06:02 ABG drawn 06:04 B/P 171/104 06:05 Labs drawn- Brittany ordered CBC, BMP, Trop, 06:07 EKG Done, No ST elevation EKG read by Brittany 06:09 B/P 140/80 06:10 Radiology at bedside for chest x-ray 06:11 Brittany ordered: 4mg of Versed, pushed and flushed 06:12 Thomas Paged for update on Pt's status 06:13 Propofol Started, ABG results at bedside from RT 06:15 1 amp bicarb given, called back, gave status update on pt 06:16 B/P 94/64 0618 Report called to Ed Sigala RN in ICU 06:20 B/P 93/58 06:24 Pt was transfered to ICU by Roselia Marie, and RT 06:25 Called Pt's Che with update on 's status Staff present: Roselia Sutherland RN, Che Ashley RN, Annika Worthington RN, Milagro Combs RN, Georgie Ly RN, Jenny RT, Basilia ST, Dr. Soto, Carly SABILLONA
[2021-01-09 06:44] LABS: Troponin I 0.01 ng/ml (0.00-0.034)
--- NOTE | 2021-01-09 07:20 | XR_ITS ---
PROCEDURE INFORMATION: Exam: XR Chest Exam date and time: 01/09/2021 7:20 AM Age: 55 years old Clinical indication: Device placement; Ett placement (vent status); Additional info: PT intubated/code TECHNIQUE: Imaging protocol: XR of the chest. Views: 1 view. COMPARISON: CR XR CHEST PORTABLE 01/09/2021 6:09 AM FINDINGS: Limitations: Motion artifact Tubes, catheters and devices: Endotracheal tube remains in place with the tip above the cornell. There are sternal wires consistent with previous sternotomy incision. Lungs: There continues to be airspace disease in both lungs, right greater than left, unchanged. Pleural spaces: Unremarkable. No pleural effusion. No pneumothorax. Heart/Mediastinum: Unremarkable. No cardiomegaly. Bones/joints: Unremarkable. IMPRESSION: Stable chest.
--- NOTE | 2021-01-09 07:51 | PC.NURSE ---
Che Hernandez updated on status and she is now at bedside.
[2021-01-09 08:00] VITALS: BP 186/98; PULSE 141; PULSE 150; RESP 23; TEMP 36.8; O2SAT 89
--- NOTE | 2021-01-09 08:58 | [facility].DEATH ---
Pronouncement Note - Date and Time of Date of : 01/09/21 Time of : 08:50 - Additional Data Confirmation of : no pulse, no respirations, no heart sounds Additional persons at bedside: other Attending/PCP notified?: Yes Attending physician: Brian Mohr MD Was code activated?: No Autopsy requested?: No legal instruments examiner notified?: No Organ bank notified?: Yes Advance directives: Yes
--- NOTE | 2021-01-09 09:00 | [facility].DEADDC ---
Discharge Sum: Prov - Provider Primary care physician: Brian Mohr MD Visit Care Team Role Provider Type Marshal Vaca MD Emergency Provider ER Physician Brian Mohr MD Admit Provider Staff Physician Attending Provider Primary Care Provider Admitting clinician: Brian Mohr Attending physician on admission: Brian Mohr Pronouncing clinician: Brian Mohr Discharge Sum: Summary - Date and Time Date of admission: 01/07/21 13:50 Date of : 01/09/21 Time of : 08:50 - Hospital Course prior to Hospital Course Information: Patient is a 55-year-old male presents the ED today with hypoxia at home. Patient is unwell appearing on initial evaluation, brought in by EMS for severe hypoxia with oxygen saturation in the mid 60s. Placed on a high flow nasal cannula with FiO2 of 100% and 40 L/min, has been able to have consistent oxygen saturation above 92%. Not needed to progress to further noninvasive positive pressure ventilation at this time, chest x-ray is obtained with diffuse lower zone bilateral groundglass opacity, this is mildly worse than his prior x-ray when reviewed, this could be consistent with an overlying pneumonia given recent hospitalization patient was started on broad-spectrum antibiotics blood cultures were obtained. All the patient's syndrome could be consistent with a diagnosis of sepsis I do not believe that additional fluid in this patient will be of help and could possibly be of harm, reversible administer for the milligrams of IV Lasix for diuresis to attempt proved lung function. CT pulmonary embolism study obtained, an independent evaluation did not visualize any pneumothorax, there is pneumomediastinum, no saddle pulmonary embolus, and will await radiology interpretation for further evaluation. Patient has bilateral diffuse groundglass opacities with posterior consolidation. Discussed with patient's family his current situation, and have discussed intubation status with the patient, patient wants to wait for his to arrive. CT pulmonary embolism does not show any evidence of pulmonary embolism, however it is unable to visualize the pulmonary arteries in the posterior lobes of the lung secondary to severe consolidation. Has been stable on his high flow nasal cannula requirement thus far, will be admitted to our intensive care unit. Above note per ER physician: Backstory is that patient was diagnosed with Covid in December. He spent approximately 1 week in the hospital, on significant oxygen support over was not intubated. We aggressively diurese the patient and treated cardiomyopathy which seemed to improve him and he was able to be transitioned to home on nasal cannula oxygen. He initially did well but according to family members has not been doing his respiratory exercises, and has not been as aggressive with moving around and spirometry as it could have been and he has been basically lying flat on his back at home. Became suddenly short of air last night into this morning and was brought to the emergency department where issues were diagnosed as above. Briefly, work-up in the ER was as above. I requested a Doppler of his legs which is positive for DVT. Above note per HPI. Patient initially treated with BiPAP therapy. Unfortunately worsened, and consented to intubation. Pulmonary consultation initiated and appreciated. Patient unfortunately required increasingly high ventilator settings. Was placed on treatment dose Lovenox for his DVT and pulmonary embolism which seemed to have caused his respiratory compromise. Unfortunately in spite of diuresis, appropriate ventilator support and appropriate intake coagulation therapy patient worsened through the night last night and had several episodes
[2021-01-09 09:48] LABS: ABG Base Excess -14.7 mmol/L (-2.4-2.3); ABG HCO3 16.3 mmhg (22.0-26.0); ABG Oxygen Saturation 76 % (90-100); ABG PCO2 62.8 mmhg (35.0-45.0); ABG PH 7.03 mmol/L (7.35-7.45); ABG PO2 58.1 mmhg (80-100); ABG TCO2 18.3 mmhg (23-27); Oxygen 100 %
[2021-01-09 09:49] LABS: ABG PH 7.15 mmol/L (7.35-7.45)
[2021-01-09 09:50] LABS: ABG HCO3 24.1 mmhg (22.0-26.0); ABG PCO2 71.3 mmhg (35.0-45.0); ABG PO2 61.8 mmhg (80-100)
[2021-01-09 09:51] LABS: ABG Base Excess -5.5 mmol/L (-2.4-2.3); ABG Oxygen Saturation 83 % (90-100); ABG TCO2 26.3 mmhg (23-27); Oxygen 100 %; PEEP 18; Tidal Volume 440; Vent Rate 28
[2021-01-09 09:52] LABS: Allen's Test acceptable
--- NOTE | 2021-01-09 10:29 | PC.NURSE ---
late entry for code this mornin: code lexa called and CPR initiated. Pt connected to ZOLL and pads placed. 0654: 1mg Epi given 0656: 1mg Epi given, pulse check, no pulse, CPR resumed. FSBS 178 0657: Dr. Soto @ BS, pulse check per Dr. Soto, pulse palpable and is 148 0659: Lasix 40mg IV given per Dr. Guzman (order obtained from Dr. Guzman per S. Call RN when pt arrived to unit @ aprox 0630). BP 224/135. Levo gtt turned OFF 0701: 10 units insulin given IV and 1 amp D50 given per Dr. Guzman (order obtained from Dr. Guzman per S. Call RN when pt arrived to unit @ aprox 0630). 0702: Gerhard Ly RN inserted 20g left EJ 0704: 1g Ca Gluconate given per Dr. Guzman (order obtained from Dr. Guzman per S. Call RN when pt arrived to unit @ aprox 0630). 0731: 1mg Epi given. HR 55. BP 38/15 0734: no pulse palpable. Code lexa called and CPR initiated. 0735: 1mg Epi given 0737: pulse check. Pulse palpable and is 101. 0738: Dr. Soto @ BS. BP 200/128 manual and automatic cuff 0739: BP 211/120. HR 140. O2 sat 90% 0740: Dr. Soto ordered an Epi gtt. 0747: Epi gtt made and started @ 10mcg/min. HR 127. BP 190/98 automatic and 186/98 manual 0758: PEA and code blue called. CPR initiated. Family @ BS 0759: 1mg Epi given 0800: pulse check, no pulse, CPR continued 0801: 1mg Epi given 0802: pulse check. HR 147. Dr. Soto @ BS. Temp 98.2 oral 0816: made pt a DNR 0841: Dr. Mohr @ BS 0850: Pt pronounced by Dr. Mohr. TOD 0850. Multiple family members @ BS and coping appropriately. Pt to be released to [facility] for cremation. 0901: [facility] contacted and has been ruled out for donation. Spoke to Olinda. .
[2021-01-09 22:20] LABS: POC Glucose,Bedside 180 (70-110)
[2021-01-09 22:20] LABS: POC Glucose,Bedside 184 (70-110)
[2021-01-21 04:19] LABS: POC Glucose,Bedside 178 (70-110)
== END 2021-01-09 12:00 | disposition expired | DRG 208 ==
LOC: ER 11:52 → ICU 12:05 → 2ND 01-08 13:41 → ICU 01-09 06:25
PROVIDERS: Emergency Medicine; Internal Medicine Adolescent Medicine; Admitting Provider Internal Medicine Adolescent Medicine; Emergency Provider Student in an Organized Health Care Education/Training Program; PCP Internal Medicine Adolescent Medicine; Visit Provider Internal Medicine Adolescent Medicine
DX: U07.1 COVID-19 (principal); J96.21 Acute and chronic respiratory failure with hypoxia; J12.9 Viral pneumonia, unspecified; I82.451 Acute embolism and thrombosis of right peroneal vein; I25.10 Atherosclerotic heart disease of native coronary artery without angina pectoris; I50.9 Heart failure, unspecified; I11.0 Hypertensive heart disease with heart failure; E78.5 Hyperlipidemia, unspecified; I25.2 Old myocardial infarction; E11.9 Type 2 diabetes mellitus without complications; Z95.1 Presence of aortocoronary bypass graft; Z95.5 Presence of coronary angioplasty implant and graft; Z87.891 Personal history of nicotine dependence; I25.5 Ischemic cardiomyopathy; E66.9 Obesity, unspecified; Z68.28 Body mass index [BMI] 28.0-28.9, adult
CPT/HCPCS: 94002; 94003; 36415; 71045; 71275; 80048; 80053; 80202; 81001; 82803; 82962; 83605; 83735; 84484; 85007; 85025; 87040; 93005; 93970; 94760; 96365; 96375; 99285; C9803; J3370; Q9967; U0003; U0005